=== PATIENT | female | born 1985 | race Caucasian/White ===

== ENCOUNTER 2016-12-24 11:37 | Observation (INO) | payer OTHER ==
[2016-12-24] MEDS ORDERED: DUONEB 0.5-3 MG/3 ml Neb IH ONE ×2 (12:31→12:38)
[2016-12-24] MEDS ORDERED: Sodium Chloride 0.9% 1000 ML 1,000 ML ONE (12:34)
--- NOTE | 2016-12-24 12:39 | ERPHSYRPT ---
- History of Present Illness Time Seen by Provider: 12/24/16 12:28 Source: patient Exam Limitations: no limitations Patient Subjective Stated Complaint: SOB SINCE EARLY THIS AM Triage Nursing Assessment: TO ROOM PER W/C. SKIN W/D, COLOR NORMAL, RESP RAPID , PATIENT HYPERVENTILATING. ENCOURAGED TO TAKE DEEP BREATHS AND SLOW BREATHING. STATES ARMS AND HANDS NUMB. STATES INHALER DIDN'T HELP HER TODAY. BREATH SOUNDS CLEAR THROUGHOUT. AFTER ENCOURAGEMENT TO SLOW BREATHING PATIENT 'S RESP HAVE SLOWED AND STATES SHE FEELS BETTER. Physician History: 31-year-old white female with history of migraines, seizures, hypothyroidism, hydrocephalus, shunt spina bifida Patient arrives with complaint of sudden onset of shortness of breath at 8:30 this morning she states she has been short of breath all day she states that she usually gets like this and gets improvement after using an inhaler however it continues. Patient apparently arrived the hyperventilating per nurse. Shortly after I began examining the patient when I sit her up and asked her to breathe she begins to complain of sharp pains in her left upper lateral abdomen as well She states she continues to feel short of breath Past medical history includes migraines, seizures, hypothyroidism, abnormal uterine bleeding, hydrocephalus, shunt, spina bifida Past surgical history includes , tubal ligation, shunt for hydrocephalus. Social history positive tobacco use Timing/Duration: today (8:30 this morning) Severity: moderate Modifying Factors: Improves With: other (no relief with albuterol) Associated Symptoms: abdominal pain (left upper lateral abdominal pain), shortness of breath, No nausea, No vomiting, No heartburn, No diaphoresis, No cough, No chills, No chest pain, No fever, No headaches, No loss of appetite, No malaise, No rash, No syncope, No seizure, No weakness Allergies/Adverse Reactions: aspirin Allergy (Verified 12/24/16 11:41) ibuprofen Allergy (Verified 12/24/16 11:41) Home Medications: Phentermine HCl [Adipex-P] 37.5 mg PO DAILY 12/24/16 [History] Hx Tetanus, Diphtheria Vaccination/Date Given: No Hx Influenza Vaccination/Date Given: No Hx Pneumococcal Vaccination/Date Given: No - Review of Systems Constitutional: No Fever, No Chills Eyes: No Symptoms Ears, Nose, & Throat: No Symptoms Respiratory: Other (patient feels short of breath) Cardiac: No Chest Pain, No Edema, No Syncope Abdominal/Gastrointestinal: Abdominal Pain (left upper lateral abdominal pain) Genitourinary Symptoms: No Dysuria Musculoskeletal: No Back Pain, No Neck Pain Skin: No Rash Neurological: Parasthesia (paresthesias of both hands), No Dizziness, No Focal Weakness, No Gait Changes, No Headache, No Irritability, No Lethargy, No Paralysis, No Seizure, No Sensory Changes, No Speech Changes, No Tics, No Tremors, No Vertigo Psychological: No Symptoms Endocrine: No Symptoms All Other Systems: Reviewed and Negative - Past Medical History Pertinent Past Medical History: Yes Neurological History: Migraines, Seizures ENT History: No Pertinent History Cardiac History: No Pertinent History Respiratory History: No Pertinent History Endocrine Medical History: Hypothyroidism Musculoskeletal History: Other GI Medical History: No Pertinent History History: No Pertinent History Female Reproductive Disorders: Abnormal Uterine Bleeding Other Medical History: HAVE SHUNT BETWEEN SHOULDER BLADES D/T HAVING. SPINA Bifida placed when she was 2 - Past Surgical History Past Surgical History: Yes Neuro Surgical History: No Pertinent History Cardiac: No Pertinent History Respiratory: No Pertinent History Gastrointestinal: No Pertinent History Genitourinary: Other Female Surgical History: Section, Tubal Ligation Other Surgical History: KIDNEY REMOVED LEFT SIDE - Social History Smoking Status: Former smoker How long have you smoked: 12 Exposure to second hand smoke: No Drug Use: none Patient Lives Alone: No Significant Family History: no pertinent family hx - Female History Hx Now: No - Nursing Vital Signs Nursing Vital Signs: Initial Vital Signs Temperature 98 F 12/24/16 11:38 Pulse Rate 97 H 12/24/16 11:38 Respiratory Rate 26 H 12/24/16 11:38 Blood Pressure 158/79 12/24/16 11:38 O2 Sat by Pulse Oximetry 100 12/24/16 11:38 Pain Scale Pain Intensity 0 - Physical Exam General Appearance: other (well-developed obese white female flushed in appearnce, anxious) Eye Exam: PERRL/EOMI, eyes nml inspection Ears, Nose, Throat Exam: normal ENT inspection, TMs normal, pharynx normal, moist mucous membranes Neck Exam: normal inspection, non-tender, supple, full range of motion Respiratory Exam: lungs clear, airway intact, diminished breath sounds, No chest tenderness, No respiratory distress Cardiovascular Exam: regular rate/rhythm, normal heart sounds, normal peripheral pulses Gastrointestinal/Abdomen Exam: soft, normal bowel sounds, tenderness (Tender left upper lateral abdomen. With palpation), No mass Back Exam: normal inspection, normal range of motion, No CVA tenderness, No vertebral tenderness Extremity Exam: normal inspection, normal range of motion, pelvis stable Neurologic Exam: alert, oriented x 3, cooperative, normal mood/affect, nml cerebellar function, nml station & gait, sensation nml, No motor deficits Skin Exam: other (Flushed in appearance) SpO2 Interpretation: normal (100%) SpO2: 100 Oxygen Delivery: Room Air - Course Nursing assessment & vital signs reviewed: Yes EKG Interpreted by Me: RATE (93 bpm), Sinus Rhythm, NORMAL AXIS, Other (EKG sinus rhythm with moderate amount of artifact, 93 bpm normal axis no acute ST or T wave changes noted) - Radiology Exams Chest X-ray Interpretation: Discussed w/ radiologist, Other (chest x-ray; Normal heart longer and bony thorax) Ordered Tests: Active Orders 24 hr Category Date Time Status EKG-ER Only STAT Care 12/24/16 12:31 Active IV Insertion STAT Care 12/24/16 12:31 Active CHEST 1 VIEW (PORTABLE) Stat Exams 12/24/16 13:23 Completed AMYLASE Stat Lab 12/24/16 12:00 Completed CBC W DIFF Stat Lab 12/24/16 12:00 Completed CMP Stat Lab 12/24/16 12:00 Completed CULTURE,URINE Stat Lab 12/24/16 14:25 Received D-DIMER QUANTITATION Stat Lab 12/24/16 12:00 Completed HCG QUALITATIVE,SERUM Stat Lab 12/24/16 12:00 Completed LIPASE Stat Lab 12/24/16 12:00 Completed Manual Differential NC Stat Lab 12/24/16 12:00 Completed TROPONIN Q3H Lab 12/24/16 12:45 Ordered TROPONIN Q3H Lab 12/24/16 15:45 Ordered TROPONIN Q3H Lab 12/24/16 18:45 Ordered TROPONIN Q3H Lab 12/24/16 21:45 Ordered TROPONIN Q3H Lab 12/25/16 00:45 Ordered UA W/ MICROSCOPIC Stat Lab 12/24/16 14:25 Completed VENOUS BLOOD GAS Stat Lab 12/24/16 12:31 Completed Respiratory Nebulizer STAT RT 12/24/16 12:33 Completed Medication Summary Generic Name Dose Route Start Last Admin Trade Name Freq PRN Reason Stop Dose Admin Sodium Chloride 1,000 mls @ 100 mls/hr 12/24/16 12:45 12/24/16 12:38 Sodium Chloride 0.9% 1000 Ml IV 01/23/17 12:44 100 mls/hr .Q10H ANTOINE Administration Ceftriaxone Sodium/Dextrose 1 g in 50 mls @ 100 mls/hr 12/24/16 15:06 Rocephin 1 Gm-D5w 50 Ml Bag IV 12/24/16 15:35 STAT STA Discontinued Medications Generic Name Dose Route Start Last Admin Trade Name Pedro Pablo PRN Reason Stop Dose Admin Albuterol/Ipratropium 3 ml 12/24/16 12:31 12/24/16 12:42 Duoneb 0.5-3 Mg/3 Ml Neb IH 12/24/16 12:32 3 ml STAT ONE Administration Albuterol/Ipratropium Confirm 12/24/16 12:38 Duoneb 0.5-3 Mg/3 Ml Neb Administered 12/24/16 12:39 Dose 3 ml IH .STK-MED ONE Lab/Rad Data: Laboratory Result Diagrams 12/24/16 12:00 12/24/16 12:00 Laboratory Results 12/24/16 12/24/16 12/24/16 Range/Units 14:25 12:31 12:00 WBC (4.0-10.5) K/mm3 RBC (4.1-5.4) M/mm3 Hgb (12.0-16.0) gm/dl Hct (35-47) % MCV (78-100) fl MCH (26-32) pg MCHC (32-36) g/dl RDW (11.5-14.0) % Plt Count (150-450) K/mm3 MPV (6-9.5) fl Segmented Neutrophils (36.0-66.0) % Lymphocytes (Manual) (24-44) % Monocytes (Manual) (0.0-12.0) % Differential Comment Platelet Estimate (NORMAL) D-Dimer (0-500) ng/mL VBG pH 7.62 H* (7.32-7.42) VBG pCO2 at Pat Temp 20 L* (42-55) mm/Hg VBG pO2 at Pat Temp 14 L (25-40) mm/Hg VBG HCO3 20.6 L (22-28) meq/L VBG O2 Sat (Ani) 31.8 L (95-100) VBG Base Excess 1.9 (-2.0-2.0) VBG Hemoglobin 15.7 VBG Carboxyhemoglobin 1.6 (0.0-6.9) % T HGB POC Potassium 3.0 L* (3.5-5.1) Sodium (136-145) mEq/L Potassium (3.5-5.1) mEq/L Chloride (98-107) mEq/L Carbon Dioxide (21-32) mEq/L Anion Gap (5-15) MEQ/L BUN (9-20) mg/dL Creatinine (0.55-1.30) mg/dl Estimated GFR ML/MIN Glucose (70-110) MG/DL Calcium (8.5-10.1) mg/dL Total Bilirubin (0.2-1.0) mg/dL AST (15-37) U/L ALT (12-78) U/L Alkaline Phosphatase (46-116) U/L Serum Total Protein (6.4-8.2) gm/dL Albumin (3.4-5.0) g/dL Amylase (25-115) U/L Lipase (73-393) U/L Serum , Qual NEGATIVE (Negative) Ur Collection Type VOID Urine Color YELLOW (YELLOW) Urine Appearance CLOUDY (CLEAR) Urine pH 8.0 (5-6) Ur Specific [place] 1.005 (1.005-1.025) Urine Protein NEGATIVE (Negative) Urine Ketones MODERATE (NEGATIVE) Urine Blood 5-10 (0-5) Victor M/ul Urine Nitrite NEGATIVE (NEGATIVE) Urine Bilirubin NEGATIVE (NEGATIVE) Urine Urobilinogen 1 (0-1) mg/dL Ur Leukocyte Esterase 2+ (NEGATIVE) Urine Microscopic RBC 0-2 (0-2) /HPF Urine Microscopic WBC 25-50 (0-5) /HPF Ur Epithelial Cells MANY (FEW) /HPF Urine Bacteria MODERATE (NEGATIVE) /HPF Urine Glucose NEGATIVE (NEGATIVE) mg/dL Specimen Received 12/24/16 1425 12/24/16 12/24/16 12/24/16 Range/Units 12:00 12:00 12:00 WBC 7.2 (4.0-10.5) K/mm3 RBC 4.52 (4.1-5.4) M/mm3 Hgb 13.9 (12.0-16.0) gm/dl Hct 40.2 (35-47) % MCV 88.9 (78-100) fl MCH 30.8 (26-32) pg MCHC 34.6 (32-36) g/dl RDW 12.5 (11.5-14.0) % Plt Count 234 (150-450) K/mm3 MPV 10.2 H (6-9.5) fl Segmented Neutrophils 92 H (36.0-66.0) % Lymphocytes (Manual) 4 L (24-44) % Monocytes (Manual) 4 (0.0-12.0) % Differential Comment NORMAL Platelet Estimate NORMAL (NORMAL) D-Dimer 782 H* (0-500) ng/mL VBG pH (7.32-7.42) VBG pCO2 at Pat Temp (42-55) mm/Hg VBG pO2 at Pat Temp (25-40) mm/Hg VBG HCO3 (22-28) meq/L VBG O2 Sat (Ani) (95-100) VBG Base Excess (-2.0-2.0) VBG Hemoglobin VBG Carboxyhemoglobin (0.0-6.9) % T HGB POC Potassium (3.5-5.1) Sodium 139 (136-145) mEq/L Potassium 3.3 L (3.5-5.1) mEq/L Chloride 104 (98-107) mEq/L Carbon Dioxide 21.0 (21-32) mEq/L Anion Gap 16.9 H (5-15) MEQ/L BUN 8 L (9-20) mg/dL Creatinine 1.13 (0.55-1.30) mg/dl Estimated GFR 59 ML/MIN Glucose 105 (70-110) MG/DL Calcium 9.4 (8.5-10.1) mg/dL Total Bilirubin 1.20 H (0.2-1.0) mg/dL AST 34 (15-37) U/L ALT 47 (12-78) U/L Alkaline Phosphatase 104 (46-116) U/L Serum Total Protein 7.2 (6.4-8.2) gm/dL Albumin 3.5 (3.4-5.0) g/dL Amylase 18 L (25-115) U/L Lipase 54 L (73-393) U/L Serum , Qual (Negative) Ur Collection Type Urine Color (YELLOW) Urine Appearance (CLEAR) Urine pH (5-6) Ur Specific [place] (1.005-1.025) Urine Protein (Negative) Urine Ketones (NEGATIVE) Urine Blood (0-5) Victor M/ul Urine Nitrite (NEGATIVE) Urine Bilirubin (NEGATIVE) Urine Urobilinogen (0-1) mg/dL Ur Leukocyte Esterase (NEGATIVE) Urine Microscopic RBC (0-2) /HPF Urine Microscopic WBC (0-5) /HPF Ur Epithelial Cells (FEW) /HPF Urine Bacteria (NEGATIVE) /HPF Urine Glucose (NEGATIVE) mg/dL Specimen Received - Progress Progress: improved Progress Note: 12/24/16 14:00 31-year-old white female arrives with complaint of shortness of breath since this morning without relief with her nebulizer. Patient arrives hyperventilating and when sat up she began to complain of pain in the left upper abdomen Patient's chest x-ray is unremarkable patient's venous gases show a pH of 7.62 PCO2 of 20 d-dimer is a elevated at 782 normal 0-500 ng/mL Chemistry shows sodium 139 potassium 33 chloride 104 carbon dioxide 21 BUN 8 creatinine 1.13 with the GFR of 59 hCG is negative CBC is within normal limits. EKG sinus rhythm moderate amount of artifact 93 bpm normal axis no acute ST or T wave changes are noted. Patient seems to be improved after receiving a liter of normal saline and receiving a DuoNeb treatment. I had considered obtaining a CTA of the patient's chest however, unfortunately, patient tells me she only has one half of one kidney left and the other one has been removed. Awaiting urinalysis on this patient Will discuss case with Dr. Robert the patient 's family doctor. 12/24/16 15:02 Case has been discussed with Dr. Robert Will place patient on observation diagnosis: Hyperventilation, shortness of breath, bronchospasm, UTI Will provide patient with Rocephin 1 g IV to cover her urinary tract infection. This patient does not have a clinical picture of pulmonary embolism patient only has one kidney and she states she has reduction of function of the kidney in the past therefore we will not give the patient contrast or obtain CTA. Patient is feeling better. I have discussed placing the patient on observation providing IV fluids provided IV antibiotics providing albuterol treatments with the patient she is agreeable to this. 12/24/16 15:06 Patient was offered pain medications she does not want any. - Departure Time of Disposition: 15:07 Departure Disposition: Observation Clinical Impression: Shortness of breath, Hyperventilation, Bronchospasm UTI (urinary tract infection) Qualifiers: Urinary tract infection type: site unspecified Hematuria presence: with hematuria Qualified Code(s): N39.0 - Urinary tract infection, site not specified Condition: Fair Critical Care Time: No Referrals: FLAQUITA ROBERT MD [Primary Care Provider] -
[2016-12-24] MEDS ORDERED: Sodium Chloride 0.9% 1000 ML 1,000 ML IV SCH (12:45)
[2016-12-24 12:51] LABS: Mean Cell Volume 88.9 fl (78-100); Mean Corpuscular Hemoglobin 30.8 pg (26-32); Mean Platelet Volume 10.2 fl (6-9.5); Platelet Count 234 K/mm3 (150-450); Red Blood Count 4.52 M/mm3 (4.1-5.4); Red Cell Distribution Width 12.5 % (11.5-14.0); White Blood Count 7.2 K/mm3 (4.0-10.5)
[2016-12-24 12:58] LABS: VBG BASE EXCESS 1.9 (-2.0-2.0); VBG CARBOXYHEMOGLOBIN 1.6 % T HGB (0.0-6.9); VBG HCO3- 20.6 meq/L (22-28); VBG HEMOGLOBIN 15.7; VBG O2 SATURATION 31.8 (95-100); VBG pH 7.62 (7.32-7.42)
[2016-12-24 13:08] LABS: ALBUMIN 3.5 g/dL (3.4-5.0); ANION GAP 16.9 MEQ/L (5-15); BILIRUBIN,TOTAL 1.2 mg/dL (0.2-1.0); Potassium 3.3 mEq/L (3.5-5.1); Total Protein 7.2 gm/dL (6.4-8.2)
--- NOTE | 2016-12-24 13:48 | XRAY ---
Indication: Short of breath. Comparison: May 19, 2012. Portable chest again demonstrates normal heart, lungs, and bony thorax.
[2016-12-24 14:31] LABS: Total Cells Counted 100
[2016-12-24 14:33] LABS: ADD URINE CULTURE? YES (NO); Bilirubin NEGATIVE (NEGATIVE); COMPLETE URINE MICROSCOPIC? YES; Collection Type VOID; Glucose NEGATIVE (NEGATIVE); Leukocyte Esterase 2+ (NEGATIVE)
[2016-12-24 14:33] LABS: Platelet Estimate NORMAL (NORMAL)
[2016-12-24 14:52] LABS: Bacteria MODERATE /HPF (NEGATIVE); Epithelial Cells MANY /HPF (FEW); WBC 25-50 /HPF (0-5)
[2016-12-24] MEDS ORDERED: ROCEPHIN 1 Gm-D5w 50 ml Bag** 1 G/50 ML IVPB IV STA (15:06)
[2016-12-24] MEDS ORDERED: ROCEPHIN 1 Gm-D5w 50 ml Bag** 1 G/50 ML IVPB IV ONE (15:53)
[2016-12-24] MEDS ORDERED: TYLENOL 325 MG PO STA (15:57)
[2016-12-24] MEDS ORDERED: TYLENOL 325 MG ONE (16:01)
[2016-12-24] MEDS ORDERED: DUONEB 0.5-3 MG/3 ml Neb IH PRN (16:39)
[2016-12-24] MEDS: Sodium Chloride 0.9% 1000 ML 1,000 ML IV SCH (17:44)
[2016-12-24] MEDS: TYLENOL 325 MG PO PRN (20:48)
--- NOTE | 2016-12-24 22:27 | PCM.HP ---
History of Present Illness - Chief Complaint Chief Complaint: sob Date: 12/24/16 History of Present Illness: is a 31 year old female. with history of kidney impairment and loss of 1 kidney and recurrent urinary tract infections with previous surgical repair of her ureters, who began having fevers last night. She then woke up this am with shortness of breath. She has asthmatic bronchitis and used her inhaler and was unsuccessful at relieving her shortness of breath. She was having fevers and chills but otherwise was without symptoms no coughing no chest pain. She thus presented to the ED. On evaluation she was found to have oxygen levels at 100% on room air reportedly but was tachypneic and had vbg done showing acute metablolic alkalosis. Of note she is also on phentyrmine but reports not taking it today. She feels she is just unable to get her air and winded and is having fevers and some dull aching in her left upper and lower quadrant of her abdomen but nothing in her chest. She is very nervous as she was told in the ED that her kidneys were failing and she needed a transplant and she was told by her nephrologists she states to not get contrast. - Review of Systems Constitutional: Fever, Chills, Fatigue Eyes: No Symptoms Ears, Nose, & Throat: No Symptoms Respiratory: Short Of Breath, No Cough, No Wheezing Cardiac: No Chest Pain, No Edema, No Syncope Abdominal/Gastrointestinal: No Abdominal Pain, No Nausea, No Vomiting, No Diarrhea Genitourinary Symptoms: No Dysuria Musculoskeletal: No Back Pain, No Neck Pain Skin: No Rash Neurological: Dizziness, No Focal Weakness, No Sensory Changes Psychological: No Symptoms Endocrine: No Symptoms Hematologic/Lymphatic: No Symptoms Immunological/Allergic: No Symptoms Medications & Allergies Home Medications: Home Medication List Phentermine HCl [Adipex-P] 37.5 mg PO DAILY 12/24/16 [History Confirmed 12/24/16 ] Allergies/Adverse Reactions: Allergies Allergy/AdvReac Type Severity Reaction Status Date / Time aspirin Allergy Verified 12/24/16 11:41 ibuprofen Allergy Verified 12/24/16 11:41 tape AdvReac Uncoded 12/24/16 17:56 - Past Medical History Past Medical History: Yes Neurological History: Migraines ENT History: No Pertinent History Cardiac History: No Pertinent History Respiratory History: Asthma, Bronchitis Endocrine Medical History: Adrenal Insufficiency Musculoskelatal History: Other GI Medical History: No Pertinent History History: Renal Disease Pyscho-Social History: No Pertinent History Reproductive Disorders: Menstrual Problems Comment: L foot bone spures, and spina bifidia - Female History Are you now?: No - Past Surgical History Past Surgical History: Yes (shunt, tethered spine x3,kid) Neuro Surgical History: No Pertinent History Cardiac History: No Pertinent History Respiratory Surgery: No Pertinent History GI Surgical History: Cholecystectomy Genitourinary Surgical Hx: Kidney Surgery Musculskeletal Surgical Hx: No Pertinent History Female Surgical History: Section Other Surgical History: KIDNEY REMOVED LEFT SIDE - Social History Smoking Status: Never smoker How long have you smoked: 12 Exposure to second hand smoke: No Alcohol: None Drug Use: none Significant Family History: no pertinent family hx - Physical Exam Vital Signs: Vital Signs - 24 hr Temp Pulse Resp BP Pulse Ox 12/24/16 20:00 98.6 F 122 H 25 H 126/78 99 12/24/16 19:00 118 H 25 H 99 12/24/16 16:39 99.4 F 116 H 20 170/76 96 12/24/16 15:51 100.9 F 12/24/16 15:10 100 12/24/16 13:06 98.2 F 92 H 24 145/79 100 12/24/16 12:42 100 12/24/16 11:38 98 F 97 H 26 H 158/79 100 General Appearance: no apparent distress, alert, obese Neurologic Exam: alert, oriented x 3, cooperative, normal mood/affect, nml cerebellar function, nml station & gait, sensation nml, No motor deficits Eye Exam: PERRL/EOMI, eyes nml inspection Ears, Nose, Throat Exam: normal ENT inspection, TMs normal, pharynx normal, moist mucous membranes Neck Exam: normal inspection, non-tender, supple, full range of motion Respiratory Exam: normal breath sounds, lungs clear, No respiratory distress Cardiovascular Exam: regular rate/rhythm, normal heart sounds, normal peripheral pulses, other (rate currently 90) Gastrointestinal/Abdomen Exam: soft, normal bowel sounds, No tenderness, No mass Back Exam: normal inspection, normal range of motion, No CVA tenderness, No vertebral tenderness Extremity Exam: normal inspection, normal range of motion, pelvis stable Skin Exam: normal color, warm, dry, No rash Lymphatic Exam: No adenopathy Results - Other Procedures and Tests Respiratory Therapy 12/24/16 18:59 Respiratory Nebulizer PRN Assessment/Plan (1) UTI (urinary tract infection) Current Visit: Yes Status: Acute Qualifiers: Urinary tract infection type: site unspecified Hematuria presence: with hematuria Qualified Code(s): N39.0 - Urinary tract infection, site not specified; R31.9 - Hematuria, unspecified Assessment & Plan: she is febrile with most likely source of infection urine at this time covered with Rocephin monitor urine and blood cultures continue hydration Long discussion with the patient about potential etiology of primary respiratory alkalosis as being from the fever and UTI vs pulmonary embolism with fever also possibly from this. Given her elevated D-Dimer in the ED will go ahead and therapeutically anticoagulate. She has GFR of 59 currently and only one functioning kidney with patient reported partial damage to it as well and she reports her cut filer told her to never have dye. Will thus therapeutically anticoagulate and plan for VQ scan when available keep on therapeutic anticoagulation we can discuss with her cut filer in am if she is improving about if CT PE protocol is safe in her or if we should wait for VQ scan. Code(s): N39.0 - URINARY TRACT INFECTION, SITE NOT SPECIFIED (2) Acute respiratory alkalosis Current Visit: Yes Status: Acute Code(s): E87.3 - ALKALOSIS (3) CKD (chronic kidney disease) Current Visit: Yes Status: Chronic Assessment & Plan: follows outpatient with Dr. Bc Bowman Code(s): N18.9 - CHRONIC KIDNEY DISEASE, UNSPECIFIED (4) D-dimer, elevated Current Visit: Yes Status: Acute Code(s): R79.89 - OTHER SPECIFIED ABNORMAL FINDINGS OF BLOOD CHEMISTRY
[2016-12-24] MEDS: ENOXAPARIN SODIUM SQ SCH (23:43)
[2016-12-25] MEDS: TYLENOL 325 MG PO PRN ×2 (01:32→22:19)
[2016-12-25] MEDS: Sodium Chloride 0.9% 1000 ML 1,000 ML IV SCH ×2 (04:01→13:54)
[2016-12-25 05:23] LABS: VBG BASE EXCESS -4.8 (-2.0-2.0); VBG CARBOXYHEMOGLOBIN 2.3 % T HGB (0.0-6.9); VBG HCO3- 19.5 meq/L (22-28); VBG HEMOGLOBIN 12.1; VBG POTASSIUM 3.3 (3.5-5.1); VBG pH 7.38 (7.32-7.42)
[2016-12-25 06:00] LABS: BASOPHIL % 0.1 % (0.0-0.4); Granulocytes % 71.3 % (36.0-66.0); Lymphocytes % 15.2 % (24.0-44.0); Mean Cell Volume 90.3 fl (78-100); Mean Platelet Volume 10.2 fl (6-9.5); Monocytes % 13.4 % (0.0-12.0); Platelet Count 186 K/mm3 (150-450); Red Cell Distribution Width 13.1 % (11.5-14.0); White Blood Count 7.2 K/mm3 (4.0-10.5)
[2016-12-25 06:39] LABS: ALBUMIN 2.9 g/dL (3.4-5.0); ALKALINE PHOSPHATASE 93 U/L (46-116); ANION GAP 13.5 MEQ/L (5-15); BLOOD UREA NITROGEN 7 mg/dL (9-20); CHLORIDE 107 mEq/L (98-107); Carbon Dioxide 21.8 mEq/L (21-32); Glucose 94 MG/DL (70-110); Potassium 3.5 mEq/L (3.5-5.1); SGOT/AST 31 U/L (15-37); SGPT/ALT 47 U/L (12-78); SODIUM 139 mEq/L (136-145); Total Protein 5.7 gm/dL (6.4-8.2)
[2016-12-25] MEDS: ROCEPHIN 1 Gm-D5w 50 ml Bag** 1 G/50 ML IVPB IV SCH (09:53)
[2016-12-25] MEDS: ENOXAPARIN SODIUM SQ SCH ×2 (09:53→22:10)
[2016-12-25] MEDS: Imitrex 6 MG/0.5 ML SQ PRN (09:54)
[2016-12-25] MEDS: Phenergan 25 MG INJ IV PRN (10:00)
--- NOTE | 2016-12-25 10:56 | PCM.NOTE ---
Date and Time: 12/25/16 1053 Subjective Assessment: did not sleep last night currently suffering from one of her typical migraines this am with nausea and light sensitivity and very uncomfortable. breathing improved last night the abdominal pain improved as well. Objective Exam General Appearance: obese Neurologic Exam: alert, oriented x 3, cooperative Skin Exam: warm, dry Eye Exam: No scleral icterus, No pale conjunctivae Ears, Nose, Throat Exam: moist mucous membranes Neck Exam: non-tender, supple Respiratory Exam: normal breath sounds, lungs clear Cardiovascular Exam: regular rate/rhythm, normal heart sounds, No edema Gastrointestinal/Abdomen Exam: soft, normal bowel sounds, No tenderness Extremity Exam: normal inspection, No pedal edema OBJECTIVE DATA Vital Signs: Vital Signs - 24 hr Temp Pulse Resp BP Pulse Ox 12/25/16 07:46 98.5 F 78 18 117/66 96 12/25/16 04:00 98.6 F 88 20 115/61 99 12/24/16 23:30 99.6 F 92 H 20 109/52 100 12/24/16 20:00 98.6 F 122 H 25 H 126/78 99 12/24/16 19:00 118 H 25 H 99 12/24/16 16:39 99.4 F 116 H 20 170/76 96 12/24/16 15:51 100.9 F 12/24/16 15:10 100 12/24/16 13:06 98.2 F 92 H 24 145/79 100 12/24/16 12:42 100 12/24/16 11:38 98 F 97 H 26 H 158/79 100 Pain Assessment - Last Documented Pain Intensity 6 Pain Scale Used 0-10 Pain Scale Intake and Output: Intake & Output 12/22/16 12/23/16 12/24/16 12/25/16 11:59 11:59 11:59 11:59 Intake Total 8 Output Total 0 Balance 8 Weight 134.263 kg Lab Results: Lab Results-Last 24 Hours 12/25/16 12/25/16 12/25/16 Range/Units :06 10:17 05:17 WBC 7.2 (4.0-10.5) K/mm3 RBC 3.90 L (4.1-5.4) M/mm3 Hgb 11.7 L (12.0-16.0) gm/dl Hct 35.2 (35-47) % MCV 90.3 (78-100) fl MCH 30.0 (26-32) pg MCHC 33.2 (32-36) g/dl RDW 13.1 (11.5-14.0) % Plt Count 186 (150-450) K/mm3 MPV 10.2 H (6-9.5) fl Gran % 71.3 H (36.0-66.0) % Lymphocytes % 15.2 L (24.0-44.0) % Monocytes % 13.4 H (0.0-12.0) % Eosinophils % 0.0 (0.00-5.0) % Basophils % 0.1 (0.0-0.4) % Basophils # 0.01 (0-0.4) VBG pH (7.32-7.42) VBG pCO2 at Pat Temp (42-55) mm/Hg VBG pO2 at Pat Temp (25-40) mm/Hg VBG HCO3 (22-28) meq/L VBG O2 Sat (Ani) (95-100) VBG Base Excess (-2.0-2.0) VBG Hemoglobin VBG Carboxyhemoglobin (0.0-6.9) % T HGB POC Potassium (3.5-5.1) Sodium 139 (136-145) mEq/L Potassium 3.5 (3.5-5.1) mEq/L Chloride 107 (98-107) mEq/L Carbon Dioxide 21.8 (21-32) mEq/L Anion Gap 13.5 (5-15) MEQ/L BUN 7 L (9-20) mg/dL Creatinine 0.90 (0.55-1.30) mg/dl Estimated GFR > 60 ML/MIN Glucose 94 (70-110) MG/DL Calcium 8.2 L (8.5-10.1) mg/dL Total Bilirubin 0.90 (0.2-1.0) mg/dL AST 31 (15-37) U/L ALT 47 (12-78) U/L Alkaline Phosphatase 93 (46-116) U/L Serum Total Protein 5.7 L (6.4-8.2) gm/dL Albumin 2.9 L (3.4-5.0) g/dL TSH 3rd Generation 1.995 (0.358-3.740) mIU/L 12/25/16 Range/Units 05:20 WBC (4.0-10.5) K/mm3 RBC (4.1-5.4) M/mm3 Hgb (12.0-16.0) gm/dl Hct (35-47) % MCV (78-100) fl MCH (26-32) pg MCHC (32-36) g/dl RDW (11.5-14.0) % Plt Count (150-450) K/mm3 MPV (6-9.5) fl Gran % (36.0-66.0) % Lymphocytes % (24.0-44.0) % Monocytes % (0.0-12.0) % Eosinophils % (0.00-5.0) % Basophils % (0.0-0.4) % Basophils # (0-0.4) VBG pH 7.38 (7.32-7.42) VBG pCO2 at Pat Temp 33 L (42-55) mm/Hg VBG pO2 at Pat Temp 58 H (25-40) mm/Hg VBG HCO3 19.5 L (22-28) meq/L VBG O2 Sat (Ani) 95.0 (95-100) VBG Base Excess -4.8 L (-2.0-2.0) VBG Hemoglobin 12.1 VBG Carboxyhemoglobin 2.3 (0.0-6.9) % T HGB POC Potassium 3.3 L (3.5-5.1) Sodium (136-145) mEq/L Potassium (3.5-5.1) mEq/L Chloride (98-107) mEq/L Carbon Dioxide (21-32) mEq/L Anion Gap (5-15) MEQ/L BUN (9-20) mg/dL Creatinine (0.55-1.30) mg/dl Estimated GFR ML/MIN Glucose (70-110) MG/DL Calcium (8.5-10.1) mg/dL Total Bilirubin (0.2-1.0) mg/dL AST (15-37) U/L ALT (12-78) U/L Alkaline Phosphatase (46-116) U/L Serum Total Protein (6.4-8.2) gm/dL Albumin (3.4-5.0) g/dL TSH 3rd Generation (0.358-3.740) mIU/L Radiology Exams: Radiology Procedures Category Date Time Status PULMONARY PERF VENTILATION [NUCMED] Routine Exams 12/27/16 08:00 Ordered Assessment/Plan (1) UTI (urinary tract infection) Current Visit: Yes Status: Acute Qualifiers: Urinary tract infection type: site unspecified Hematuria presence: with hematuria Qualified Code(s): N39.0 - Urinary tract infection, site not specified; R31.9 - Hematuria, unspecified Assessment & Plan: monitor culture continue rocephin Code(s): N39.0 - URINARY TRACT INFECTION, SITE NOT SPECIFIED (2) Acute respiratory alkalosis Current Visit: Yes Status: Resolved Assessment & Plan: resolved Code(s): E87.3 - ALKALOSIS (3) CKD (chronic kidney disease) Current Visit: Yes Status: Chronic Assessment & Plan: mild but she has damage per patient to her 1 functioning kidney and has been told per patient to not use contrast dye by her special education classroom aide. Code(s): N18.9 - CHRONIC KIDNEY DISEASE, UNSPECIFIED (4) D-dimer, elevated Current Visit: Yes Status: Acute Assessment & Plan: with the shortness of breath, tachypnea, tachycardia, and elevated d-dimer and her inability to get CT with contrast will treat empirically with lovenox and get VQ scan she has no evidence on exam of dvt Code(s): R79.89 - OTHER SPECIFIED ABNORMAL FINDINGS OF BLOOD CHEMISTRY
[2016-12-26] MEDS: Phenergan 25 MG INJ IV PRN (01:08)
[2016-12-26] MEDS: Imitrex 6 MG/0.5 ML SQ PRN (06:47)
[2016-12-26] MEDS: ENOXAPARIN SODIUM SQ SCH ×2 (08:52→21:12)
[2016-12-26] MEDS: ROCEPHIN 1 Gm-D5w 50 ml Bag** 1 G/50 ML IVPB IV SCH (08:52)
--- NOTE | 2016-12-26 10:51 | PCM.NOTE ---
Date and Time: 12/26/16 1048 Subjective Assessment: feeling better today had 2 migraines yesterday and an episode of dizziness and palpitations her shortness of breath has improved and no chest pain no vomiting. She did have 1 episode of loose stool yesterday. Objective Exam General Appearance: no apparent distress, alert, obese Neurologic Exam: alert, oriented x 3, cooperative, normal mood/affect, nml cerebellar function, sensation nml, No motor deficits Skin Exam: normal color, warm, dry Eye Exam: PERRL, EOMI, eyes nml inspection Ears, Nose, Throat Exam: normal ENT inspection, pharynx normal, moist mucous membranes Neck Exam: normal inspection, non-tender, supple, full range of motion Respiratory Exam: normal breath sounds, lungs clear, No respiratory distress Cardiovascular Exam: regular rate/rhythm, normal heart sounds Gastrointestinal/Abdomen Exam: soft, No tenderness, No mass Extremity Exam: normal inspection, normal range of motion Back Exam: normal inspection, normal range of motion, No CVA tenderness, No vertebral tenderness Pelvic Exam: deferred Rectal Exam: deferred OBJECTIVE DATA Vital Signs: Vital Signs - 24 hr Temp Pulse Resp BP Pulse Ox 12/26/16 07:30 97.8 F 55 L 18 115/59 96 12/26/16 07:08 89 16 99 12/26/16 04:00 97.9 F 68 20 115/63 99 12/26/16 00:00 99.0 F 88 20 130/66 95 12/25/16 20:06 92 H 18 100 12/25/16 20:00 98.6 F 88 20 127/75 98 12/25/16 16:00 98.2 F 82 18 123/83 100 12/25/16 11:16 98.5 F 65 18 124/72 98 Pain Assessment - Last Documented Pain Intensity 6 Pain Scale Used 0-10 Pain Scale Intake and Output: Intake & Output 12/23/16 12/24/16 12/25/16 12/26/16 11:59 11:59 11:59 11:59 Intake Total 2087 2089 Output Total 450 3050 Balance 1638 -960 Weight 134.263 kg Radiology Exams: Radiology Procedures Category Date Time Status PULMONARY PERF VENTILATION [NUCMED] Routine Exams 12/27/16 08:00 Ordered Assessment/Plan (1) UTI (urinary tract infection) Current Visit: Yes Status: Acute Qualifiers: Urinary tract infection type: site unspecified Hematuria presence: with hematuria Qualified Code(s): N39.0 - Urinary tract infection, site not specified; R31.9 - Hematuria, unspecified Assessment & Plan: the culture just showing mixed kareen given her fevers, sob, respiratory alkalosis and elevated D-Dimer discussed importance of rule out PE awaiting the VQ scan she is on therapeutic lovenox pending the VQ scan as her laboratory development technician told her she can never have contrast dye. Code(s): N39.0 - URINARY TRACT INFECTION, SITE NOT SPECIFIED (2) Acute respiratory alkalosis Current Visit: Yes Status: Resolved Code(s): E87.3 - ALKALOSIS (3) CKD (chronic kidney disease) Current Visit: Yes Status: Chronic Code(s): N18.9 - CHRONIC KIDNEY DISEASE, UNSPECIFIED (4) D-dimer, elevated Current Visit: Yes Status: Acute Code(s): R79.89 - OTHER SPECIFIED ABNORMAL FINDINGS OF BLOOD CHEMISTRY
[2016-12-26] MEDS ORDERED: Sodium Chloride 0.9% 10 ML FLUSH Syringe IV PRN (10:57)
[2016-12-26] MEDS: Sodium Chloride 0.9% 10 ML FLUSH Syringe IV SCH ×2 (15:00→21:18)
[2016-12-26] MEDS: BENADRYL 25 MG CAPSULE PO PRN ×2 (15:16→20:12)
[2016-12-27] MEDS: BENADRYL 25 MG CAPSULE PO PRN (00:36)
[2016-12-27] MEDS: Sodium Chloride 0.9% 10 ML FLUSH Syringe IV SCH (06:35)
--- NOTE | 2016-12-27 07:47 | PCM.NOTE ---
Date and Time: 12/27/16 0745 Subjective Assessment: patient feeling much better today, no chest pain or dyspnea. eating and drinking normally Objective Exam General Appearance: no apparent distress, alert Skin Exam: normal color, warm, dry Respiratory Exam: normal breath sounds, lungs clear, No respiratory distress Cardiovascular Exam: regular rate/rhythm, normal heart sounds Gastrointestinal/Abdomen Exam: soft, No tenderness, No mass Extremity Exam: normal inspection, normal range of motion OBJECTIVE DATA Vital Signs: Vital Signs - 24 hr Temp Pulse Resp BP Pulse Ox 12/27/16 03:42 98.1 F 66 22 122/59 98 12/27/16 00:00 97.9 F 63 16 127/70 96 12/26/16 19:48 98.4 F 78 20 123/76 99 12/26/16 19:14 88 18 99 12/26/16 16:00 97.9 F 66 18 119/59 99 12/26/16 12:00 98.1 F 73 16 112/59 97 Pain Assessment - Last Documented Pain Intensity 0 [facility] Intake and Output: Intake & Output 12/24/16 12/25/16 12/26/16 12/27/16 11:59 11:59 11:59 11:59 Intake Total 2088 2630 1500 Output Total 450 3050 400 Balance 1638 -420 1100 Weight 134.263 kg Radiology Exams: Radiology Procedures Category Date Time Status PULMONARY PERF VENTILATION [NUCMED] Routine Exams 12/27/16 08:00 Ordered Assessment/Plan (1) Acute respiratory alkalosis Current Visit: Yes Status: Resolved Assessment & Plan: doing better at this time, sats are normal. Code(s): E87.3 - ALKALOSIS (2) Hyperventilation Current Visit: Yes Status: Acute Assessment & Plan: doing well at this time, no symptoms Code(s): R06.4 - HYPERVENTILATION (3) D-dimer, elevated Current Visit: Yes Status: Acute Code(s): R79.89 - OTHER SPECIFIED ABNORMAL FINDINGS OF BLOOD CHEMISTRY (4) CKD (chronic kidney disease) Current Visit: Yes Status: Chronic Code(s): N18.9 - CHRONIC KIDNEY DISEASE, UNSPECIFIED
[2016-12-27] MEDS: ENOXAPARIN SODIUM SQ SCH (11:03)
[2016-12-27] MEDS: ROCEPHIN 1 Gm-D5w 50 ml Bag** 1 G/50 ML IVPB IV SCH (11:03)
[2016-12-27 12:13] VITALS: O2SAT 98
--- NOTE | 2016-12-27 13:49 | PCM.DS ---
Discharge Summary Date of Admission: 12/24/16 16:34 Admitting Physician: FLAQUITA ROBERT Primary Care Provider: FLAQUITA ROBERT Allergies Allergies aspirin Allergy (Verified 12/24/16 11:41) ibuprofen Allergy (Verified 12/24/16 11:41) tape Adverse Reaction (Uncoded 12/24/16 17:56) Hospital Summary - Hospital Course Hospital Course: patient was admitted with chest pain, respiratory alkalosis and shortness of breath. all symptoms resolved, had a negative VQ scan after administration due to single kidney and elevated d-dimer - Vitals & Intake/Output Vital Signs: Vital Signs Temperature 98.4 F 12/27/16 12:00 Pulse Rate 62 12/27/16 12:00 Respiratory Rate 18 12/27/16 12:00 Blood Pressure 125/71 12/27/16 12:00 O2 Sat by Pulse Oximetry 98 12/27/16 12:00 Intake & Output: Intake & Output 12/25/16 12/26/16 12/27/16 12/28/16 11:59 11:59 11:59 11:59 Intake Total 2088 2630 1640 240 Output Total 450 3050 400 Balance 1638 -420 1240 240 Weight 134.263 kg - Lab Result Diagrams: 12/25/16 05:17 12/25/16 05:17 - Radiology Exams Ordered Rad Exams-Entire Visit: Radiology Procedures Category Date Time Status PULMONARY PERF VENTILATION [NUCMED] Routine Exams 12/27/16 08:00 Taken - Procedures and Test Procedures and Tests throughout Hospitalization: Therapy Orders & Screens 12/24/16 18:59 Respiratory Nebulizer PRN Comment: q4 prn duoneb Diagnosis: sob Discharge Exam General Appearance: no apparent distress, alert Skin Exam: normal color, warm, dry Ears, Nose, Throat Exam: normal ENT inspection, pharynx normal, moist mucous membranes Respiratory Exam: normal breath sounds, lungs clear, No respiratory distress Cardiovascular Exam: regular rate/rhythm, normal heart sounds Gastrointestinal/Abdomen Exam: soft, No tenderness, No mass Extremity Exam: normal inspection, normal range of motion Final Diagnosis/Problem List - Final Discharge Diagnosis/Problem (1) Acute respiratory alkalosis Current Visit: Yes Status: Resolved (2) Hyperventilation Current Visit: Yes Status: Acute (3) D-dimer, elevated Current Visit: Yes Status: Acute (4) CKD (chronic kidney disease) Current Visit: Yes Status: Chronic - Discharge Disposition: Home, Self-Care Condition: Good Prescriptions: New Albuterol Sulfate [Albuterol Sulfate Hfa] 2 puff IH Q4-6HPRN PRN #1 [email or web address] PRN Reason: Cough Continue Phentermine HCl [Adipex-P] 37.5 mg PO DAILY Follow up with: FLAQUITA ROBERT MD [Primary Care Provider] -
--- NOTE | 2016-12-27 14:38 | XRAY ---
Indication: Short of breath and right upper chest pain. Elevated d-dimer. Comparison: None Patient received 4.06 mCi technetium 99 microaggregated albumin for the perfusion portion of the exam. Patient inhaled 34.6 mCi of aerosolized technetium 99 DTPA for the ventilation portion of the exam. Multiplanar images obtained. Perfusion images demonstrates homogeneous radiopharmaceutical activity bilaterally without focal perfusion defect. Ventilation images also demonstrates homogeneous radiopharmaceutical activity bilaterally. Small amount of ingested radiopharmaceutical in the GI tract. Impression: Normal nuclear medicine ventilation/perfusion scan.
[2016-12-27 14:49] VITALS: BP 126/77; PULSE 72
== END 2016-12-27 14:50 | disposition home or self-care (01) ==
LOC: ED 11:37 → MED SURG 16:34
PROVIDERS: ADMIT Family Medicine; ATTEND Family Medicine
DX: E87.3 Alkalosis (principal); R06.4 Hyperventilation; R79.89 Other specified abnormal findings of blood chemistry; N18.9 Chronic kidney disease, unspecified; N39.0 Urinary tract infection, site not specified; J45.909 Unspecified asthma, uncomplicated
CPT/HCPCS: 36000; 36415; 71010; 78582; 80053; 81000; 82150; 82805; 83690; 84443; 84484; 84703; 85025; 85379; 87040; 87086; 93005; 93268; 94640; 94760; 96360; 96361; 96365; 99285; A9540; A9567; G0378; J0696; J1650; J2550; J3030; A9270-GY

== ENCOUNTER 2019-06-19 07:37 | Day surgery (SDC) | payer MEDICARE ==
[2019-06-19] MEDS ORDERED: Lactated Ringers 1,000 ML IV SCH (08:00)
[2019-06-19] MEDS ORDERED: Lactated Ringers 1,000 ML IV ONE ×2 (08:01→10:06)
[2019-06-19 08:43] LABS: ALBUMIN 3.7 g/dL (3.5-5.0); ALKALINE PHOSPHATASE 112 U/L (38-126); ANION GAP 11.7 MEQ/L (5-15); BLOOD UREA NITROGEN 15 mg/dL (7-17); CHLORIDE 105 mmol/L (98-107); Calcium 8.9 mg/dL (8.4-10.2); Carbon Dioxide 26 mmol/L (22-30); Creatinine 1 0.72 mg/dL (0.52-1.04); Glucose 98 mg/dL (74-106); Potassium 3.9 mmol/L (3.5-5.1); SGOT/AST 22 U/L (14-36); SGPT/ALT 23 U/L (0-35); SODIUM 138 mmol/L (137-145); Total Protein 6.9 g/dL (6.3-8.2)
[2019-06-19] MEDS ORDERED: SUBLIMAZE 100 MCG/2 ML ONE (09:25)
[2019-06-19] MEDS ORDERED: DIPRIVAN 200 MG/20 ML IV ONE (09:25)
[2019-06-19] MEDS ORDERED: Zemuron 100 MG/10 ML ONE (09:25)
[2019-06-19] MEDS ORDERED: Quelicin Fliptop 200 MG/10 ML ONE (09:25)
[2019-06-19] MEDS ORDERED: TORAdol 30 mg Injection ONE (09:44)
[2019-06-19] MEDS ORDERED: Zofran 4 MG/2 ML VIAL ONE (09:44)
[2019-06-19] MEDS ORDERED: Decadron 4 MG INJ ONE (09:44)
[2019-06-19 11:46] VITALS: O2SAT 92
[2019-06-19 11:54] VITALS: BP 149/95; PULSE 96
--- NOTE | 2019-06-20 11:11 | OP ---
SURGERY DATE/TIME: 06/19/2019 0924 PREOPERATIVE DIAGNOSES: 1) Menorrhagia. 2) Enlarged uterus. POSTOPERATIVE DIAGNOSES: 1) Menorrhagia. 2) Enlarged uterus. 3) Uterine synechiae. 4) Narrow uterine cavity. PROCEDURE: Hysteroscopy, D&C with attempted ablation. SURGEON: Lexx Tarango D.O. CERTIFIED PHYSICIAN ASSISTANT: nuclear reactor technician. ANESTHESIA: General. ESTIMATED BLOOD LOSS: Minimal. COMPLICATIONS: None. INDICATIONS: The risks, benefits, indications and alternatives of the procedure were reviewed with the patient prior to the procedure. The patient understood the risk of infection, bleeding, bowel injury, bladder injury, ureteral injury, uterine perforation associated with the surgery and desires to have this surgery as a possible need to alleviate her current medical condition. DESCRIPTION OF PROCEDURE AND FINDINGS: At this point the patient is taken to the operating room, given general sedation, placed in dorsal lithotomy position, prepped and draped in the usual sterile fashion. A weighted speculum is then placed in the patient's vagina and the anterior lip of the cervix is grasped with a single tooth tenaculum. Endocervical dilators were advanced to the endocervical canal as a means to dilate the cervix. At this point a 5 mm hysteroscope is then placed into the endocervical canal where visualization revealed extensive adhesions where the uterus was sounded to approximately 10 cm. The hysteroscope due to the contracture and significant scarring there is minimal visualization of the uterine cavity. The hysteroscope was only advanced approximately 3 to 4 cm. From this point the MyoSure was then used to try to resect adhesions within the uterine cavity however was not achieved to its full effect secondary to lack of visualization. From this point the hysteroscope is then removed from the uterine cavity. At this point a curette was introduced into the fundus of the uterus where curettage was performed in all quadrants retrieving a mild to moderate amount of tissue. After curettage the Novasure was then introduced into the endocervical canal introduced approximately 3 to 4 cm. Where at this point an attempt was made at 4.5, 5.5 and 6.5 cm from the Novasure adjustment scale. However after engagement the machine would not turn on for an ablative time. From this point the Novasure was disengaged and removed. It was not used for an ablation. From this point after multiple attempts were made again the Novasure was removed. The patient was taken out of the dorsal lithotomy position and was taken out of anesthesia and was then taken to the recovery room in stable condition. All instruments and laps were accounted for x2.
== END 2019-06-19 12:10 | disposition home or self-care (01) ==
LOC: SDC 07:37
PROVIDERS: ATTEND Obstetrics & Gynecology
DX: N92.0 Excessive and frequent menstruation with regular cycle (principal); N85.2 Hypertrophy of uterus; N85.6 Intrauterine synechiae; I10 Essential (primary) hypertension; J45.909 Unspecified asthma, uncomplicated; Z79.899 Other long term (current) drug therapy
CPT/HCPCS: 36415; 58563; 80053; 84703; J0330; J1100; J1885; J2405; J2704; J3010

== ENCOUNTER 2020-10-27 15:01 | Emergency (ER) | payer MEDICARE ==
[2020-10-27] MEDS ORDERED: MORPHINE SULFATE 4 MG INJ IV ONE (15:19)
[2020-10-27] MEDS ORDERED: Zofran 4 MG/2 ML VIAL IV ONE (15:19)
[2020-10-27] MEDS ORDERED: Zofran 4 MG/2 ML VIAL ONE (15:20)
[2020-10-27] MEDS ORDERED: MORPHINE SULFATE 4 MG INJ ONE (15:20)
[2020-10-27 15:27] LABS: Absolute Neutrophil Ct (ANC) 7.91 (1.4-6.9); BASOPHIL % 0.3 % (0.0-0.4); Basophil (Absolute #) 0.04 (0-0.4); Eosinophil % 2.1 % (0.00-5.0); Eosinophil (Absolute #) 0.25 (0-0.5); Hemoglobin 10.8 gm/dl (12.0-16.0); Lymphocyte (Absolute #) 2.91 (1.0-4.6); Mean Cell Volume 86.2 fl (78-100); Mean Corpuscular Hemoglobin 26.6 pg (26-32); Mean Corpuscular Hgb Concent. 30.9 g/dl (32-36); Mean Platelet Volume 8.6 fl (7.5-11.0); Monocyte (Absolute #) 0.54 (0.0-1.3); Monocytes % 4.6 % (0.0-12.0); Platelet Count 355 K/mm3 (150-450); Red Blood Count 4.06 M/mm3 (4.1-5.4); Red Cell Distribution Width 14.8 % (11.5-14.0); White Blood Count 11.7 K/mm3 (4.0-10.5)
[2020-10-27 15:40] LABS: INR 1.14 (0.8-3.0); PROTIME 12.9 SECONDS (9.95-12.35)
[2020-10-27 15:54] LABS: ALBUMIN 3.8 g/dL (3.5-5.0); ALKALINE PHOSPHATASE 112 U/L (38-126); ANION GAP 12.4 MEQ/L (5-15); BLOOD UREA NITROGEN 13 mg/dL (7-17); CHLORIDE 103 mmol/L (98-107); Calcium 8.8 mg/dL (8.4-10.2); Carbon Dioxide 24 mmol/L (22-30); Creatinine 1 0.79 mg/dL (0.52-1.04); EST GLOMERULAR FILTRATION RATE > 60.0 ML/MIN; Glucose 121 mg/dL (74-106); NT PRO BNP 73.4 pg/mL (0-450); Potassium 3.6 mmol/L (3.5-5.1); SGOT/AST 23 U/L (14-36); SGPT/ALT 22 U/L (0-35); SODIUM 136 mmol/L (137-145); Total Protein 6.9 g/dL (6.3-8.2)
--- NOTE | 2020-10-27 16:45 | XRAY ---
Indication: Chest pain. Comparison: December 24, 2016. Portable apical lordotic chest again demonstrates normal heart, lungs, and bony thorax.
[2020-10-27 18:56] VITALS: PULSE 81
--- NOTE | 2020-10-27 19:09 | ERPHSYRPT ---
- History of Present Illness Historian: patient Patient Subjective Stated Complaint: Chest pain Triage Nursing Assessment: Patient ambulated back to ED and transferred self to bed. Patient A+O X3. Patient's skin pink, warm and dry. Patient states two hours ago she started having right sided chest pain constant burning pain that goes down right arm. Patient denies N/V. Physician History: 35 yo wf w R sided CP x2hr. Pain is 7/10, squeezing, and radiates to R axilla. P t states that she is dyspnic/diaphoretic/N wo vomiting. She developed the pain while driving. Nothing makes the pain better or worse. Pt smoked 1ppd until 5yrs ago and has a h/o HTN. Timing/Duration: other (2hrs) Activities at Onset: other (Driving) Quality: other (Squeezing) Location: other (R lateral chest) Chest Pain Radiation: arm (R axilla) Severity of Pain-Max: moderate Severity of Pain-Current: moderate Modifying Factors: Improves With: nothing Associated Symptoms: nausea, shortness of breath, diaphoresis, No vomiting, No palpitations, No heartburn, No abdominal pain, No cough, No hurts to breathe, No chills, No fever, No fatigue, No weakness, No swelling/lump in chest, No syncope, No rash, No headache, No dizziness, No edema, No back pain Prior Chest Pain/Cardiac Workup: no prior chest pain, no prior cardiac workup Nitro Today/Relief: no nitro taken today Aspirin Treatment Today: no aspirin today Allergies/Adverse Reactions: aspirin Allergy (Verified 10/27/20 15:32) ibuprofen Allergy (Verified 10/27/20 15:32) latex Allergy (Verified 10/27/20 15:32) tape Adverse Reaction (Uncoded 10/27/20 15:32) Home Medications: Duloxetine HCl [Cymbalta] 60 mg PO HS 03/26/19 [History] Gabapentin [Neurontin] 300 mg PO HS 03/26/19 [History] Losartan Potassium 50 mg [Cozaar 50 MG] 25 mg PO DAILY 03/26/19 [History] Omeprazole 20 mg PO DAILY 03/26/19 [History] Oxybutynin Chloride Xl 5 mg [Ditropan XL 5 MG] 5 mg PO BID 03/26/19 [History] PARoxetine HCL [Paroxetine HCl] 40 mg PO DAILY 03/26/19 [History] Ranitidine HCl 300 mg PO HS 03/26/19 [History] Topiramate 50 mg PO HS 03/26/19 [History] Hx Tetanus, Diphtheria Vaccination/Date Given: No Hx Influenza Vaccination/Date Given: No Hx Pneumococcal Vaccination/Date Given: No Immunizations Up to Date: Yes Travel Risk - International Travel Have you traveled outside of the country in past 3 weeks: No - Coronavirus Screening Are you exhibiting any of the following symptoms?: No Close contact with a COVID-19 positive Pt in past 14-21 Days: No - Vaccine Status Have you recieved a Covid-19 vaccination: Yes 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: [employer] - Vaccination Dates Date of 2cond Vaccination (if applicable): 07/03/2020 - Review of Systems Constitutional: No Symptoms Eyes: No Symptoms Ears, Nose, & Throat: No Symptoms Respiratory: No Symptoms, Dyspnea Cardiac: No Symptoms, Chest Pain Abdominal/Gastrointestinal: No Symptoms Genitourinary Symptoms: No Symptoms Musculoskeletal: No Symptoms Skin: No Symptoms Neurological: No Symptoms Psychological: No Symptoms Endocrine: No Symptoms Hematologic/Lymphatic: No Symptoms Immunological/Allergic: No Symptoms - Past Medical History Pertinent Past Medical History: Yes Neurological History: Migraines ENT History: No Pertinent History Cardiac History: No Pertinent History Respiratory History: Asthma, Bronchitis Endocrine Medical History: Adrenal Insufficiency Musculoskeletal History: Other GI Medical History: No Pertinent History History: Renal Disease Psycho-Social History: No Pertinent History Female Reproductive Disorders: Menstrual Problems Other Medical History: L foot bone spures, and spina bifidia, hydrocephelis of spine and shunt - Past Surgical History Past Surgical History: Yes (shunt, tethered spine x3,kid) Neuro Surgical History: No Pertinent History Cardiac: No Pertinent History Respiratory: No Pertinent History Gastrointestinal: Cholecystectomy Genitourinary: Kidney Surgery Musculoskeletal: No Pertinent History Female Surgical History: Section Other Surgical History: KIDNEY REMOVED LEFT SIDE, "tailbone untethered x2"shunt placed between shoulder blades. ureters reimplanted. - Social History Smoking Status: Former smoker How long have you smoked: 12 Exposure to second hand smoke: No Drug Use: none Patient Lives Alone: No Significant Family History: no pertinent family hx - Female History Hx Now: No - Nursing Vital Signs Nursing Vital Signs: Initial Vital Signs Temperature 98.0 F 10/27/20 15:10 Pulse Rate 80 10/27/20 15:10 Respiratory Rate 18 10/27/20 15:10 Blood Pressure 152/94 10/27/20 15:10 O2 Sat by Pulse Oximetry 99 10/27/20 15:10 Pain Scale Pain Intensity 2 - Physical Exam General Appearance: no apparent distress Eye Exam: PERRL/EOMI, eyes nml inspection Ears, Nose, Throat Exam: normal ENT inspection, TMs normal, pharynx normal, moist mucous membranes Neck Exam: normal inspection, non-tender, supple, full range of motion, No meningismus, No mass, No Brudzinski, No Kernig's Respiratory Exam: normal breath sounds, lungs clear, airway intact, No chest tenderness, No respiratory distress Cardiovascular Exam: regular rate/rhythm, normal heart sounds, normal peripheral pulses, No murmur Gastrointestinal/Abdomen Exam: soft, normal bowel sounds, No tenderness Back Exam: normal inspection, normal range of motion, No CVA tenderness Extremity Exam: normal inspection, normal range of motion Neurologic Exam: alert, oriented x 3, cooperative, 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 as tested, normal mood/affect Skin Exam: normal color, warm, dry, rash Lymphatic Exam: No adenopathy SpO2 Interpretation: normal SpO2: 96 O2 Delivery: Room Air - Course EKG Interpreted by Me: RATE (NSR/PACS/Normal QT-QTc/Low voltage/Flat T waves) - Radiology Exams Chest X-ray Interpretation: Interpreted by me (Nothing acute) Ordered Tests: Active Orders 24 hr Category Date Time Status Conductor Symphonic Orchestra STAT Care 10/27/20 15:17 Completed EKG-ER Only STAT Care 10/27/20 15:17 Completed IV Insertion STAT Care 10/27/20 15:17 Completed CHEST 1 VIEW (PORTABLE) Stat Exams 10/27/20 15:17 Completed CBC W DIFF Stat Lab 10/27/20 15:17 Completed CMP Stat Lab 10/27/20 15:20 Completed NT PRO BNP Stat Lab 10/27/20 15:20 Completed PROTIME WITH INR Stat Lab 10/27/20 15:20 Completed PTT Stat Lab 10/27/20 15:20 Completed TROPONIN Q3H Lab 10/27/20 15:20 Completed TROPONIN Q3H Lab 10/27/20 18:02 Completed Medication Summary Discontinued Medications Generic Name Dose Route Start Last Admin Trade Name Pedro Pablo PRN Reason Stop Dose Admin Morphine Sulfate 4 mg 10/27/20 15:19 10/27/20 15:21 Morphine Sulfate 4 Mg Inj IV 10/27/20 15:20 4 mg STAT ONE Administration Morphine Sulfate Confirm 10/27/20 15:20 Morphine Sulfate 4 Mg Inj Administered 10/27/20 15:21 Dose 4 mg .ROUTE .STK-MED ONE Ondansetron HCl 4 mg 10/27/20 15:19 10/27/20 15:21 Zofran 4 Mg/2 Ml Vial IV 10/27/20 15:20 4 mg STAT ONE Administration Ondansetron HCl Confirm 10/27/20 15:20 Zofran 4 Mg/2 Ml Vial Administered 10/27/20 15:21 Dose 4 mg .ROUTE .STK-MED ONE Lab/Rad Data: Laboratory Result Diagrams 10/27/20 15:17 10/27/20 15:20 Laboratory Results 10/27/20 10/27/20 10/27/20 Range/Units 18:02 15:20 15:20 WBC (4.0-10.5) K/mm3 RBC (4.1-5.4) M/mm3 Hgb (12.0-16.0) gm/dl Hct (35-47) % MCV (78-100) fl MCH (26-32) pg MCHC (32-36) g/dl RDW (11.5-14.0) % Plt Count (150-450) K/mm3 MPV (7.5-11.0) fl Gran % (36.0-66.0) % Eos # (Auto) (0-0.5) Absolute Lymphs (auto) (1.0-4.6) Absolute Monos (auto) (0.0-1.3) Lymphocytes % (24.0-44.0) % Monocytes % (0.0-12.0) % Eosinophils % (0.00-5.0) % Basophils % (0.0-0.4) % Absolute Granulocytes (1.4-6.9) Basophils # (0-0.4) PT 12.9 H (9.95-12.35) SECONDS INR 1.14 (0.8-3.0) APTT 34.0 (25.3-37.0) SECONDS Sodium (137-145) mmol/L Potassium (3.5-5.1) mmol/L Chloride (98-107) mmol/L Carbon Dioxide (22-30) mmol/L Anion Gap (5-15) MEQ/L BUN (7-17) mg/dL Creatinine (0.52-1.04) mg/dL Estimated GFR ML/MIN Glucose (74-106) mg/dL Calcium (8.4-10.2) mg/dL Total Bilirubin (0.2-1.3) mg/dL AST (14-36) U/L ALT (0-35) U/L Alkaline Phosphatase (38-126) U/L Troponin I < 0.012 < 0.012 (0.000-0.034) ng/mL NT-Pro-B Natriuret Pep (0-450) pg/mL Serum Total Protein (6.3-8.2) g/dL Albumin (3.5-5.0) g/dL 10/27/20 10/27/20 Range/Units 15:20 15:17 WBC 11.7 H (4.0-10.5) K/mm3 RBC 4.06 L (4.1-5.4) M/mm3 Hgb 10.8 L (12.0-16.0) gm/dl Hct 35.0 (35-47) % MCV 86.2 (78-100) fl MCH 26.6 (26-32) pg MCHC 30.9 L (32-36) g/dl RDW 14.8 H (11.5-14.0) % Plt Count 355 (150-450) K/mm3 MPV 8.6 (7.5-11.0) fl Gran % 68.0 H (36.0-66.0) % Eos # (Auto) 0.25 (0-0.5) Absolute Lymphs (auto) 2.91 (1.0-4.6) Absolute Monos (auto) 0.54 (0.0-1.3) Lymphocytes % 25.0 (24.0-44.0) % Monocytes % 4.6 (0.0-12.0) % Eosinophils % 2.1 (0.00-5.0) % Basophils % 0.3 (0.0-0.4) % Absolute Granulocytes 7.91 H (1.4-6.9) Basophils # 0.04 (0-0.4) PT (9.95-12.35) SECONDS INR (0.8-3.0) APTT (25.3-37.0) SECONDS Sodium 136 L (137-145) mmol/L Potassium 3.6 (3.5-5.1) mmol/L Chloride 103 (98-107) mmol/L Carbon Dioxide 24 (22-30) mmol/L Anion Gap 12.4 (5-15) MEQ/L BUN 13 (7-17) mg/dL Creatinine 0.79 (0.52-1.04) mg/dL Estimated GFR > 60.0 ML/MIN Glucose 121 H (74-106) mg/dL Calcium 8.8 (8.4-10.2) mg/dL Total Bilirubin 0.40 (0.2-1.3) mg/dL AST 23 (14-36) U/L ALT 22 (0-35) U/L Alkaline Phosphatase 112 (38-126) U/L Troponin I (0.000-0.034) ng/mL NT-Pro-B Natriuret Pep 73.4 (0-450) pg/mL Serum Total Protein 6.9 (6.3-8.2) g/dL Albumin 3.8 (3.5-5.0) g/dL - Progress Progress: improved Progress Note: 10/27/20 19:14 Pain improved w 4mg IV MSO4/4mg IV Zofran 10/27/20 22:56 Wells Criteria 1.3% chance of PE 10/27/20 22:58 PERC score 0/<2% chance of PE Counseled pt/family regarding: lab results, diagnosis, need for follow-up, rad results - Departure Departure Disposition: Home Clinical Impression: Chest pain Condition: Stable Critical Care Time: No Referrals: SANDRA NEWMAN [Primary Care Provider] - Instructions: Chest Pain (DC) Additional Instructions: Return to ER for increasing pain or temperature greater than 100.5
[2020-10-27 19:26] VITALS: BP 110/70
[2020-10-27 22:59] VITALS: O2SAT 96
== END 2020-10-27 19:29 | disposition home or self-care (01) ==
LOC: ED 15:01
DX: R07.9 Chest pain, unspecified (principal)
CPT/HCPCS: 36000; 36415; 71045; 80053; 83880; 84484; 85025; 85610; 85730; 93005; 93041; 96374; 96375; 99284; J2270; J2405

== ENCOUNTER 2021-03-31 11:36 | Emergency (ER) | payer MEDICARE ==
[2012-05-20 11:31] VITALS: BP 112/67
--- NOTE | 2021-03-31 12:03 | ERPHSYRPT ---
- History of Present Illness Time Seen by Provider: 03/31/21 11:50 Historian: patient Exam Limitations: no limitations Patient Subjective Stated Complaint: pt here for chest pain to right side of chest, sob, nausea, no vomiting, since last night, dry cough occ. she also st ates yesterday she was having trouble getting words out and "brain fog" Triage Nursing Assessment: pt alert, resp easy, skin w/d/p. face mask in place, chest clear, abd soft , pt speech clear Physician History: This is a morbidly obese 36-year-old white female patient of Dr. Jolley who was at the clinic today being evaluated for chest pain. The patient describes aphasia yesterday with numbness and tingling in the bilateral upper extremities. Today, her aphasia and numbness and tingling symptoms have completely resolved, however, she was having chest pain that is on the right side anteriorly mild pressure without radiation of her pain. Patient has a history of hypertension, depression, gastroesophageal reflux disease. She has a history of migraine headaches, asthma and bronchitis. She has received COVID-19 vaccination. Patient denies shortness of breath. She does not have a cough. She did not hit her head. She has never had this kind of symptoms of aphasia in the past. Timing/Duration: today Activities at Onset: none Quality: pressure Location: other (Right anterior chest wall) Chest Pain Radiation: no radiation Severity of Pain-Max: mild Severity of Pain-Current: mild Modifying Factors: Improves With: nothing Associated Symptoms: other (Patient feels as though she is in a mental fog at this time) Nitro Today/Relief: no nitro taken today Aspirin Treatment Today: no aspirin today (Patient is allergic to aspirin) Allergies/Adverse Reactions: aspirin Allergy (Verified 03/31/21 11:48) ibuprofen Allergy (Verified 03/31/21 11:48) latex Allergy (Verified 03/31/21 11:48) tape Adverse Reaction (Uncoded 03/31/21 11:48) Home Medications: Omeprazole 20 mg PO DAILY 03/26/19 [History] PARoxetine HCL [Paroxetine HCl] 40 mg PO DAILY 03/26/19 [History] Albuterol 8 gm Mdi Hfa [Ventolin Hfa MDI] 1 puff Q4-6HPRN PRN 03/31/21 [History] Fluticasone/Vilanterol [Breo Ellipta 200-25 Mcg INH] 1 puff DAILY 03/31/21 [History] Tiotropium Titus [Spiriva Respimat] 1 puff DAILY 03/31/21 [History] Hx Tetanus, Diphtheria Vaccination/Date Given: No Hx Influenza Vaccination/Date Given: No Hx Pneumococcal Vaccination/Date Given: No Immunizations Up to Date: Yes Travel Risk - International Travel Have you traveled outside of the country in past 3 weeks: No - Coronavirus Screening Are you exhibiting any of the following symptoms?: No Close contact with a COVID-19 positive Pt in past 14-21 Days: No - Vaccine Status Have you recieved a Covid-19 vaccination: Yes [employer]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 [employer]: [employer] - Vaccination Dates Date of 2cond Vaccination (if applicable): 07/2020 - Review of Systems Constitutional: No Symptoms Eyes: No Symptoms Ears, Nose, & Throat: No Symptoms Cardiac: Chest Pain Abdominal/Gastrointestinal: No Symptoms (Described as a mild pressure right anterior chest wall) Genitourinary Symptoms: No Symptoms Musculoskeletal: No Symptoms Skin: No Symptoms Neurological: Other Psychological: No Symptoms Endocrine: No Symptoms Hematologic/Lymphatic: No Symptoms Immunological/Allergic: No Symptoms All Other Systems: Reviewed and Negative - Past Medical History Pertinent Past Medical History: Yes Neurological History: Migraines ENT History: No Pertinent History Cardiac History: No Pertinent History Respiratory History: Asthma, Bronchitis Endocrine Medical History: Adrenal Insufficiency Musculoskeletal History: Other GI Medical History: No Pertinent History History: Renal Disease Psycho-Social History: No Pertinent History Female Reproductive Disorders: Menstrual Problems Other Medical History: L foot bone spures, and spina bifidia, hydrocephelis of spine and shunt - Past Surgical History Past Surgical History: Yes (shunt, tethered spine x3,kid) Neuro Surgical History: No Pertinent History Cardiac: No Pertinent History Respiratory: No Pertinent History Gastrointestinal: Cholecystectomy Genitourinary: Kidney Surgery Musculoskeletal: No Pertinent History Female Surgical History: Section Other Surgical History: KIDNEY REMOVED LEFT SIDE, "tailbone untethered x2"shunt placed between shoulder blades. ureters reimplanted. - Social History Smoking Status: Former smoker How long have you smoked: 12 Exposure to second hand smoke: No Drug Use: none Patient Lives Alone: No Significant Family History: no pertinent family hx - Female History Hx Last Menstrual Period: hyster Hx Now: No - Nursing Vital Signs Nursing Vital Signs: Initial Vital Signs Temperature 97.2 F 03/31/21 11:41 Pulse Rate 97 H 03/31/21 11:41 Respiratory Rate 16 03/31/21 11:41 Blood Pressure 120/85 03/31/21 11:41 O2 Sat by Pulse Oximetry 96 03/31/21 11:41 Pain Scale Pain Intensity 0 - Physical Exam General Appearance: no apparent distress, alert, anxiety, obese Eye Exam: PERRL/EOMI, eyes nml inspection Ears, Nose, Throat Exam: normal ENT inspection, moist mucous membranes Neck Exam: normal inspection, non-tender, supple, full range of motion Respiratory Exam: normal breath sounds, lungs clear, airway intact, No chest tenderness, No respiratory distress Cardiovascular Exam: regular rate/rhythm, normal heart sounds, normal peripheral pulses Gastrointestinal/Abdomen Exam: soft, normal bowel sounds, No tenderness Pelvic Exam: not done Rectal Exam: not done Back Exam: normal inspection, normal range of motion, No CVA tenderness, No vertebral tenderness Extremity Exam: normal inspection, normal range of motion, pelvis stable Neurologic Exam: alert, oriented x 3, cooperative, 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 When compared to EKG dated 10/27/2020, there are no changes. There is persistent atrial premature complexes.) Ordered Tests: Active Orders 24 hr Category Date Time Status Outpatient Receptionist STAT Care 03/31/21 11:56 Active EKG-ER Only STAT Care 03/31/21 11:56 Active IV Insertion STAT Care 03/31/21 11:56 Active Pulse Oximetry (ED) STAT Care 03/31/21 11:56 Active CHEST 1 VIEW (PORTABLE) Stat Exams 03/31/21 11:56 Completed CHEST WITH CONTRAST [CT] Stat Exams 03/31/21 12:50 Completed HEAD WITHOUT CONTRAST [CT] Stat Exams 03/31/21 11:55 Completed CBC W DIFF Stat Lab 03/31/21 12:13 Completed CMP Stat Lab 03/31/21 12:13 Completed D-DIMER QUANTITATIVE Stat Lab 03/31/21 12:13 Completed PROTIME WITH INR Stat Lab 03/31/21 12:13 Completed TROPONIN Q3H Lab 03/31/21 12:13 Completed TROPONIN Q3H Lab 03/31/21 15:00 Ordered TROPONIN Q3H Lab 03/31/21 18:00 Ordered TROPONIN Q3H Lab 03/31/21 21:00 Ordered TROPONIN Q3H Lab 04/01/21 00:00 Ordered Medication Summary Discontinued Medications Generic Name Dose Route Start Last Admin Trade Name Freq PRN Reason Stop Dose Admin Apixaban 2.5 mg 03/31/21 14:32 Apixaban 2.5 Mg Tablet PO 03/31/21 14:33 STAT ONE Lab/Rad Data: Laboratory Result Diagrams 03/31/21 12:13 03/31/21 12:13 Laboratory Results 03/31/21 03/31/21 03/31/21 Range/Units 12:13 12:13 12:13 WBC (4.0-10.5) K/mm3 RBC (4.1-5.4) M/mm3 Hgb (12.0-16.0) gm/dl Hct (35-47) % MCV (78-100) fl MCH (26-32) pg MCHC (32-36) g/dl RDW (11.5-14.0) % Plt Count (150-450) K/mm3 MPV (7.5-11.0) fl Gran % (36.0-66.0) % Eos # (Auto) (0-0.5) Absolute Lymphs (auto) (1.0-4.6) Absolute Monos (auto) (0.0-1.3) Lymphocytes % (24.0-44.0) % Monocytes % (0.0-12.0) % Eosinophils % (0.00-5.0) % Basophils % (0.0-0.4) % Absolute Granulocytes (1.4-6.9) Basophils # (0-0.4) PT 12.2 (9.4-12.5) SECONDS INR 1.03 (0.8-3.0) D-Dimer 957 H* (215-500) ng/mL Sodium 137 (137-145) mmol/L Potassium 4.0 (3.5-5.1) mmol/L Chloride 107 (98-107) mmol/L Carbon Dioxide 21 L (22-30) mmol/L Anion Gap 13.2 (5-15) MEQ/L BUN 13 (7-17) mg/dL Creatinine 0.63 (0.52-1.04) mg/dL Estimated GFR > 60.0 ML/MIN Glucose 101 (74-106) mg/dL Calcium 9.0 (8.4-10.2) mg/dL Total Bilirubin 0.60 (0.2-1.3) mg/dL AST 33 (14-36) U/L ALT 27 (0-35) U/L Alkaline Phosphatase 119 (38-126) U/L Troponin I < 0.012 (0.000-0.034) ng/mL Serum Total Protein 6.5 (6.3-8.2) g/dL Albumin 3.7 (3.5-5.0) g/dL Slides for Path Review 03/31/21 Range/Units 12:13 WBC 11.4 H (4.0-10.5) K/mm3 RBC 4.23 (4.1-5.4) M/mm3 Hgb 10.9 L (12.0-16.0) gm/dl Hct 36.3 (35-47) % MCV 85.8 (78-100) fl MCH 25.8 L (26-32) pg MCHC 30.0 L (32-36) g/dl RDW 15.6 H (11.5-14.0) % Plt Count 203 (150-450) K/mm3 MPV 10.2 (7.5-11.0) fl Gran % 68.4 H (36.0-66.0) % Eos # (Auto) 0.31 (0-0.5) Absolute Lymphs (auto) 2.62 (1.0-4.6) Absolute Monos (auto) 0.64 (0.0-1.3) Lymphocytes % 23.0 L (24.0-44.0) % Monocytes % 5.6 (0.0-12.0) % Eosinophils % 2.7 (0.00-5.0) % Basophils % 0.3 (0.0-0.4) % Absolute Granulocytes 7.81 H (1.4-6.9) Basophils # 0.03 (0-0.4) PT (9.4-12.5) SECONDS INR (0.8-3.0) D-Dimer (215-500) ng/mL Sodium (137-145) mmol/L Potassium (3.5-5.1) mmol/L Chloride (98-107) mmol/L Carbon Dioxide (22-30) mmol/L Anion Gap (5-15) MEQ/L BUN (7-17) mg/dL Creatinine (0.52-1.04) mg/dL Estimated GFR ML/MIN Glucose (74-106) mg/dL Calcium (8.4-10.2) mg/dL Total Bilirubin (0.2-1.3) mg/dL AST (14-36) U/L ALT (0-35) U/L Alkaline Phosphatase (38-126) U/L Troponin I (0.000-0.034) ng/mL Serum Total Protein (6.3-8.2) g/dL Albumin (3.5-5.0) g/dL Slides for Path Review YES - Progress Progress: improved, re-examined Air Movement: good Progress Note: 03/31/21 14:11 CT of the head shows a remote lacunar infarct of the left basal ganglia CAT scan of the chest with contrast shows no obvious pulmonary embolus. Chest x-ray shows no acute pulmonary process. 03/31/21 14:42 Medical decision making: I spoke with Dr. Jolley, the patient's primary care physician. He told me to start the patient on Eliquis 2.5 mg orally twice a day. The patient is to contact his office tomorrow to make arrange for follow- up appointment. In the event an appointment cannot be made soon, Dr. Jolley's office is going to make arrangements for follow-up appointment with one of his colleagues to perform a work-up as an outpatient including but not limited to carotid ultrasound and echocardiogram. I reviewed the above plan with the patient. She stated that she now recalls that she has had a couple of these similar episodes in the past. 03/31/21 14:45 Blood Culture(s) Obtained: No Antibiotics given: No Counseled pt/family regarding: lab results, diagnosis, need for follow-up, rad results - Departure Departure Disposition: Home Clinical Impression: TIA (transient ischemic attack), Chest pain Condition: Stable Critical Care Time: No Referrals: SANDRA JOLLEY [Primary Care Provider] - Follow up/PCP as directed Additional Instructions: Call Dr. Jolley's office tomorrow morning to make an appointment for follow-up and referral to neurology as indicated. Return to the emergency department if symptoms recur. Prescriptions: Apixaban [Eliquis 2.5 mg Tablet] 2.5 mg PO BID 12 Days #24 tablet
[2021-03-31 12:22] LABS: Absolute Neutrophil Ct (ANC) 7.81 (1.4-6.9); BASOPHIL % 0.3 % (0.0-0.4); Basophil (Absolute #) 0.03 (0-0.4); Eosinophil % 2.7 % (0.00-5.0); Eosinophil (Absolute #) 0.31 (0-0.5); Hematocrit 36.3 % (35-47); Hemoglobin 10.9 gm/dl (12.0-16.0); Lymphocyte (Absolute #) 2.62 (1.0-4.6); Mean Cell Volume 85.8 fl (78-100); Mean Corpuscular Hemoglobin 25.8 pg (26-32); Mean Platelet Volume 10.2 fl (7.5-11.0); Monocyte (Absolute #) 0.64 (0.0-1.3); Monocytes % 5.6 % (0.0-12.0); Neutrophil % 68.4 % (36.0-66.0); Platelet Count 203 K/mm3 (150-450); Red Blood Count 4.23 M/mm3 (4.1-5.4); Red Cell Distribution Width 15.6 % (11.5-14.0); White Blood Count 11.4 K/mm3 (4.0-10.5)
[2021-03-31 12:25] LABS: INR 1.03 (0.8-3.0); PROTIME 12.2 SECONDS (9.4-12.5)
[2021-03-31 12:32] LABS: ALBUMIN 3.7 g/dL (3.5-5.0); ALKALINE PHOSPHATASE 119 U/L (38-126); ANION GAP 13.2 MEQ/L (5-15); BLOOD UREA NITROGEN 13 mg/dL (7-17); CHLORIDE 107 mmol/L (98-107); Carbon Dioxide 21 mmol/L (22-30); Creatinine 1 0.63 mg/dL (0.52-1.04); EST GLOMERULAR FILTRATION RATE > 60.0 ML/MIN; Glucose 101 mg/dL (74-106); SGOT/AST 33 U/L (14-36); SGPT/ALT 27 U/L (0-35); SODIUM 137 mmol/L (137-145); Total Protein 6.5 g/dL (6.3-8.2)
--- NOTE | 2021-03-31 12:39 | XRAY ---
Indication: Chest pain. Comparison: October 27, 2020. Portable chest again demonstrates normal heart and lungs. Bony thorax intact. No new/acute abnormalities.
--- NOTE | 2021-03-31 13:02 | XRAY ---
Indication: Aphasia. Dizziness. Multiple contiguous axial images obtained through the head without contrast. Comparison: None 6mm remote lacunar infarct left basal ganglia. Otherwise normal appearing brain parenchyma, ventricles, and bony calvarium. Visualized paranasal sinuses and mastoid air cells are clear. Impression: Remote lacunar infarct left basal ganglia. Negative CT head without contrast exam.
--- NOTE | 2021-03-31 13:43 | XRAY ---
Indication: Chest pain. Elevated d-dimer. Multiple contiguous axial images obtained through the chest using 100 cc Isovue 370 contrast and PE protocol. Comparison: None There is adequate opacification of the pulmonary arteries to include the lobar and segmental branches. However patient body habitus and minimal respiration artifact limits evaluation of the more distal branches. No central pulmonary embolus. Heart not enlarged. Aorta is normal in course and caliber. Small calcified node anterior to the arch. No pathologic mediastinal/hilar lymphadenopathy. Lungs demonstrate small lingula calcified granuloma. No suspicious pulmonary mass, infiltrate, or effusion. Bony thorax intact with minimal degenerative changes throughout the spine. Limited upper abdomen demonstrates mild fatty liver, 13.5 cm splenomegaly, and cholecystectomy clips. Impression: 1. Pulmonary embolus evaluation limited due to patient body habitus and respiration artifact. No obvious pulmonary embolus. 2. Incidental fatty liver, splenomegaly, and old granulomatous disease. 3. Remaining CT chest with contrast exam is negative.
[2021-03-31 14:26] LABS: Slide Review 1 YES
[2021-03-31] MEDS ORDERED: ELIQUIS 2.5 MG TABLET PO ONE (14:32)
== END 2021-03-31 15:19 | disposition home or self-care (01) ==
LOC: ED 11:36
DX: G45.9 Transient cerebral ischemic attack, unspecified (principal); R07.9 Chest pain, unspecified
CPT/HCPCS: 36000; 36415; 70450; 71045; 71260; 80053; 84484; 85025; 85379; 85610; 93005; 93041; 94760; 99284; A9270-GY

== ENCOUNTER 2021-05-31 11:29 | Emergency (ER) | payer MEDICARE ==
[2021-05-31 11:47] VITALS: BP 138/88; PULSE 96; O2SAT 99
[2021-05-31] MEDS ORDERED: NEOSYNEPHRINE 0.5% NASAL SPRAY/DROPS ONE (11:54)
--- NOTE | 2021-05-31 12:22 | ERPHSYRPT ---
- History of Present Illness Time Seen by Provider: 05/31/21 11:32 Source: patient Exam Limitations: no limitations Patient Subjective Stated Complaint: Pt has had a nose bleed for 30 minutes Triage Nursing Assessment: Pt was brought to the ER by her sister, bret wnl, denies pain, bleeding has now stopped, hx of nose bleeds, hx of TIA and is on plavix, doesn't appear to be in any distress at this time Physician History: History of nosebleeds. Left nostril bleeding at this point time. No falls no other trauma. Patient states that she is on Plavix due to history of a stroke. Started spontaneously just prior to arrival. Otherwise asymptomatic. 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 Modifying factors/associated signs and symptoms: holding pressure Timing/Duration: today Severity: mild Associated Symptoms: denies symptoms Allergies/Adverse Reactions: aspirin Allergy (Verified 05/31/21 11:47) ibuprofen Allergy (Verified 05/31/21 11:47) latex Allergy (Verified 05/31/21 11:47) tape Adverse Reaction (Uncoded 05/31/21 11:47) Home Medications: Omeprazole 20 mg PO DAILY 03/26/19 [History] PARoxetine HCL [Paroxetine HCl] 40 mg PO DAILY 03/26/19 [History] Albuterol 8 gm Mdi Hfa [Ventolin Hfa MDI] 1 puff Q4-6HPRN PRN 03/31/21 [History] Fluticasone/Vilanterol [Breo Ellipta 200-25 Mcg INH] 1 puff DAILY 03/31/21 [History] Tiotropium [place] [Spiriva Respimat] 1 puff DAILY 03/31/21 [History] Clopidogrel Bisulfate 75 mg [PLAVIX 75 MG Tablet] 75 mg PO DAILY 05/31/21 [History] Triamterene/Hydrochlorothiazid [Maxzide 37.5 mg-25 mg Tablet] 1 each PO DAILY 05/31/21 [History] dilTIAZem HCl [Diltiazem 24Hr Cd] 180 mg PO DAILY 05/31/21 [History] Hx Tetanus, Diphtheria Vaccination/Date Given: No Hx Influenza Vaccination/Date Given: No Hx Pneumococcal Vaccination/Date Given: No Travel Risk - International Travel Have you traveled outside of the country in past 3 weeks: No - Coronavirus Screening Are you exhibiting any of the following symptoms?: No Close contact with a COVID-19 positive Pt in past 14-21 Days: No - Vaccine Status Have you recieved a Covid-19 vaccination: Yes 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 - Vaccination Dates Date of 2cond Vaccination (if applicable): 07/03/2020 - Review of Systems Constitutional: No Fever, No Chills Eyes: No Symptoms Ears, Nose, & Throat: No Symptoms, Other (nose bleed) Respiratory: No Cough, No Dyspnea Cardiac: No Chest Pain, No Edema, No Syncope Abdominal/Gastrointestinal: No Abdominal Pain, No Nausea, No Vomiting, No Diarrhea Genitourinary Symptoms: No Dysuria Musculoskeletal: No Back Pain, No Neck Pain Skin: No Rash Neurological: No Dizziness, No Focal Weakness, No Sensory Changes Psychological: No Symptoms Endocrine: No Symptoms All Other Systems: Reviewed and Negative - Past Medical History Pertinent Past Medical History: Yes Neurological History: Migraines, TIA ENT History: No Pertinent History Cardiac History: No Pertinent History Respiratory History: Asthma, Bronchitis Endocrine Medical History: Adrenal Insufficiency Musculoskeletal History: Other GI Medical History: No Pertinent History History: Renal Disease Psycho-Social History: No Pertinent History Female Reproductive Disorders: Menstrual Problems Other Medical History: L foot bone spures, and spina bifidia, hydrocephelis of spine and shunt - Past Surgical History Past Surgical History: Yes (shunt, tethered spine x3,kid) Neuro Surgical History: No Pertinent History Cardiac: No Pertinent History Respiratory: No Pertinent History Gastrointestinal: Cholecystectomy Genitourinary: Kidney Surgery Musculoskeletal: No Pertinent History Female Surgical History: Hysterectomy, Section Other Surgical History: KIDNEY REMOVED LEFT SIDE, "tailbone untethered x2"shunt placed between shoulder blades. ureters reimplanted. - Social History Smoking Status: Former smoker How long have you smoked: 12 Exposure to second hand smoke: No Drug Use: none Patient Lives Alone: No Significant Family History: no pertinent family hx - Female History Hx Now: No (hysterectomy) - Nursing Vital Signs Nursing Vital Signs: Initial Vital Signs Temperature 96.9 F 05/31/21 11:39 Pulse Rate 96 H 05/31/21 11:39 Blood Pressure 138/88 05/31/21 11:39 O2 Sat by Pulse Oximetry 99 05/31/21 11:39 Pain Scale Pain Intensity 0 - Physical Exam General Appearance: no apparent distress, alert Eye Exam: PERRL/EOMI, eyes nml inspection Ears, Nose, Throat Exam: normal ENT inspection, TMs normal, pharynx normal, moist mucous membranes, other (Left nostril demonstrates nose bleed. Anterior bleed. No blood in the posterior pharynx. No septal hematoma, signs of trau ma.) Neck Exam: normal inspection, non-tender, supple, full range of motion Respiratory Exam: normal breath sounds, lungs clear, No respiratory distress Cardiovascular Exam: regular rate/rhythm, normal heart sounds, normal peripheral pulses Gastrointestinal/Abdomen Exam: soft, normal bowel sounds, No tenderness, No mass Back Exam: normal inspection, normal range of motion, No CVA tenderness, No vertebral tenderness Extremity Exam: normal inspection, normal range of motion, pelvis stable Neurologic Exam: alert, oriented x 3, cooperative, normal mood/affect, nml cerebellar function, nml station & gait, sensation nml, No motor deficits Skin Exam: normal color, warm, dry, No rash Lymphatic Exam: No adenopathy SpO2: 99 Procedures - Additional Procedures Progress: PRE-procedure DIAGNOSIS: nose bleed POST-OP DIAGNOSIS: Same PROCEDURE: nasal packing Performing Physician: Cliev PROCEDURE: A timeout protocol was performed prior to initiating the procedure. The area was prepared and draped in the usual, sterile manner. The site was visualized with active oozing. A 4.5 cm rhino rocket was placed in the left nostril. Followup: The patient tolerated the procedure well without complications. Standard post-procedure care is explained and return precautions are given. Ordered Tests: Active Orders 24 hr Category Date Time Status POCT GLUCOSE Stat Lab 05/31/21 13:02 Completed Medication Summary Discontinued Medications Generic Name Dose Route Start Last Admin Trade Name Pedro Pablo PRN Reason Stop Dose Admin Phenylephrine HCl Confirm 05/31/21 11:54 Neosynephrine 0.5% Nasal [place]oxen/Drops Administered 05/31/21 11:55 Dose 15 ml .ROUTE .[facility] Lab/Rad Data: Laboratory Results 05/31/21 Range/Units 13:02 POC Glucometer 95 (74 to 106) mg/dL - Progress Progress: improved Progress Note: 05/31/21 15:41 Left nose demonstrated Oozing. It was packed. See procedure note for full details. No other signs of infection. No antibiotics at this point time. Patient will need close follow-up with PCP. Return here for any new or changing symptoms. Patient was observed for over 45 minutes. No further bleeding from either nostril. No posterior oropharynx bleeding. Will see patient in: ED, other Counseled pt/family regarding: need for follow-up - Departure Departure Disposition: Home Clinical Impression: Bleeding nose Condition: Stable Critical Care Time: No Referrals: SANDRA NEWMAN [Primary Care Provider] - Follow up/PCP as directed Instructions: Nosebleeds (DC)
[2021-06-02] MEDS ORDERED: NEOSYNEPHRINE 0.5% NASAL SPRAY/DROPS NS ONE (08:13)
== END 2021-05-31 13:26 | disposition home or self-care (01) ==
LOC: ED 11:29
DX: R04.0 Epistaxis (principal); Z79.01 Long term (current) use of anticoagulants; Z86.73 Personal history of transient ischemic attack (TIA), and cerebral infarction without residual deficits
CPT/HCPCS: 30901; 82947; 99283; A9270-GY

== ENCOUNTER 2022-07-05 12:46 | Emergency (ER) | payer MEDICARE ==
[2022-07-05] MEDS ORDERED: Sodium Chloride 0.9% 1000 ML 1,000 ML IV STA (13:18)
--- NOTE | 2022-07-05 13:24 | ERPHSYRPT ---
- History of Present Illness Time Seen by Provider: 07/05/22 13:00 Source: patient Exam Limitations: no limitations Patient Subjective Stated Complaint: Pt states "I have had diarrhea and nausea since tuesday and it is not getting any better. I feel like I cannot poop anym ore." Triage Nursing Assessment: Pt presented from [facility] with diarrhea and nausea. Pt alert and oriented X 3, skin pwd. Pt ambulates with an upright steady gait, able to speak in clear full sentences pt resting comfortably on bed with no pain. Physician History: Patient also complains of bilateral leg pain. 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 Patient was advised that if she ever had bilateral leg pain to have the shunt interrogated. Patient also has bilateral leg pain. Patient concerned that there may be an issue with her shunt. Patient was advised that the only way to interrogate the shunt would be via an MRI. Patient's neurosurgeon has since . Patient was assigned to a new neurosurgeon by Dr. Jolley. Patient does not know that surgeon's name and has never followed up with that surgeon. Timing/Duration: today Severity: moderate Modifying Factors: Improves With: nothing Associated Symptoms: denies symptoms Allergies/Adverse Reactions: aspirin Allergy (Verified 05/31/21 11:47) ibuprofen Allergy (Verified 05/31/21 11:47) latex Allergy (Verified 05/31/21 11:47) tape Adverse Reaction (Uncoded 05/31/21 11:47) Home Medications: Omeprazole 20 mg PO DAILY 03/26/19 [History] PARoxetine HCL [Paroxetine HCl] 40 mg PO DAILY 03/26/19 [History] Albuterol 8 gm Mdi Hfa [Ventolin Hfa MDI] 1 puff Q4-6HPRN PRN 03/31/21 [H istory] Fluticasone/Vilanterol [Breo Ellipta 200-25 Mcg INH] 1 puff DAILY 03/31/21 [History] Tiotropium [place] [Spiriva Respimat] 1 puff DAILY 03/31/21 [History] Clopidogrel Bisulfate [PLAVIX 75 MG Tablet] 75 mg PO DAILY 05/31/21 [History] Triamterene/Hydrochlorothiazid [Maxzide 37.5 mg-25 mg Tablet] 1 each PO DAILY 05/31/21 [History] dilTIAZem HCl [Diltiazem 24Hr Cd] 180 mg PO DAILY 05/31/21 [History] Hx Tetanus, Diphtheria Vaccination/Date Given: No Hx Influenza Vaccination/Date Given: No Hx Pneumococcal Vaccination/Date Given: No Immunizations Up to Date: Yes Travel Risk - International Travel Have you traveled outside of the country in past 3 weeks: No - Coronavirus Screening Are you exhibiting any of the following symptoms?: Yes Symptoms: Fever, Vomiting/Diarrhea Close contact with a COVID-19 positive Pt in past 14-21 Days: No - Vaccine Status Have you recieved a Covid-19 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 Patient has a customized shunt from her spine to peritoneum. Patient was advised that if she ever develop leg pain that the shunt needed to be interrogated via MRI.), No Back Pain, No Neck Pain Skin: No Symptoms, No Rash Neurological: No Symptoms, No Dizziness, No Focal Weakness, No Sensory Changes Psychological: No Symptoms Endocrine: No Symptoms Hematologic/Lymphatic: No Symptoms Immunological/Allergic: No Symptoms All Other Systems: Reviewed and Negative - Past Medical History Pertinent Past Medical History: Yes Neurological History: Migraines, TIA ENT History: No Pertinent History Cardiac History: No Pertinent History Respiratory History: Asthma, Bronchitis Endocrine Medical History: Adrenal Insufficiency Musculoskeletal History: Other GI Medical History: No Pertinent History History: Renal Disease Psycho-Social History: No Pertinent History Female Reproductive Disorders: Menstrual Problems Other Medical History: L foot bone spures, and spina bifidia, hydrocephelis of spine and shunt,. pt has right kidney only - Past Surgical History Past Surgical History: Yes (shunt, tethered spine x3,kid) Neuro Surgical History: No Pertinent History Cardiac: No Pertinent History Respiratory: No Pertinent History Gastrointestinal: Cholecystectomy Genitourinary: Kidney Surgery Musculoskeletal: No Pertinent History Female Surgical History: Hysterectomy, Section Other Surgical History: KIDNEY REMOVED LEFT SIDE, "tailbone untethered x2"shunt placed between shoulder blades. ureters reimplanted. - Social History Smoking Status: Former smoker How long have you smoked: 12 Exposure to second hand smoke: No Drug Use: none Patient Lives Alone: No Significant Family History: no pertinent family hx - Female History Hx Last Menstrual Period: hysterectomy Hx Now: No - Nursing Vital Signs Nursing Vital Signs: Initial Vital Signs Temperature 97.5 F 07/05/22 12:55 Pulse Rate 77 07/05/22 12:55 Respiratory Rate 22 07/05/22 12:55 Blood Pressure 128/87 07/05/22 12:55 O2 Sat by Pulse Oximetry 84 L 07/05/22 12:55 Pain Scale Pain Intensity 2 - Physical Exam General Appearance: no apparent distress, alert Eye Exam: PERRL/EOMI, eyes nml inspection Ears, Nose, Throat Exam: normal ENT inspection, TMs normal, pharynx normal, moist mucous membranes Neck Exam: normal inspection, non-tender, supple, full range of motion Respiratory Exam: normal breath sounds, lungs clear, No respiratory distress Cardiovascular Exam: regular rate/rhythm, normal heart sounds, normal peripheral pulses Gastrointestinal/Abdomen Exam: soft, normal bowel sounds, No tenderness, No mass Back Exam: normal inspection, normal range of motion, No CVA tenderness, No vertebral tenderness Extremity Exam: normal inspection, normal range of motion, pelvis stable Neurologic Exam: alert, oriented x 3, cooperative, normal mood/affect, nml cerebellar function, nml station & gait, sensation nml, No motor deficits Skin Exam: normal color, warm, dry, No rash Lymphatic Exam: No adenopathy SpO2 Interpretation: normal SpO2: 84 O2 Delivery: Room Air - Course Nursing assessment & vital signs reviewed: Yes EKG Interpreted by Me: RATE, Sinus Rhythm, NORMAL AXIS, NORMAL INTERVALS Ordered Tests: Active Orders 24 hr Category Date Time Status EKG-ER Only STAT Care 07/05/22 13:18 Completed IV Insertion STAT Care 07/05/22 13:18 Completed CBC W DIFF Stat Lab 07/05/22 13:06 Completed MAGNESIUM Stat Lab 07/05/22 13:50 Completed Medication Summary Discontinued Medications Generic Name Dose Route Start Last Admin Trade Name Freq PRN Reason Stop Dose Admin Sodium Chloride 1,000 mls @ 999 mls/hr 07/05/22 13:18 07/05/22 14:29 Sodium Chloride 0.9% 1000 Ml IV 07/05/22 14:18 Infused .Q1H1M STA Infusion Sodium Chloride Confirm 07/05/22 13:25 Sodium Chloride 0.9% 1000 Ml Administered 07/05/22 13:26 Dose 1,000 mls @ ud .ROUTE .[facility] Lab/Rad Data: Laboratory Result Diagrams 07/05/22 13:06 Laboratory Results 07/05/22 07/05/22 Range/Units 13:50 13:06 WBC 10.2 (4.0-10.5) x10^3/uL RBC 4.55 (4.1-5.4) x10^6/uL Hgb 13.0 (12.0-16.0) g/dL Hct 40.2 (35-47) % MCV 88.4 (78-100) fL MCH 28.6 (26-32) pg MCHC 32.3 (32-36) g/dL RDW 13.6 (11.5-14.0) % Plt Count 307 (150-450) x10^3/uL MPV 8.7 (7.5-11.0) fL Gran % 69.0 H (36.0-66.0) % Immature Gran % (Auto) 0.3 (0.00-0.4) % Nucleat RBC Rel Count 0.0 (0.00-0.1) % Eos # (Auto) 0.17 (0-0.5) x10^3/uL Immature Gran # (Auto) 0.03 (0.00-0.03) x10^3u/L Absolute Lymphs (auto) 2.27 (1.0-4.6) x10^3/uL Absolute Monos (auto) 0.66 (0.0-1.3) x10^3/uL Absolute Nucleated RBC 0.00 (0.00-0.01) x10^3u/L Lymphocytes % 22.2 L (24.0-44.0) % Monocytes % 6.5 (0.0-12.0) % Eosinophils % 1.7 (0.00-5.0) % Basophils % 0.3 (0.0-0.4) % Absolute Granulocytes 7.07 H (1.4-6.9) x10^3/uL Basophils # 0.03 (0-0.4) x10^3/uL Magnesium 2.0 (1.6-2.3) mg/dL - Progress Progress: improved Progress Note: Patient is a 37-year-old female presents emergency department for evaluation of diarrhea generalized weakness and lower extremity pain. Patient also complains of some chest pressure. Patient was referred to us from [facility] for further evaluation and treatment. [facility] ordered labs on her. A chemistry was ordered. We have a hard copy of the results. We ordered a CBC. Patient's complaints are acute. Her lower extremity pain has been progressively worse over the past week. Physical exam reveals tenderness to bilateral lower extremi ties. Physical exam otherwise negative. Complexity of patient complaint is moderate. Patient has a history of a spinal shunt which complicates current presentation. Laboratory work-up includes EKG CBC. Findings were used for medical decision making. Patient received normal saline for rehydration due to diarrhea. Magnesium level ordered. Magnesium was normal at 2.0. Because of patient's pain and spinal shunt we contacted neurosurgeon Dr. Chauhan who advised transfer. Patient agreed to transfer to for further evaluation and treatment. . Level of EM service provided was moderate. Complexity of problem addressed was moderate. Complexity of data reviewed and analyzed is moderate. Risk of complication and or risk morbidity/mortality of patient management is low. No critical care time. Patient served as an independent historian. Time spent in transfer is approximate 10 to 15 minutes. Discharge diagnosis is spinal shunt complication, diarrhea, generalized weakness chest pain and transferred in stable condition. Portions of this note were created with voice recognition technology. There may be grammatical, spelling, punctuation or sound alike errors 07/05/22 13:[address] Other Will see patient in: other (Dr. Chauhan transferred to .) Counseled pt/family regarding: lab results, diagnosis Medical Desision Making - Diagnostic Testing Diagnostic Testing: Diagnostic tests were ordered,analyzed, and reviewed by me and used in my medical decision making for this patient. Radiologic studies (if ordered) were read by me initially then discussed with the radiologist . - Departure Departure Disposition: Transfer Clinical Impression: Diarrhea, Generalized weakness, Chest pressure, Lower extremity pain Condition: Stable Critical Care Time: No Referrals: SANDRA JOLLEY [Primary Care Provider] - Follow up/PCP as directed
[2022-07-05] MEDS ORDERED: Sodium Chloride 0.9% 1000 ML 1,000 ML ONE (13:25)
[2022-07-05 13:49] LABS: Absolute Neutrophil Ct (ANC) 7.07 x10^3/uL (1.4-6.9); BASOPHIL % 0.3 % (0.0-0.4); Basophil (Absolute #) 0.03 x10^3/uL (0-0.4); Eosinophil % 1.7 % (0.00-5.0); Eosinophil (Absolute #) 0.17 x10^3/uL (0-0.5); Hematocrit 40.2 % (35-47); IMMATURE GRAN # 0.03 x10^3u/L (0.00-0.03); IMMATURE GRAN % 0.3 % (0.00-0.4); Lymphocyte (Absolute #) 2.27 x10^3/uL (1.0-4.6); Lymphocytes % 22.2 % (24.0-44.0); Mean Cell Volume 88.4 fL (78-100); Mean Corpuscular Hemoglobin 28.6 pg (26-32); Mean Corpuscular Hgb Concent. 32.3 g/dL (32-36); Mean Platelet Volume 8.7 fL (7.5-11.0); Monocyte (Absolute #) 0.66 x10^3/uL (0.0-1.3); Monocytes % 6.5 % (0.0-12.0); Platelet Count 307 x10^3/uL (150-450); Red Blood Count 4.55 x10^6/uL (4.1-5.4); Red Cell Distribution Width 13.6 % (11.5-14.0); White Blood Count 10.2 x10^3/uL (4.0-10.5)
[2022-07-05 15:22] VITALS: BP 128/87; PULSE 76
[2022-07-05 18:53] VITALS: O2SAT 84
== END 2022-07-05 15:27 | disposition short-term general hospital (02) ==
LOC: ED 12:46
DX: R19.7 Diarrhea, unspecified (principal); R53.1 Weakness; R07.9 Chest pain, unspecified; M79.604 Pain in right leg; M79.605 Pain in left leg; Q05.4 Unspecified spina bifida with hydrocephalus; Z98.2 Presence of cerebrospinal fluid drainage device; Z79.02 Long term (current) use of antithrombotics/antiplatelets; Z79.899 Other long term (current) drug therapy
CPT/HCPCS: 36000; 36415; 83735; 85025; 93005; 96360; 99285

== ENCOUNTER 2023-03-18 20:44 | Emergency (ER) | payer MEDICARE ==
--- NOTE | 2023-03-18 20:46 | ERPHSYRPT ---
- History of Present Illness Time Seen by Provider: 03/18/23 20:46 Source: patient Exam Limitations: no limitations Physician History: This is an obese 38-year-old white female patient Dr. Jolley who has a history of hypertension and was working at [employer] when she felt mildly short of breath, mild left anterior chest pain. Paramedics were also at dysfunction and they took her blood pressure and said that her systolic blood pressure was greater than 100 and she became anxious and decided to come to the emergency department by private vehicle. Patient has a history of hypertension, asthma, TIAs, gastroesophageal reflux disease, diabetes, renal disease and coronary artery disease. Her pain is in the left anterior chest without radiation. It is an ache. Her blood pressure reading upon entrance into the emergency room is 136/90. Her heart rate is 88-90. Her room air oxygen saturation level is 98 to 99%. Timing/Duration: today Severity: mild Associated Symptoms: shortness of breath (Mild), chest pain (Mild as described above) Allergies/Adverse Reactions: ibuprofen Allergy (Verified 03/18/23 20:55) latex Allergy (Verified 03/18/23 20:55) tape Adverse Reaction (Uncoded 05/31/21 11:47) Home Medications: Omeprazole 20 mg PO DAILY 03/26/19 [History] PARoxetine HCL [Paroxetine HCl] 40 mg PO DAILY 03/26/19 [History] Albuterol 8 gm Mdi Hfa [Ventolin Hfa MDI] 1 puff IH Q4-6HPRN PRN 03/31/21 [History] Fluticasone/Vilanterol [Breo Ellipta 200-25 Mcg INH] 1 puff IH DAILY 03/31/21 [History] Tiotropium Sinclair [Spiriva Respimat] 1 puff IH DAILY 03/31/21 [History] dilTIAZem HCl [Diltiazem 24Hr Cd] 180 mg PO DAILY 05/31/21 [History] Aspirin 81 gm Chew [Baby Aspirin 81 mg Chew] 81 mg PO DAILY 02/19/23 [History] Semaglutide [Ozempic] 2 mg SQ UD 02/19/23 [History] armodafiniL [Nuvigil] 200 mg PO DAILY 02/19/23 [History] Potassium Chloride Tab* [Klor Con] 10 meq PO TID 03/18/23 [History] Hx Tetanus, Diphtheria Vaccination/Date Given: No Hx Influenza Vaccination/Date Given: No Hx Pneumococcal Vaccination/Date Given: No Travel Risk - International Travel Have you traveled outside of the country in past 3 weeks: No - Coronavirus Screening Are you exhibiting any of the following symptoms?: No Close contact with a COVID-19 positive Pt in past 14-21 Days: No - Vaccine Status Have you recieved a Covid-19 vaccination: Yes 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 Station Attendant: Moderna - Vaccination Dates Date of 2cond Vaccination (if applicable): 07/03/2020 - Review of Systems Constitutional: No Symptoms Eyes: No Symptoms Ears, Nose, & Throat: No Symptoms Respiratory: Dyspnea Cardiac: Chest Pain Abdominal/Gastrointestinal: No Symptoms Genitourinary Symptoms: No Symptoms Musculoskeletal: No Symptoms Skin: No Symptoms Neurological: No Symptoms Psychological: No Symptoms Endocrine: No Symptoms Hematologic/Lymphatic: No Symptoms Immunological/Allergic: No Symptoms All Other Systems: Reviewed and Negative - Past Medical History Pertinent Past Medical History: Yes Neurological History: Migraines, TIA ENT History: No Pertinent History Cardiac History: Coronary Artery Disease, Other Respiratory History: Asthma, Bronchitis Endocrine Medical History: Adrenal Insufficiency Musculoskeletal History: Other GI Medical History: No Pertinent History History: Renal Disease Psycho-Social History: No Pertinent History Female Reproductive Disorders: Menstrual Problems Other Medical History: L foot bone spures, and spina bifidia, hydrocephelis of spine and shunt,. pt has right kidney only - Past Surgical History Past Surgical History: Yes (shunt, tethered spine x3,kid) Neuro Surgical History: No Pertinent History Cardiac: Other Respiratory: No Pertinent History Gastrointestinal: Cholecystectomy Genitourinary: Kidney Surgery Musculoskeletal: No Pertinent History Female Surgical History: Hysterectomy, Section Other Surgical History: KIDNEY REMOVED LEFT SIDE, "tailbone untethered x2"shunt placed between shoulder blades. ureters reimplanted.surgery on heart valve - Social History Smoking Status: Former smoker How long have you smoked: 12 Exposure to second hand smoke: No Drug Use: none Patient Lives Alone: No Significant Family History: no pertinent family hx - Nursing Vital Signs Nursing Vital Signs: Initial Vital Signs Temperature 97.0 F 03/18/23 21:02 Pulse Rate 88 03/18/23 21:02 Respiratory Rate 24 03/18/23 21:02 Blood Pressure 142/84 03/18/23 21:02 O2 Sat by Pulse Oximetry 98 03/18/23 21:02 Pain Scale Pain Intensity 5 - Physical Exam General Appearance: no apparent distress, alert, anxiety, obese Eye Exam: PERRL/EOMI, eyes nml inspection Ears, Nose, Throat Exam: normal ENT inspection, moist mucous membranes Neck Exam: normal inspection, non-tender, supple, full range of motion Respiratory Exam: normal breath sounds, lungs clear, airway intact, No chest tenderness, No respiratory distress Cardiovascular Exam: regular rate/rhythm, normal heart sounds, normal peripheral pulses Gastrointestinal/Abdomen Exam: soft, normal bowel sounds, No tenderness Pelvic Exam: not done Rectal Exam: not done Back Exam: normal inspection, normal range of motion, vertebral tenderness, No CVA tenderness Extremity Exam: normal inspection, normal range of motion, pelvis stable Neurologic Exam: alert, oriented x 3, cooperative, scientific affairs manager II-XII nml as tested, normal mood/affect, nml cerebellar function, nml station & gait, sensation nml Skin Exam: normal color, warm, dry Lymphatic Exam: adenopathy SpO2 Interpretation: normal O2 Delivery: Room Air - Course Nursing assessment & vital signs reviewed: Yes EKG Interpreted by Me: RATE (71), Sinus Rhythm, NORMAL AXIS, NORMAL INTERVALS, NORMAL QRS, Other (No acute ischemic changes on today's twelve-lead EKG.) Ordered Tests: Active Orders 24 hr Category Date Time Status Air Sampler STAT Care 03/18/23 21:02 Active EKG-ER Only STAT Care 03/18/23 21:01 Active IV Insertion STAT Care 03/18/23 21:01 Active Pulse Oximetry (ED) STAT Care 03/18/23 21:01 Active Telemetry q4h Care 03/18/23 21:45 Active CHEST 1 VIEW (PORTABLE) Stat Exams 03/18/23 21:02 Completed CBC W DIFF Stat Lab 03/18/23 21:00 Completed CMP Stat Lab 03/18/23 21:00 Completed MAGNESIUM Stat Lab 03/18/23 21:00 Completed NT PRO BNPII Stat Lab 03/18/23 21:00 Completed TROPONIN Q4H Lab 03/18/23 21:00 Completed TROPONIN Q4H Lab 03/19/23 01:15 Ordered TROPONIN Q4H Lab 03/19/23 05:15 Ordered Medication Summary Generic Name Dose Route Start Last Admin Trade Name Freq PRN Reason Stop Dose Admin Potassium Chloride 20 meq in 100 mls @ 50 mls/hr 03/18/23 21:44 03/18/23 21:56 Potassium Chloride 20 Meq In Water 100ml IV 03/18/23 23:43 50 mls/hr STAT ONE Administration Sodium Chloride 500 mls @ 50 mls/hr 03/18/23 22:00 03/18/23 21:56 Sodium Chloride 0.9% 500 Ml IV 04/17/23 21:59 50 mls/hr .Q10H ANTOINE Administration Discontinued Medications Generic Name Dose Route Start Last Admin Trade Name Pedro Pablo PRN Reason Stop Dose Admin Potassium Chloride Confirm 03/18/23 21:52 Potassium Chloride 20 Meq In Water 100ml Administered 03/18/23 21:53 Dose 100 mls @ ud IV .STK-MED ONE Potassium Chloride 40 meq 03/18/23 21:44 03/18/23 21:56 Potassium Chloride Tab 10 Meq Tab PO 03/18/23 21:45 40 meq STAT ONE Administration Potassium Chloride Confirm 03/18/23 21:52 Potassium Chloride Tab 10 Meq Tab Administered 03/18/23 21:53 Dose 40 meq PO .STK-MED ONE Lab/Rad Data: Laboratory Result Diagrams 03/18/23 21:00 03/18/23 21:00 Laboratory Results 03/18/23 03/18/23 03/18/23 Range/Units 21:00 21:00 21:00 WBC (4.0-10.5) x10^3/uL RBC (4.1-5.4) x10^6/uL Hgb (12.0-16.0) g/dL Hct (35-47) % MCV (78-100) fL MCH (26-32) pg MCHC (32-36) g/dL RDW (11.5-14.0) % Plt Count (150-450) x10^3/uL MPV (7.5-11.0) fL Gran % (36.0-66.0) % Immature Gran % (Auto) (0.00-0.4) % Nucleat RBC Rel Count (0.00-0.1) % Eos # (Auto) (0-0.5) x10^3/uL Immature Gran # (Auto) (0.00-0.03) x10^3u/L Absolute Lymphs (auto) (1.0-4.6) x10^3/uL Absolute Monos (auto) (0.0-1.3) x10^3/uL Absolute Nucleated RBC (0.00-0.01) x10^3u/L Lymphocytes % (24.0-44.0) % Monocytes % (0.0-12.0) % Eosinophils % (0.00-5.0) % Basophils % (0.0-0.4) % Absolute Granulocytes (1.4-6.9) x10^3/uL Basophils # (0-0.4) x10^3/uL Sodium 140 (137-145) mmol/L Potassium 3.0 L* (3.5-5.1) mmol/L Chloride 105 (98-107) mmol/L Carbon Dioxide 23 (22-30) mmol/L Anion Gap 14.0 (5-15) MEQ/L BUN 11 (7-17) mg/dL Creatinine 1.18 H (0.52-1.04) mg/dL Estimated GFR 54.2 ML/MIN Glucose 102 (74-106) mg/dL Calcium 9.6 (8.4-10.2) mg/dL Magnesium 1.7 (1.6-2.3) mg/dL Total Bilirubin 0.70 (0.2-1.3) mg/dL AST 29 (14-36) U/L ALT 27 (0-35) U/L Alkaline Phosphatase 132 H (38-126) U/L Troponin I < 0.012 (0.000-0.034) ng/mL NT-Pro-B Natriuret Pep 207 (<300) pg/mL Serum Total Protein 7.8 (6.3-8.2) g/dL Albumin 4.5 (3.5-5.0) g/dL 03/18/23 Range/Units 21:00 WBC 14.7 H (4.0-10.5) x10^3/uL RBC 4.54 (4.1-5.4) x10^6/uL Hgb 13.5 (12.0-16.0) g/dL Hct 41.1 (35-47) % MCV 90.5 (78-100) fL MCH 29.7 (26-32) pg MCHC 32.8 (32-36) g/dL RDW 13.4 (11.5-14.0) % Plt Count 431 (150-450) x10^3/uL MPV 8.9 (7.5-11.0) fL Gran % 67.9 H (36.0-66.0) % Immature Gran % (Auto) 0.5 H (0.00-0.4) % Nucleat RBC Rel Count 0.0 (0.00-0.1) % Eos # (Auto) 0.17 (0-0.5) x10^3/uL Immature Gran # (Auto) 0.07 H (0.00-0.03) x10^3u/L Absolute Lymphs (auto) 3.64 (1.0-4.6) x10^3/uL Absolute Monos (auto) 0.75 (0.0-1.3) x10^3/uL Absolute Nucleated RBC 0.00 (0.00-0.01) x10^3u/L Lymphocytes % 24.8 (24.0-44.0) % Monocytes % 5.1 (0.0-12.0) % Eosinophils % 1.2 (0.00-5.0) % Basophils % 0.5 (0.0-0.4) % Absolute Granulocytes 9.94 H (1.4-6.9) x10^3/uL Basophils # 0.08 (0-0.4) x10^3/uL Sodium (137-145) mmol/L Potassium (3.5-5.1) mmol/L Chloride (98-107) mmol/L Carbon Dioxide (22-30) mmol/L Anion Gap (5-15) MEQ/L BUN (7-17) mg/dL Creatinine (0.52-1.04) mg/dL Estimated GFR ML/MIN Glucose (74-106) mg/dL Calcium (8.4-10.2) mg/dL Magnesium (1.6-2.3) mg/dL Total Bilirubin (0.2-1.3) mg/dL AST (14-36) U/L ALT (0-35) U/L Alkaline Phosphatase (38-126) U/L Troponin I (0.000-0.034) ng/mL NT-Pro-B Natriuret Pep (<300) pg/mL Serum Total Protein (6.3-8.2) g/dL Albumin (3.5-5.0) g/dL - Progress Progress: improved, re-examined Progress Note: 03/18/23 21:07 This patient's medical issue is 1 of moderate complexity. Level complexity in the work-up performed is based on review of the patient's past medical history, review the patient's medication list, review the patient's drug allergy list, hi story of present illness and physical findings on examination. The work-up includes placement of intravenous line, twelve-lead EKG, BNP, troponin level, CBC, CMP, chest x-ray. 03/18/23 23:02 I reviewed and interpreted the laboratory results in this patient. She has mild hypokalemia. We will provide her with a single K rider intravenously and 40 mEq of potassium chloride oral tablets here in the emergency department. I had reviewed the chest x-ray but had question of some possible significant findings on it. Therefore I sent the x-ray to nighttime radiologist for final read. The final impression states that there are no acute cardiopulmonary processes. Counseled pt/family regarding: lab results, diagnosis, need for follow-up, rad results Medical Desision Making - Independent Historian Additional History obtained from: Spouse - Diagnostic Testing Diagnostic test were ordered, analyzed, and reviewed by me: Yes Radiological Interpretation: Interpreted by me, Reviewed by me, Teleradiologist Report - Risk of complications The pt has a mod risk of morbidity or mortality based on: Need for prescription drug management - Departure Departure Disposition: Home Clinical Impression: Hypokalemia, Leukocytosis Condition: Stable Critical Care Time: No Referrals: SANDRA JOLLEY [Primary Care Provider] - Follow up/PCP as directed Additional Instructions: Drink plenty of fluids. Take your antibiotics as prescribed. Take your potassium tablets 10 mEq 3 times a day over the weekend. Follow-up in [facility] lab to have your blood drawn to recheck your potassium level. Contact your primary care physician's office before noon on 03/21/2023 in order to obtain your potassium level results and to make a follow-up appointment for further evaluation management Prescriptions: Levofloxacin [Levaquin 500 MG Tablet] 500 mg PO DAILY #7 tablet
[2023-03-18 21:11] LABS: Absolute Neutrophil Ct (ANC) 9.94 x10^3/uL (1.4-6.9); BASOPHIL % 0.5 % (0.0-0.4); Basophil (Absolute #) 0.08 x10^3/uL (0-0.4); Eosinophil % 1.2 % (0.00-5.0); Eosinophil (Absolute #) 0.17 x10^3/uL (0-0.5); Hematocrit 41.1 % (35-47); Hemoglobin 13.5 g/dL (12.0-16.0); IMMATURE GRAN # 0.07 x10^3u/L (0.00-0.03); IMMATURE GRAN % 0.5 % (0.00-0.4); Lymphocyte (Absolute #) 3.64 x10^3/uL (1.0-4.6); Lymphocytes % 24.8 % (24.0-44.0); Mean Cell Volume 90.5 fL (78-100); Mean Corpuscular Hemoglobin 29.7 pg (26-32); Mean Corpuscular Hgb Concent. 32.8 g/dL (32-36); Mean Platelet Volume 8.9 fL (7.5-11.0); Monocyte (Absolute #) 0.75 x10^3/uL (0.0-1.3); Monocytes % 5.1 % (0.0-12.0); Neutrophil % 67.9 % (36.0-66.0); Platelet Count 431 x10^3/uL (150-450); Red Blood Count 4.54 x10^6/uL (4.1-5.4); Red Cell Distribution Width 13.4 % (11.5-14.0); White Blood Count 14.7 x10^3/uL (4.0-10.5)
[2023-03-18 21:18] VITALS: TEMP 97
[2023-03-18 21:25] LABS: ALBUMIN 4.5 g/dL (3.5-5.0); BILIRUBIN,TOTAL 0.7 mg/dL (0.2-1.3); Calcium 9.6 mg/dL (8.4-10.2); Creatinine 1 1.18 mg/dL (0.52-1.04); EST GLOMERULAR FILTRATION RATE 54.2 ML/MIN; MAGNESIUM 1.7 mg/dL (1.6-2.3); Total Protein 7.8 g/dL (6.3-8.2)
[2023-03-18] MEDS ORDERED: POTASSIUM CHLORIDE 20 mEq IN WATER 100ML 20 MEQ/100 ML BAG IV ONE (21:44)
[2023-03-18] MEDS ORDERED: Klor Con PO ONE ×2 (21:44→21:52)
[2023-03-18] MEDS ORDERED: Sodium Chloride 0.9% 500 ML 500 ML IV ONE (21:52)
[2023-03-18] MEDS ORDERED: POTASSIUM CHLORIDE 20 mEq IN WATER 100ML 100 ML IV ONE (21:52)
[2023-03-18] MEDS ORDERED: Sodium Chloride 0.9% 500 ML 500 ML IV SCH (22:00)
--- NOTE | 2023-03-18 22:51 | XRAY ---
CLINICAL HISTORY:SOB COMPARISON:None. TECHNIQUE:X-ray examination of the chest is performed in frontal 1 view. FINDINGS: Cardiac size is within normal limits. Normal hilar shadows. No air space shadowing in either lung. Haziness seen projecting in both lower lung zones from soft tissue breast shadowing. Cardiophrenic angles are clear. Visualized bones are unremarkable. IMPRESSION: No acute cardiopulmonary abnormality was detected. Electronically Signed by: Nayan Robledo MD. (03/18/2023 21:50:18 DEBATE DIRECTOR)
[2023-03-18] MEDS ORDERED: Levofloxacin 500 MG Tablet PO ONE (23:07)
[2023-03-18 23:22] VITALS: RESP 20; O2SAT 99
[2023-03-18] MEDS ORDERED: Levofloxacin 500 MG Tablet ONE (23:27)
[2023-03-19 00:08] VITALS: BP 115/70; PULSE 71
== END 2023-03-19 00:15 | disposition home or self-care (01) ==
LOC: ED 20:44
DX: E87.6 Hypokalemia (principal); D72.829 Elevated white blood cell count, unspecified; R07.9 Chest pain, unspecified; R06.02 Shortness of breath; I10 Essential (primary) hypertension; E11.9 Type 2 diabetes mellitus without complications; Z79.85 Long-term (current) use of injectable non-insulin antidiabetic drugs; Z79.899 Other long term (current) drug therapy
CPT/HCPCS: 36000; 36415; 71045; 80053; 83735; 83880; 84484; 85025; 93005; 93041; 94760; 96360; 96361; 96365; 99284; J3480; A9270-GY

== ENCOUNTER 2023-04-15 17:46 | Emergency (ER) | payer MEDICARE ==
[2023-04-15 17:58] VITALS: TEMP 98.2
--- NOTE | 2023-04-15 19:02 | ERPHSYRPT ---
- History of Present Illness Time Seen by Provider: 04/15/23 18:03 Source: patient, family Exam Limitations: no limitations Patient Subjective Stated Complaint: "I was at [facility] this morning and tested positive for Covid and they gave me some medicine but I'm still feeling bad". Triage Nursing Assessment: Pt presents to ER by ambulance for complaints of shortness of breath and chest pains r/t Covid. Was dx Covid+ today at the clinic. Pt is alert and oriented x 3. Skin is pink, warm, and dry. Respirations are easy but pt states feels short of breath. Rates pain 6/10 scale in middle of chest. Pt denies nausea/vomiting/diarrhea. States has had dry cough since yesterday. Complains of body aches and chills. 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 Physician History: pT HAD COUGH X 2 DAYS, saw [facility] and found to be Covid + started Z naveen also, had syncopal eppisode and smart watch recorded O 2 sat of 60s but HR 70s at that time. All found to be OK when EMS arrived on seen and O 2 high 90s here in ER without O 2. Pt reports loss bladder control during LOC. No seizure Hx and no prior episodes reported. Hx of POA closed and TIAs Tx with ASA but no TIA symptoms today. Normal Neuro exam. Has Hx low K assoc with CP and had similar CP today previously. Hx states some type of cardiac hx - I am taking over this case at change of shift from Dr. Pham after discussion of presentation and pending tests. Hx confirmed independent source from EMS. Disccused risk/benefits of testing with pt and she wishes to proceed. with CXR, D DIMer, CBC, EKG, Enzymes, Other swabs - flu Strep, RSV, Orthstatics, Will rehydrate, and CMP, and give steroids as well. Pt agrees and has the capacity to make these choices. Orders placed. Results discussed Timing/Duration: today, day(s) Cough Quality/Degree: productive cough Possible Cause: no prior episodes Associated Symptoms: cough, dizziness, lightheadedness Allergies/Adverse Reactions: latex Allergy (Verified 04/15/23 17:58) ibuprofen Adverse Reaction (Verified 04/15/23 17:58) don't take due to kidney issue tape Adverse Reaction (Uncoded 04/15/23 17:58) Home Medications: Omeprazole 20 mg PO DAILY 03/26/19 [History] PARoxetine HCL [Paroxetine HCl] 40 mg PO DAILY 03/26/19 [History] Albuterol 8 gm Mdi Hfa [Ventolin Hfa MDI] 1 puff IH Q4-6HPRN PRN 03/31/21 [History] Fluticasone/Vilanterol [Breo Ellipta 200-25 Mcg INH] 1 puff IH DAILY 03/31/21 [History] Tiotropium [place] [Spiriva Respimat] 1 puff IH DAILY 03/31/21 [History] dilTIAZem HCl [Diltiazem 24Hr Cd] 180 mg PO DAILY 05/31/21 [History] Aspirin 81 gm Chew [Baby Aspirin 81 mg Chew] 81 mg PO DAILY 02/19/23 [History] Semaglutide [Ozempic] 2 mg SQ UD 02/19/23 [History] Potassium Chloride Tab* [Klor Con] 10 meq PO TID 03/18/23 [History] Azithromycin 250 mg [Zithromax 250 MG TABLET] 1 tab PO ZPACK 04/15/23 [History] Hx Tetanus, Diphtheria Vaccination/Date Given: No Hx Influenza Vaccination/Date Given: No Hx Pneumococcal Vaccination/Date Given: No Travel Risk - International Travel Have you traveled outside of the country in past 3 weeks: No - Coronavirus Screening Are you exhibiting any of the following symptoms?: Yes Symptoms: Cough: New Onset, Shortness of Breath Close contact with a COVID-19 positive Pt in past 14-21 Days: Yes - Vaccine Status Have you recieved a Covid-19 vaccination: Yes [employer]: Moderna - Vaccination Dates Date of 2cond Vaccination (if applicable): 07/03/2020 - Review of Systems Constitutional: No Fever, No Chills Eyes: No Symptoms Ears, Nose, & Throat: No Symptoms Respiratory: Cough, Dyspnea Cardiac: Chest Pain, Syncope, No Edema Abdominal/Gastrointestinal: No Abdominal Pain, No Nausea, No Vomiting, No Diarrhea Genitourinary Symptoms: No Dysuria Musculoskeletal: No Back Pain, No Neck Pain Skin: No Rash Neurological: Dizziness, No Focal Weakness, No Sensory Changes Psychological: No Symptoms Endocrine: No Symptoms Hematologic/Lymphatic: No Symptoms Immunological/Allergic: No Symptoms All Other Systems: Reviewed and Negative - Past Medical History Pertinent Past Medical History: Yes Neurological History: Migraines, TIA ENT History: No Pertinent History Cardiac History: Coronary Artery Disease, Other Respiratory History: Asthma, Bronchitis Endocrine Medical History: Adrenal Insufficiency Musculoskeletal History: Other GI Medical History: No Pertinent History History: Renal Disease Psycho-Social History: Anxiety, Bipolar Female Reproductive Disorders: Menstrual Problems Other Medical History: L foot bone spures, and spina bifidia, hydrocephelis of spine and shunt,. pt has right kidney only - Past Surgical History Past Surgical History: Yes (shunt, tethered spine x3,kid) Neuro Surgical History: No Pertinent History Cardiac: Other Respiratory: No Pertinent History Gastrointestinal: Cholecystectomy Genitourinary: Kidney Surgery Musculoskeletal: No Pertinent History Female Surgical History: Hysterectomy, Section Other Surgical History: KIDNEY REMOVED LEFT SIDE, "tailbone untethered x2"shunt placed between shoulder blades. ureters reimplanted.surgery on heart valve - Social History Smoking Status: Former smoker How long have you smoked: 12 Exposure to second hand smoke: No Drug Use: none Patient Lives Alone: No Significant Family History: no pertinent family hx - Female History Hx Last Menstrual Period: states had hysterectomy Hx Now: No - Nursing Vital Signs Nursing Vital Signs: Initial Vital Signs Temperature 98.2 F 04/15/23 17:50 Pulse Rate 95 H 04/15/23 17:50 Respiratory Rate 22 04/15/23 17:50 Blood Pressure 121/64 04/15/23 17:50 O2 Sat by Pulse Oximetry 98 04/15/23 17:50 Pain Scale Pain Intensity 0 - Physical Exam General Appearance: no apparent distress, alert Eye Exam: PERRL/EOMI, eyes nml inspection Ears, Nose, Throat Exam: normal ENT inspection, TMs normal, pharynx normal, moist mucous membranes Neck Exam: normal inspection, non-tender, supple, full range of motion Respiratory Exam: normal breath sounds, lungs clear, No respiratory distress Cardiovascular Exam: regular rate/rhythm, normal heart sounds Gastrointestinal/Abdomen Exam: soft, No tenderness Back Exam: normal inspection, No CVA tenderness, No vertebral tenderness Extremity Exam: normal inspection, normal range of motion Neurologic Exam: alert, oriented x 3, cooperative, normal mood/affect, sensation nml, No motor deficits Skin Exam: normal color, warm, dry, No rash Lymphatic Exam: No adenopathy SpO2 Interpretation: normal SpO2: 97 O2 Delivery: Room Air - Course Nursing assessment & vital signs reviewed: Yes Ordered Tests: Active Orders 24 hr Category Date Time Status Account Executive Key Accounts STAT Care 04/15/23 19:40 Active EKG-ER Only STAT Care 04/15/23 19:38 Active IV Insertion STAT Care 04/15/23 19:38 Active Re-Check Vital Signs STAT Care 04/15/23 19:38 Active CHEST 2 VIEWS (PA AND LAT) Stat Exams 04/15/23 19:39 Completed CHEST WITH CONTRAST [CT] Stat Exams 04/15/23 21:27 Completed VENOUS UNILAT/LIMITED EXTREMIT [US] Stat Exams 04/15/23 21:28 Taken CBC W DIFF Stat Lab 04/15/23 20:50 Completed CMP Stat Lab 04/15/23 20:50 Completed D-DIMER QUANTITATIVE Stat Lab 04/15/23 20:50 Completed HCG QUALITATIVE, SERUM Stat Lab 04/15/23 20:50 Completed Lactic Acid Stat Lab 04/15/23 21:00 Completed NT PRO BNPII Stat Lab 04/15/23 20:50 Completed TROPONIN Q4H Lab 04/15/23 20:50 Completed TROPONIN Q4H Lab 04/15/23 23:45 Ordered TROPONIN Q4H Lab 04/16/23 03:45 Ordered UA W/RFX UR CULTURE Stat Lab 04/16/23 00:27 Completed Respiratory Therapy Assessment DAILY RT 04/15/23 19:59 Active Medication Summary Generic Name Dose Route Start Last Admin Trade Name Freq PRN Reason Stop Dose Admin Sodium Chloride 1,000 mls @ 999 mls/hr 04/16/23 00:14 04/16/23 00:15 Sodium Chloride 0.9% 1000 Ml IV 04/16/23 01:14 999 mls/hr .Q1H1M STA Administration Discontinued Medications Generic Name Dose Route Start Last Admin Trade Name Freq PRN Reason Stop Dose Admin Albuterol/Ipratropium 3 ml 04/15/23 19:42 04/15/23 20:08 Ipratropium/Albuterol Sulfate 3 Ml Ampul.Neb IH 04/15/23 19:43 3 ml STAT ONE Administration Albuterol/Ipratropium Confirm 04/15/23 19:55 Ipratropium/Albuterol Sulfate 3 Ml Ampul.Neb Administered 04/15/23 19:56 Dose 3 ml IH .STK-MED ONE Methylprednisolone Sodium 0 mg 04/15/23 19:42 04/15/23 20:19 Succinate 125 mg/ Sterile IV 04/15/23 19:43 125 mg Water 2 ml STAT ONE Administration Sodium Chloride 1,000 mls @ 999 mls/hr 04/15/23 19:38 04/15/23 21:29 Sodium Chloride 0.9% 1000 Ml IV 04/15/23 20:38 Infused .Q1H1M STA Infusion Sodium Chloride Confirm 04/15/23 20:15 Sodium Chloride 0.9% 1000 Ml Administered 04/15/23 20:16 Dose 1,000 mls @ ud .ROUTE .STK-MED ONE Sodium Chloride 1,000 mls @ 999 mls/hr 04/15/23 22:39 04/16/23 00:08 Sodium Chloride 0.9% 1000 Ml IV 04/15/23 23:39 Infused .Q1H1M STA Infusion Sodium Chloride Confirm 04/15/23 23:04 Sodium Chloride 0.9% 1000 Ml Administered 04/15/23 23:05 Dose 1,000 mls @ ud .ROUTE .STK-MED ONE Sodium Chloride Confirm 04/16/23 00:14 Sodium Chloride 0.9% 1000 Ml Administered 04/16/23 00:15 Dose 1,000 mls @ ud .ROUTE .STK-MED ONE Lorazepam 1 mg 04/15/23 22:29 04/15/23 22:38 Lorazepam 1 Mg Tablet PO 04/15/23 22:30 1 mg STAT ONE Administration Lorazepam Confirm 04/15/23 22:36 Lorazepam 1 Mg Tablet Administered 04/15/23 22:37 Dose 1 mg .ROUTE .STK-MED ONE Methylprednisolone Sodium Succinate Confirm 04/15/23 20:15 Methylprednis Sod Succ 125 Mg/2 Ml Vial Administered 04/15/23 20:16 Dose 125 mg .ROUTE .STK-MED ONE Methylprednisolone Sodium Succinate Confirm 04/15/23 20:18 Methylprednis Sod Succ 125 Mg/2 Ml Vial Administered 04/15/23 20:19 Dose 125 mg .ROUTE .STK-MED ONE Sterile Water Confirm 04/15/23 20:17 Water For Injection,Sterile 10 Ml Vial Administered 04/15/23 20:18 Dose 10 ml IJ .STK-MED ONE Lab/Rad Data: Laboratory Result Diagrams 04/15/23 20:50 04/15/23 20:50 Laboratory Results 04/16/23 04/15/23 04/15/23 Range/Units 00:27 21:00 20:50 WBC (4.0-10.5) x10^3/uL RBC (4.1-5.4) x10^6/uL Hgb (12.0-16.0) g/dL Hct (35-47) % MCV (78-100) fL MCH (26-32) pg MCHC (32-36) g/dL RDW (11.5-14.0) % Plt Count (150-450) x10^3/uL MPV (7.5-11.0) fL Gran % (36.0-66.0) % Immature Gran % (Auto) (0.00-0.4) % Nucleat RBC Rel Count (0.00-0.1) % Eos # (Auto) (0-0.5) x10^3/uL Immature Gran # (Auto) (0.00-0.03) x10^3u/L Absolute Lymphs (auto) (1.0-4.6) x10^3/uL Absolute Monos (auto) (0.0-1.3) x10^3/uL Absolute Nucleated RBC (0.00-0.01) x10^3u/L Lymphocytes % (24.0-44.0) % Monocytes % (0.0-12.0) % Eosinophils % (0.00-5.0) % Basophils % (0.0-0.4) % Absolute Granulocytes (1.4-6.9) x10^3/uL Basophils # (0-0.4) x10^3/uL D-Dimer (0.0-0.50) mg/L Sodium (137-145) mmol/L Potassium (3.5-5.1) mmol/L Chloride (98-107) mmol/L Carbon Dioxide (22-30) mmol/L Anion Gap (5-15) MEQ/L BUN (7-17) mg/dL Creatinine (0.52-1.04) mg/dL Estimated GFR ML/MIN Glucose (74-106) mg/dL Lactic Acid 1.3 (0.4-2.0) Calcium (8.4-10.2) mg/dL Total Bilirubin (0.2-1.3) mg/dL AST (14-36) U/L ALT (0-35) U/L Alkaline Phosphatase (38-126) U/L Troponin I (0.000-0.034) ng/mL NT-Pro-B Natriuret Pep (<300) pg/mL Serum Total Protein (6.3-8.2) g/dL Albumin (3.5-5.0) g/dL Serum HCG, Qual NEGATIVE (NEGATIVE) Urine Color Yellow (Yellow) Urine Appearance Clear (Clear) Urine pH 8.0 (4.6-8.0) Ur Specific [place]ropic 1.020 (1.005-1.030) Urine Protein Negative (Negative) Urine Glucose (UA) Negative (Negative) mg/dL Urine Ketones Trace A (Negative) Urine Blood Negative (Negative) Urine Nitrite Negative (Negative) Urine Bilirubin Negative (Negative) Urine Urobilinogen 1.0 A (0.2) mg/dL Ur Leukocyte Esterase Negative (Negative) U Hyaline Cast (Auto) NONE SEEN (0-2) /LPF Urine Microscopic RBC 0-2 (0-5) /HPF Urine Microscopic WBC 0-2 (0-5) /HPF Ur Epithelial Cells Rare (None Seen) /HPF Urine Bacteria None Seen (None Seen) /HPF Urine Culture Reflexed NO (NO) Influenza Type A Ag (NEGATIVE) Influenza Type B Ag (NEGATIVE) RSV (PCR) (NEGATIVE) SARS-CoV-2 (PCR) (NEGATIVE) Group A Strep Antibody (NEGATIVE) 04/15/23 04/15/23 04/15/23 Range/Units 20:50 20:50 20:50 WBC (4.0-10.5) x10^3/uL RBC (4.1-5.4) x10^6/uL Hgb (12.0-16.0) g/dL Hct (35-47) % MCV (78-100) fL MCH (26-32) pg MCHC (32-36) g/dL RDW (11.5-14.0) % Plt Count (150-450) x10^3/uL MPV (7.5-11.0) fL Gran % (36.0-66.0) % Immature Gran % (Auto) (0.00-0.4) % Nucleat RBC Rel Count (0.00-0.1) % Eos # (Auto) (0-0.5) x10^3/uL Immature Gran # (Auto) (0.00-0.03) x10^3u/L Absolute Lymphs (auto) (1.0-4.6) x10^3/uL Absolute Monos (auto) (0.0-1.3) x10^3/uL Absolute Nucleated RBC (0.00-0.01) x10^3u/L Lymphocytes % (24.0-44.0) % Monocytes % (0.0-12.0) % Eosinophils % (0.00-5.0) % Basophils % (0.0-0.4) % Absolute Granulocytes (1.4-6.9) x10^3/uL Basophils # (0-0.4) x10^3/uL D-Dimer 1.09 H* (0.0-0.50) mg/L Sodium 134 L (137-145) mmol/L Potassium 3.5 (3.5-5.1) mmol/L Chloride 105 (98-107) mmol/L Carbon Dioxide 19 L (22-30) mmol/L Anion Gap 14.3 (5-15) MEQ/L BUN 11 (7-17) mg/dL Creatinine 0.78 (0.52-1.04) mg/dL Estimated GFR 99.0 ML/MIN Glucose 108 H (74-106) mg/dL Lactic Acid (0.4-2.0) Calcium 9.3 (8.4-10.2) mg/dL Total Bilirubin 0.60 (0.2-1.3) mg/dL AST 39 H (14-36) U/L ALT 49 H (0-35) U/L Alkaline Phosphatase 137 H (38-126) U/L Troponin I < 0.012 (0.000-0.034) ng/mL NT-Pro-B Natriuret Pep 247 (<300) pg/mL Serum Total Protein 7.2 (6.3-8.2) g/dL Albumin 4.1 (3.5-5.0) g/dL Serum HCG, Qual (NEGATIVE) Urine Color (Yellow) Urine Appearance (Clear) Urine pH (4.6-8.0) Ur Specific Tropic (1.005-1.030) Urine Protein (Negative) Urine Glucose (UA) (Negative) mg/dL Urine Ketones (Negative) Urine Blood (Negative) Urine Nitrite (Negative) Urine Bilirubin (Negative) Urine Urobilinogen (0.2) mg/dL Ur Leukocyte Esterase (Negative) U Hyaline Cast (Auto) (0-2) /LPF Urine Microscopic RBC (0-5) /HPF Urine Microscopic WBC (0-5) /HPF Ur Epithelial Cells (None Seen) /HPF Urine Bacteria (None Seen) /HPF Urine Culture Reflexed (NO) Influenza Type A Ag (NEGATIVE) Influenza Type B Ag (NEGATIVE) RSV (PCR) (NEGATIVE) SARS-CoV-2 (PCR) (NEGATIVE) Group A Strep Antibody (NEGATIVE) 04/15/23 04/15/23 04/15/23 Range/Units 20:50 20:15 20:15 WBC 10.9 H (4.0-10.5) x10^3/uL RBC 4.52 (4.1-5.4) x10^6/uL Hgb 13.3 (12.0-16.0) g/dL Hct 40.7 (35-47) % MCV 90.0 (78-100) fL MCH 29.4 (26-32) pg MCHC 32.7 (32-36) g/dL RDW 13.1 (11.5-14.0) % Plt Count 331 (150-450) x10^3/uL MPV 9.1 (7.5-11.0) fL Gran % 62.8 (36.0-66.0) % Immature Gran % (Auto) 0.4 (0.00-0.4) % Nucleat RBC Rel Count 0.0 (0.00-0.1) % Eos # (Auto) 0.07 (0-0.5) x10^3/uL Immature Gran # (Auto) 0.04 H (0.00-0.03) x10^3u/L Absolute Lymphs (auto) 3.04 (1.0-4.6) x10^3/uL Absolute Monos (auto) 0.84 (0.0-1.3) x10^3/uL Absolute Nucleated RBC 0.00 (0.00-0.01) x10^3u/L Lymphocytes % 27.9 (24.0-44.0) % Monocytes % 7.7 (0.0-12.0) % Eosinophils % 0.6 (0.00-5.0) % Basophils % 0.6 (0.0-0.4) % Absolute Granulocytes 6.85 (1.4-6.9) x10^3/uL Basophils # 0.06 (0-0.4) x10^3/uL D-Dimer (0.0-0.50) mg/L Sodium (137-145) mmol/L Potassium (3.5-5.1) mmol/L Chloride (98-107) mmol/L Carbon Dioxide (22-30) mmol/L Anion Gap (5-15) MEQ/L BUN (7-17) mg/dL Creatinine (0.52-1.04) mg/dL Estimated GFR ML/MIN Glucose (74-106) mg/dL Lactic Acid (0.4-2.0) Calcium (8.4-10.2) mg/dL Total Bilirubin (0.2-1.3) mg/dL AST (14-36) U/L ALT (0-35) U/L Alkaline Phosphatase (38-126) U/L Troponin I (0.000-0.034) ng/mL NT-Pro-B Natriuret Pep (<300) pg/mL Serum Total Protein (6.3-8.2) g/dL Albumin (3.5-5.0) g/dL Serum HCG, Qual (NEGATIVE) Urine Color (Yellow) Urine Appearance (Clear) Urine pH (4.6-8.0) Ur Specific Tropic (1.005-1.030) Urine Protein (Negative) Urine Glucose (UA) (Negative) mg/dL Urine Ketones (Negative) Urine Blood (Negative) Urine Nitrite (Negative) Urine Bilirubin (Negative) Urine Urobilinogen (0.2) mg/dL Ur Leukocyte Esterase (Negative) U Hyaline Cast (Auto) (0-2) /LPF Urine Microscopic RBC (0-5) /HPF Urine Microscopic WBC (0-5) /HPF Ur Epithelial Cells (None Seen) /HPF Urine Bacteria (None Seen) /HPF Urine Culture Reflexed (NO) Influenza Type A Ag NEGATIVE (NEGATIVE) Influenza Type B Ag NEGATIVE (NEGATIVE) RSV (PCR) NEGATIVE (NEGATIVE) SARS-CoV-2 (PCR) POSITIVE A (NEGATIVE) Group A Strep Antibody NOT DETECTED (NEGATIVE) - Progress Progress: improved, re-examined Air Movement: good Progress Note: 04/15/23 21:29 pt has Hx of DVT and now has covid and elevated D dimer - discussed risks/benefits with pt and she wishes to proceed with Right leg venous US and CT PE protocol to rule out clot complications. 04/15/23 23:[address] Elizabeth Hernandez our hospitalist to discuss possibilities for admission of this pt and with her Ct and US negative for PE and DVT respectively and normal cardiac enzymes and BNP he believes the risks are low and current period of monitoring and labs seem to indicate low risks for DC and outpt f/u. 04/16/23 00:18 Discussed risks/benefits and limitations of possible dexamethasone and pt wishes to proceed, she is not immunocompromized and with the potential interactions of paxlovid and others would prefer to hold off at this time as she feels much better after fluids. discussed her hx of blood thnners and increased risks for clots with covid and she prefers to discuss with her DrUdayto better understand risks prior to that intervention at this time. she is also aware that additional pathology could be progressing undetected including current and future blood clots and cardiac conditions even though CP now is resolved and enzymes were normal, and now prefers however to have further amezcua as outpt rather than in hospital or ER and has the capacity to make this choice. 04/16/23 00:34 04/16/23 00:53 04/16/23 00:59 Blood Culture(s) Obtained: No Antibiotics given: No Discussed with DrUday: Other (Dr. Erika hernandez ) Counseled pt/family regarding: lab results, diagnosis, need for follow-up, rad results Medical Desision Making - Independent Historian Additional History obtained from: EMS - Discussion of managment Care discussed with:: hospitalist Reviewed:: Test results, Need for additional workup Agreed on:: Treatment plan, need for follow-up - Diagnostic Testing Diagnostic test were ordered, analyzed, and reviewed by me: Yes Radiological Interpretation: Interpreted by me, Reviewed by me, Teleradiologist Report - Risk of complications The pt has a mod risk of morbidity or mortality based on: Need for prescription drug management The pt has a high risk of morbidity or mortality based on: Decision regarding hospitilization or escalation of hosp level of care - Departure Departure Disposition: Home Clinical Impression: COVID-19, Episode of syncope, D-dimer, elevated Condition: Good Critical Care Time: No Referrals: SANDRA NEWMAN [Primary Care Provider] - Follow up/PCP as directed Instructions: Syncope (Fainting) (DC), COVID-19 (DC) Additional Instructions: follow-up with your Dr. for further workup of your episode of passing out. Although it appears to have been a combination of covid and dehydration, there still can be other factors or conditions/complication to be found or later developing. Therefore it is important to followup with your Dr. and also to determine if other treatments such as blood thinners might again be appropriate in your case. continue monitoring the oxygen level with your watch and tell your Dr or return if it gets into the lower 90s. observe for any signs of the recurring blood clots like swelling, pain or redness , since there is a continuing risk even with the negative tests performed. Prescriptions: Dexamethasone 4 mg [Decadron 4 MG] 6 mg PO DAILY #20 tablet
[2023-04-15] MEDS ORDERED: Sodium Chloride 0.9% 1000 ML 1,000 ML IV STA ×2 (19:38→22:39)
[2023-04-15] MEDS ORDERED: DUONEB 0.5-3 MG/3 ml Neb IH ONE ×2 (19:42→19:55)
[2023-04-15] MEDS ORDERED: solu-MEDROL 125 MG, Sterile H2O 10 ml 2 ML IV ONE ×2 (19:42)
[2023-04-15] MEDS ORDERED: Sodium Chloride 0.9% 1000 ML 1,000 ML ONE ×2 (20:15→23:04)
[2023-04-15] MEDS ORDERED: solu-MEDROL ONE ×2 (20:15→20:18)
[2023-04-15] MEDS ORDERED: Sterile H2O 10 ml IJ ONE (20:17)
[2023-04-15 20:51] LABS: INFLUENZA A NEGATIVE (NEGATIVE); INFLUENZA B NEGATIVE (NEGATIVE); RESPIRATORY SYNCTIAL VIRUS NEGATIVE (NEGATIVE)
[2023-04-15 20:53] LABS: SARS-CoV-2 Xpert Express POSITIVE (NEGATIVE)
[2023-04-15 20:55] LABS: Absolute Neutrophil Ct (ANC) 6.85 x10^3/uL (1.4-6.9); BASOPHIL % 0.6 % (0.0-0.4); Basophil (Absolute #) 0.06 x10^3/uL (0-0.4); Eosinophil % 0.6 % (0.00-5.0); Eosinophil (Absolute #) 0.07 x10^3/uL (0-0.5); Hematocrit 40.7 % (35-47); Hemoglobin 13.3 g/dL (12.0-16.0); IMMATURE GRAN # 0.04 x10^3u/L (0.00-0.03); IMMATURE GRAN % 0.4 % (0.00-0.4); Lymphocyte (Absolute #) 3.04 x10^3/uL (1.0-4.6); Lymphocytes % 27.9 % (24.0-44.0); Mean Corpuscular Hemoglobin 29.4 pg (26-32); Mean Corpuscular Hgb Concent. 32.7 g/dL (32-36); Mean Platelet Volume 9.1 fL (7.5-11.0); Monocyte (Absolute #) 0.84 x10^3/uL (0.0-1.3); Monocytes % 7.7 % (0.0-12.0); Neutrophil % 62.8 % (36.0-66.0); Platelet Count 331 x10^3/uL (150-450); Red Blood Count 4.52 x10^6/uL (4.1-5.4); Red Cell Distribution Width 13.1 % (11.5-14.0); White Blood Count 10.9 x10^3/uL (4.0-10.5)
[2023-04-15 21:07] LABS: ALBUMIN 4.1 g/dL (3.5-5.0); ANION GAP 14.3 MEQ/L (5-15); BILIRUBIN,TOTAL 0.6 mg/dL (0.2-1.3); Calcium 9.3 mg/dL (8.4-10.2); Creatinine 1 0.78 mg/dL (0.52-1.04); Potassium 3.5 mmol/L (3.5-5.1); Total Protein 7.2 g/dL (6.3-8.2)
[2023-04-15 21:13] LABS: HCG SERUM TEST NEGATIVE (NEGATIVE)
[2023-04-15 21:23] LABS: NT PRO BNPII 247 pg/mL (<300); TROPONIN < 0.012 ng/mL (0.000-0.034)
--- NOTE | 2023-04-15 22:21 | XRAY ---
Indication: Cough and short of breath. Positive Covid 19. Comparison: March 18, 2023 PA/lateral chest demonstrates new subtle bibasilar groundglass airspace opacities without consolidation/large effusion. Heart not enlarged. Bony thorax intact again with mild degenerative changes.
[2023-04-15] MEDS ORDERED: Ativan 1 MG PO ONE (22:29)
[2023-04-15] MEDS ORDERED: Ativan 1 MG ONE (22:36)
--- NOTE | 2023-04-15 23:25 | XRAY ---
CLINICAL HISTORY:elevated D dimer , SOBreath Syncope COMPARISON:03/18/2023 CR, was reviewed. TECHNIQUE:A CT with contrast was performed using 75 mL Omnipaque 350 contrast with sagittal and coronal reformats. FINDINGS: The main pulmonary trunk, right and left pulmonary arteries with the ascending and descending branches are normal. The segmental branches are normal in caliber and show good contrast opacification with no evidence of filling defect/thrombosis. No evidence of any focal filling defect seen. The aortic arch and visualized ascending aorta and descending aorta are normal. A 6.5 mm nodule with central calcification noted in left lingula. A small 2 mm calcified nodule is seen adjacent to the larger one in lingula. A 12 x 9 mm calcified node was noted in the prevascular region. Bilateral lung alfaro are normal in translucency and markings otherwise. No significant mediastinal lymphadenopathy. No evidence of pleural/pericardial effusion. The thoracic spine shows degenerative changes. The scanned upper abdomen appears unremarkable. Cholecystectomy clips are noted. IMPRESSION: 1. Unremarkable CT chest with contrast, no evidence of acute thromboembolism 2. Calcified nodule in left lingula and perivascular region, no follow-up required Electronically Signed by: Nayan Robledo MD. (04/15/2023 23:20:19 EST)
[2023-04-16] MEDS ORDERED: Sodium Chloride 0.9% 1000 ML 1,000 ML ONE (00:14)
[2023-04-16] MEDS ORDERED: Sodium Chloride 0.9% 1000 ML 1,000 ML IV STA (00:14)
[2023-04-16 00:24] VITALS: O2SAT 97
[2023-04-16 00:46] LABS: ADD URINE CULTURE? NO (NO); Appearance Clear (Clear); Bacteria None Seen /HPF (None Seen); Bilirubin Negative (Negative); Blood Negative (Negative); Epithelial Cells Rare /HPF (None Seen); Glucose, Urine Negative (Negative); Hyaline Casts NONE SEEN /LPF (0-2); Ketones Trace (Negative); Leukocyte Esterase Negative (Negative); Nitrite Negative (Negative); Protein,Urine Dip Negative (Negative); RBC 0-2 /HPF (0-5); WBC 0-2 /HPF (0-5)
[2023-04-16 01:05] VITALS: BP 132/85; PULSE 71; RESP 14
--- NOTE | 2023-04-16 07:50 | XRAY ---
Indication: Calf tenderness. DVT. Two-dimensional sonogram and color Doppler imaging of the major venous vessels of the right leg performed. Comparison: None No thrombus seen in the examined deep venous vessels of the right leg including greater saphenous vein. Veins demonstrate normal compressibility. Venous waveforms are normal with and without augmentation. Impression: Right leg negative for DVT. Comment: Preliminary report was given.
== END 2023-04-16 01:35 | disposition home or self-care (01) ==
LOC: ED 17:46
DX: U07.1 COVID-19 (principal); R55 Syncope and collapse; R79.1 Abnormal coagulation profile; R06.02 Shortness of breath; Z79.52 Long term (current) use of systemic steroids; Z79.85 Long-term (current) use of injectable non-insulin antidiabetic drugs; Z79.899 Other long term (current) drug therapy
CPT/HCPCS: 0241U; 36000; 36415; 71046; 71260; 80053; 81001; 83605; 83880; 84484; 84703; 85025; 85379; 87651; 93005; 93041; 93971; 94640; 96360; 96361; 96374; 99285; J2930; A9270-GY

== ENCOUNTER 2023-07-06 11:59 | Emergency (ER) | payer MEDICARE ==
[2023-07-06 12:09] VITALS: TEMP 96.8
--- NOTE | 2023-07-06 12:38 | ERPHSYRPT ---
- History of Present Illness Time Seen by Provider: 07/06/23 12:00 Source: patient Exam Limitations: no limitations Patient Subjective Stated Complaint: Pt states "I have been having episodes of passing out and fever and nasuea, vomiting and diarrhea." Triage Nursing Assessment: PT presented alert and oriented X 3, skin pwd. Pt ambulates with a slow shuflfing gait, able to speak in clear full sentences. PT able to move all extremities. Pt in no apparent respiratory distress. at this time. Physician History: 38-year-old female with multiple medical problems presented to the ER with almost 6 days history of off-and-on vomiting nonprojectile, nonbilious and loose stool, feeling weak fatigued tired dehydrated and as if she is going to pass out. Patient reports she gets the feeling of being warmth and it happens u sually when she tries to stand up and ambulate. She passed out once 5 days ago, was taken to regional ER where she was thoroughly evaluated and was discharged. Patient reports her diarrhea is better but still have vomiting and is not able to hold much down. For the last 2 to 3 days she is having tingling sensations in both hands and arms. Has issues with keeping up with her potassium. Denies any headache or focal weakness, visual disturbance or difficulty speech but does report feeling lightheaded with standing as well. Subjective feeling of fever and chills reported. Allergies/Adverse Reactions: latex Allergy (Verified 04/15/23 17:58) ibuprofen Adverse Reaction (Verified 04/15/23 17:58) don't take due to kidney issue tape Adverse Reaction (Uncoded 04/15/23 17:58) Home Medications: Omeprazole 20 mg PO DAILY 03/26/19 [History] PARoxetine HCL [Paroxetine HCl] 40 mg PO DAILY 03/26/19 [History] Albuterol 8 gm Mdi Hfa [Ventolin Hfa MDI] 1 puff IH Q4-6HPRN PRN 03/31/21 [History] Fluticasone/Vilanterol [Breo Ellipta 200-25 Mcg INH] 1 puff IH DAILY 03/31/21 [History] Tiotropium [place] [Spiriva Respimat] 1 puff IH DAILY 03/31/21 [History] dilTIAZem HCl [Diltiazem 24Hr Cd] 180 mg PO DAILY 05/31/21 [History] Aspirin 81 gm Chew [Baby Aspirin 81 mg Chew] 81 mg PO DAILY 02/19/23 [History] Semaglutide [Ozempic] 2 mg SQ UD 02/19/23 [History] Potassium Chloride Tab* [Klor Con] 10 meq PO TID 03/18/23 [History] Phentermine HCl [Adipex-P] 37.5 mg PO DAILY 07/06/23 [History] Venlafaxine HCl 37.5 mg [Effexor 37.5 mg] 37.5 mg PO DAILY 07/06/23 [History] Hx Tetanus, Diphtheria Vaccination/Date Given: No Hx Influenza Vaccination/Date Given: No Hx Pneumococcal Vaccination/Date Given: No Immunizations Up to Date: No Travel Risk - International Travel Have you traveled outside of the country in past 3 weeks: No - Coronavirus Screening Symptoms: Fever, Cough: New Onset, Shortness of Breath Close contact with a COVID-19 positive Pt in past 14-21 Days: No - Vaccine Status Have you recieved a Covid-19 vaccination: Yes Clinical Aide: Moderna - Vaccination Dates Date of 2cond Vaccination (if applicable): 07/03/2020 - Review of Systems Constitutional: Fever, Chills, Fatigue, Weakness Eyes: No Symptoms Ears, Nose, & Throat: No Symptoms Respiratory: No Symptoms Cardiac: No Symptoms Abdominal/Gastrointestinal: Nausea, Vomiting, Diarrhea Genitourinary Symptoms: No Symptoms Musculoskeletal: No Symptoms Skin: No Symptoms Neurological: Dizziness Endocrine: No Symptoms Hematologic/Lymphatic: No Symptoms Immunological/Allergic: No Symptoms - Past Medical History Pertinent Past Medical History: Yes Neurological History: Migraines, TIA ENT History: No Pertinent History Cardiac History: Coronary Artery Disease, Other Respiratory History: Asthma, Bronchitis Endocrine Medical History: Adrenal Insufficiency Musculoskeletal History: Other GI Medical History: No Pertinent History History: Renal Disease Psycho-Social History: Anxiety, Bipolar Female Reproductive Disorders: Menstrual Problems Other Medical History: L foot bone spures, and spina bifidia, hydrocephelis of spine and shunt,. pt has right kidney only - Past Surgical History Past Surgical History: Yes (shunt, tethered spine x3,kid) Neuro Surgical History: No Pertinent History Cardiac: Other Respiratory: No Pertinent History Gastrointestinal: Cholecystectomy Genitourinary: Kidney Surgery Musculoskeletal: No Pertinent History Female Surgical History: Hysterectomy, Section Other Surgical History: KIDNEY REMOVED LEFT SIDE, "tailbone untethered x2"shunt placed between shoulder blades. ureters reimplanted.surgery on heart valve - Social History Smoking Status: Former smoker How long have you smoked: 12 Exposure to second hand smoke: No Drug Use: none Patient Lives Alone: Yes Significant Family History: no pertinent family hx - Female History Hx Last Menstrual Period: hysterectomy Hx Now: No - Nursing Vital Signs Nursing Vital Signs: Initial Vital Signs Temperature 96.8 F 07/06/23 12:00 Pulse Rate 74 07/06/23 12:00 Respiratory Rate 22 07/06/23 12:00 Blood Pressure 124/79 07/06/23 12:00 O2 Sat by Pulse Oximetry 100 07/06/23 12:00 Pain Scale Pain Intensity 0 - Physical Exam General Appearance: no apparent distress, alert Eye Exam: PERRL/EOMI Ears, Nose, Throat Exam: normal ENT inspection Neck Exam: normal inspection, non-tender, supple, full range of motion Respiratory Exam: normal breath sounds, lungs clear Cardiovascular Exam: regular rate/rhythm, normal heart sounds Gastrointestinal/Abdomen Exam: soft, normal bowel sounds, No tenderness Back Exam: normal inspection, normal range of motion Neurologic Exam: alert, oriented x 3, cooperative, 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 nml as tested, normal mood/affect, nml cerebellar function, nml station & gait, sensation nml, No motor deficits, No sensory deficit Skin Exam: normal color SpO2 Interpretation: normal SpO2: 100 O2 Delivery: Room Air - Course EKG Interpreted by Me: RATE (65), Sinus Rhythm, NORMAL AXIS, NORMAL INTERVALS, Other (Nonspecific T wave changes) Ordered Tests: Active Orders 24 hr Category Date Time Status EKG-ER Only STAT Care 07/06/23 12:32 Active IV Insertion STAT Care 07/06/23 12:32 Active NPO (ED) STAT Care 07/06/23 12:32 Active Orthostatic Vital Signs STAT Care 07/06/23 12:34 Active CHEST 1 VIEW (PORTABLE) Stat Exams 07/06/23 12:33 Completed CBC W DIFF Stat Lab 07/06/23 12:45 Completed CMP Stat Lab 07/06/23 12:45 Completed LIPASE Stat Lab 07/06/23 12:45 Completed Lactic Acid Stat Lab 07/06/23 12:45 Completed MAGNESIUM Stat Lab 07/06/23 12:45 Completed TROPONIN Q4H Lab 07/06/23 12:45 Completed TROPONIN Q4H Lab 07/06/23 16:45 Ordered TROPONIN Q4H Lab 07/06/23 20:45 Ordered UA W/RFX UR CULTURE Stat Lab 07/06/23 15:48 Received Medication Summary Discontinued Medications Generic Name Dose Route Start Last Admin Trade Name Pedro Pablo PRN Reason Stop Dose Admin Sodium Chloride 1,000 mls @ 999 mls/hr 07/06/23 12:32 07/06/23 14:07 Sodium Chloride 0.9% 1000 Ml IV 07/06/23 13:32 Infused .Q1H1M STA Infusion Sodium Chloride Confirm 07/06/23 12:50 Sodium Chloride 0.9% 1000 Ml Administered 07/06/23 12:51 Dose 1,000 mls @ ud .ROUTE .STK-MED ONE Meclizine HCl 25 mg 07/06/23 12:34 07/06/23 12:54 Meclizine Hcl 25 Mg Tablet PO 07/06/23 12:35 25 mg STAT ONE Administration Meclizine HCl Confirm 07/06/23 12:49 Meclizine Hcl 25 Mg Tablet Administered 07/06/23 12:50 Dose 25 mg .ROUTE .STK-MED ONE Ondansetron HCl 4 mg 07/06/23 12:32 07/06/23 12:59 Ondansetron Hcl 4 Mg/2 Ml Vial IV 07/06/23 12:33 4 mg STAT ONE Administration Ondansetron HCl Confirm 07/06/23 12:49 Ondansetron Hcl 4 Mg/2 Ml Vial Administered 07/06/23 12:50 Dose 4 mg .ROUTE .STK-MED ONE Lab/Rad Data: Laboratory Result Diagrams 07/06/23 12:45 07/06/23 12:45 Laboratory Results 07/06/23 07/06/23 07/06/23 Range/Units 15:48 12:45 12:45 WBC (4.0-10.5) x10^3/uL RBC (4.1-5.4) x10^6/uL Hgb (12.0-16.0) g/dL Hct (35-47) % MCV (78-100) fL MCH (26-32) pg MCHC (32-36) g/dL RDW (11.5-14.0) % Plt Count (150-450) x10^3/uL MPV (7.5-11.0) fL Gran % (36.0-66.0) % Immature Gran % (Auto) (0.00-0.4) % Nucleat RBC Rel Count (0.00-0.1) % Eos # (Auto) (0-0.5) x10^3/uL Immature Gran # (Auto) (0.00-0.03) x10^3u/L Absolute Lymphs (auto) (1.0-4.6) x10^3/uL Absolute Monos (auto) (0.0-1.3) x10^3/uL Absolute Nucleated RBC (0.00-0.01) x10^3u/L Lymphocytes % (24.0-44.0) % Monocytes % (0.0-12.0) % Eosinophils % (0.00-5.0) % Basophils % (0.0-0.4) % Absolute Granulocytes (1.4-6.9) x10^3/uL Basophils # (0-0.4) x10^3/uL Sodium (137-145) mmol/L Potassium (3.5-5.1) mmol/L Chloride (98-107) mmol/L Carbon Dioxide (22-30) mmol/L Anion Gap (5-15) MEQ/L BUN (7-17) mg/dL Creatinine (0.52-1.04) mg/dL Estimated GFR ML/MIN Glucose (74-106) mg/dL Lactic Acid (0.4-2.0) Calcium (8.4-10.2) mg/dL Magnesium (1.6-2.3) mg/dL Total Bilirubin (0.2-1.3) mg/dL AST (14-36) U/L ALT (0-35) U/L Alkaline Phosphatase (38-126) U/L Troponin I < 0.012 (0.000-0.034) ng/mL Serum Total Protein (6.3-8.2) g/dL Albumin (3.5-5.0) g/dL Lipase (23-300) U/L Urine Color Yellow (Yellow) Urine Appearance Cloudy A (Clear) Urine pH 6.0 (4.6-8.0) Ur Specific [place] 1.010 (1.005-1.030) Urine Protein Negative (Negative) Urine Glucose (UA) Negative (Negative) mg/dL Urine Ketones Negative (Negative) Urine Blood Negative (Negative) Urine Nitrite Negative (Negative) Urine Bilirubin Negative (Negative) Urine Urobilinogen 0.2 (0.2) mg/dL Ur Leukocyte Esterase Trace A (Negative) U Hyaline Cast (Auto) NONE SEEN (0-2) /LPF Urine Microscopic RBC 0-2 (0-5) /HPF Urine Microscopic WBC 11-20 A (0-5) /HPF Ur Epithelial Cells Many A (None Seen) /HPF Urine Bacteria Few A (None Seen) /HPF Urine Culture Reflexed YES (NO) Influenza Type A Ag NEGATIVE (NEGATIVE) Influenza Type B Ag NEGATIVE (NEGATIVE) RSV (PCR) NEGATIVE (NEGATIVE) SARS-CoV-2 (PCR) NEGATIVE (NEGATIVE) 07/06/23 07/06/23 07/06/23 Range/Units 12:45 12:45 12:45 WBC 11.1 H (4.0-10.5) x10^3/uL RBC 4.53 (4.1-5.4) x10^6/uL Hgb 13.2 (12.0-16.0) g/dL Hct 40.6 (35-47) % MCV 89.6 (78-100) fL MCH 29.1 (26-32) pg MCHC 32.5 (32-36) g/dL RDW 13.2 (11.5-14.0) % Plt Count 333 (150-450) x10^3/uL MPV 9.1 (7.5-11.0) fL Gran % 61.7 (36.0-66.0) % Immature Gran % (Auto) 0.4 (0.00-0.4) % Nucleat RBC Rel Count 0.0 (0.00-0.1) % Eos # (Auto) 0.29 (0-0.5) x10^3/uL Immature Gran # (Auto) 0.04 H (0.00-0.03) x10^3u/L Absolute Lymphs (auto) 3.33 (1.0-4.6) x10^3/uL Absolute Monos (auto) 0.53 (0.0-1.3) x10^3/uL Absolute Nucleated RBC 0.00 (0.00-0.01) x10^3u/L Lymphocytes % 29.9 (24.0-44.0) % Monocytes % 4.8 (0.0-12.0) % Eosinophils % 2.6 (0.00-5.0) % Basophils % 0.6 (0.0-0.4) % Absolute Granulocytes 6.88 (1.4-6.9) x10^3/uL Basophils # 0.07 (0-0.4) x10^3/uL Sodium 136 L (137-145) mmol/L Potassium 3.7 (3.5-5.1) mmol/L Chloride 105 (98-107) mmol/L Carbon Dioxide 23 (22-30) mmol/L Anion Gap 10.9 (5-15) MEQ/L BUN 10 (7-17) mg/dL Creatinine 0.75 (0.52-1.04) mg/dL Estimated GFR 103.8 ML/MIN Glucose 104 (74-106) mg/dL Lactic Acid 1.3 (0.4-2.0) Calcium 9.6 (8.4-10.2) mg/dL Magnesium 2.0 (1.6-2.3) mg/dL Total Bilirubin 0.80 (0.2-1.3) mg/dL AST 35 (14-36) U/L ALT 44 H (0-35) U/L Alkaline Phosphatase 104 (38-126) U/L Troponin I (0.000-0.034) ng/mL Serum Total Protein 7.5 (6.3-8.2) g/dL Albumin 4.4 (3.5-5.0) g/dL Lipase 43 (23-300) U/L Urine Color (Yellow) Urine Appearance (Clear) Urine pH (4.6-8.0) Ur Specific [place] (1.005-1.030) Urine Protein (Negative) Urine Glucose (UA) (Negative) mg/dL Urine Ketones (Negative) Urine Blood (Negative) Urine Nitrite (Negative) Urine Bilirubin (Negative) Urine Urobilinogen (0.2) mg/dL Ur Leukocyte Esterase (Negative) U Hyaline Cast (Auto) (0-2) /LPF Urine Microscopic RBC (0-5) /HPF Urine Microscopic WBC (0-5) /HPF Ur Epithelial Cells (None Seen) /HPF Urine Bacteria (None Seen) /HPF Urine Culture Reflexed (NO) Influenza Type A Ag (NEGATIVE) Influenza Type B Ag (NEGATIVE) RSV (PCR) (NEGATIVE) SARS-CoV-2 (PCR) (NEGATIVE) - Progress Progress: improved Progress Note: 07/06/23 16:20 38-year-old is evaluated for gastroenteritis symptoms for the last few days with feeling fainting, near syncope with standing/lightheadedness. Patient has nonfocal neuroexam. She has a subjective feeling of bilateral upper extremity tingling sensation. She is given fluid bolus. Orthostatics are negative. Workup showed white count of 11, chemistries fairly unremarkable. Negative COVID flu and RSV. Chest x-ray negative for any acute cardiopulmonary findings. EKG negative for any acute ischemic changes. Negative troponins. I believe patient has some element of dehydration and on reevaluation her tingling sensations are improved. I do not think patient needs CT head or any other workup. She is advised to drink plenty of fluids. I will give her Zofran to take as needed. Discussed signs symptoms of worsening needing return to ER which she seems understanding. Stable for discharge. Counseled pt/family regarding: lab results, diagnosis, need for follow-up, rad results Medical Desision Making - Diagnostic Testing Diagnostic test were ordered, analyzed, and reviewed by me: Yes Radiological Interpretation: Reviewed by me - Risk of complications The pt has a mod risk of morbidity or mortality based on: Need for prescription drug management - Departure Departure Disposition: Home Clinical Impression: Gastroenteritis, Near syncope Condition: Stable Critical Care Time: No Referrals: SANDRA NEWMAN [Primary Care Provider] - Follow up with PCP 1 day Instructions: Syncope (Fainting) (DC), Viral Gastroenteritis, Adult (DC) Additional Instructions: Drink plenty of fluids to keep yourself well-hydrated. Follow-up with your primary care for reevaluation. Take Zofran as Tylenol as needed. Return to ER for intractable vomiting/diarrhea/abdominal pain/fever chills etc. Prescriptions: Ondansetron ODT 4 MG [Zofran Odt 4 mg] 1 ea PO QIDPRN PRN #7 tablet PRN Reason: n/v
[2023-07-06] MEDS ORDERED: ANTIVERT 25 MG ONE (12:49)
[2023-07-06] MEDS ORDERED: Zofran 4 MG/2 ML VIAL ONE (12:49)
[2023-07-06 12:50] LABS: Absolute Neutrophil Ct (ANC) 6.88 x10^3/uL (1.4-6.9); BASOPHIL % 0.6 % (0.0-0.4); Basophil (Absolute #) 0.07 x10^3/uL (0-0.4); Eosinophil % 2.6 % (0.00-5.0); Eosinophil (Absolute #) 0.29 x10^3/uL (0-0.5); Hematocrit 40.6 % (35-47); Hemoglobin 13.2 g/dL (12.0-16.0); IMMATURE GRAN # 0.04 x10^3u/L (0.00-0.03); IMMATURE GRAN % 0.4 % (0.00-0.4); Lymphocyte (Absolute #) 3.33 x10^3/uL (1.0-4.6); Lymphocytes % 29.9 % (24.0-44.0); Mean Cell Volume 89.6 fL (78-100); Mean Corpuscular Hemoglobin 29.1 pg (26-32); Mean Corpuscular Hgb Concent. 32.5 g/dL (32-36); Mean Platelet Volume 9.1 fL (7.5-11.0); Monocyte (Absolute #) 0.53 x10^3/uL (0.0-1.3); Monocytes % 4.8 % (0.0-12.0); Neutrophil % 61.7 % (36.0-66.0); Platelet Count 333 x10^3/uL (150-450); Red Blood Count 4.53 x10^6/uL (4.1-5.4); Red Cell Distribution Width 13.2 % (11.5-14.0); White Blood Count 11.1 x10^3/uL (4.0-10.5)
[2023-07-06] MEDS ORDERED: Sodium Chloride 0.9% 1000 ML 1,000 ML ONE (12:50)
[2023-07-06] MEDS: ANTIVERT 25 MG PO ONE (12:54)
[2023-07-06] MEDS: Sodium Chloride 0.9% 1000 ML 1,000 ML IV STA (12:58)
[2023-07-06] MEDS: Zofran 4 MG/2 ML VIAL IV ONE (12:59)
[2023-07-06 13:07] LABS: ALBUMIN 4.4 g/dL (3.5-5.0); ANION GAP 10.9 MEQ/L (5-15); BILIRUBIN,TOTAL 0.8 mg/dL (0.2-1.3); Calcium 9.6 mg/dL (8.4-10.2); Creatinine 1 0.75 mg/dL (0.52-1.04); EST GLOMERULAR FILTRATION RATE 103.8 ML/MIN; Potassium 3.7 mmol/L (3.5-5.1); Total Protein 7.5 g/dL (6.3-8.2)
--- NOTE | 2023-07-06 13:11 | XRAY ---
Indication: General weakness. Comparison: April 15, 2023 Portable chest now demonstrates normal heart and lungs. Bony thorax intact with mild degenerative changes. No new/acute findings.
[2023-07-06 13:29] LABS: INFLUENZA A NEGATIVE (NEGATIVE); INFLUENZA B NEGATIVE (NEGATIVE); RESPIRATORY SYNCTIAL VIRUS NEGATIVE (NEGATIVE); SARS-CoV-2 Xpert Express NEGATIVE (NEGATIVE)
[2023-07-06 16:23] VITALS: O2SAT 100
[2023-07-06 16:23] LABS: Appearance Cloudy (Clear); Bacteria Few /HPF (None Seen); Bilirubin Negative (Negative); Blood Negative (Negative); Epithelial Cells Many /HPF (None Seen); Glucose, Urine Negative (Negative); Hyaline Casts NONE SEEN /LPF (0-2); Ketones Negative (Negative); Leukocyte Esterase Trace (Negative); Nitrite Negative (Negative); Protein,Urine Dip Negative (Negative); RBC 0-2 /HPF (0-5); Urobilinogen 0.2 mg/dL (0.2)
[2023-07-06 16:43] LABS: ADD URINE CULTURE? YES (NO)
[2023-07-06 16:46] VITALS: BP 110/68; PULSE 65; RESP 20
== END 2023-07-06 16:51 | disposition home or self-care (01) ==
LOC: ED 11:59
DX: K52.9 Noninfective gastroenteritis and colitis, unspecified (principal); R55 Syncope and collapse; R11.2 Nausea with vomiting, unspecified; R53.1 Weakness; R53.83 Other fatigue; R20.2 Paresthesia of skin; Z79.85 Long-term (current) use of injectable non-insulin antidiabetic drugs; Z79.899 Other long term (current) drug therapy; Z20.828 Contact with and (suspected) exposure to other viral communicable diseases
CPT/HCPCS: 0241U; 36000; 36415; 71045; 80053; 81001; 83605; 83690; 83735; 84484; 85025; 87086; 93005; 96360; 96374; 99284; 87077; 87186; J2405; A9270-GY

== ENCOUNTER 2023-10-01 17:41 | Emergency (ER) | payer MEDICARE ==
[2023-10-01 17:59] VITALS: TEMP 97.8
--- NOTE | 2023-10-01 18:19 | ERPHSYRPT ---
- History of Present Illness Source: patient Exam Limitations: no limitations Patient Subjective Stated Complaint: Pt states "I have been fighting this for awhile, my arms are tingling. The last time it got this bad my potassium was really low. I had diarrhea last week and there were worms in it and they dewormed me." Triage Nursing Assessment: Pt presented alert and oriented X 3, skin wpd. Pt ambulates with an upright steady gait, able to speak in clear full sentences. PT resting comfortably on the bed. Severity: mild Modifying Factors: Improves With: nothing Associated Symptoms: denies symptoms Hx Tetanus, Diphtheria Vaccination/Date Given: No Hx Influenza Vaccination/Date Given: No Hx Pneumococcal Vaccination/Date Given: No Immunizations Up to Date: No <ADAM IZQUIERDO - Last Filed: 10/01/23 18:54> <CORY VILLEGAS - Last Filed: 10/01/23 23:00> - History of Present Illness Time Seen by Provider: 10/01/23 18:10 Physician History: This is a 38-year-old morbidly obese white female patient of Dr. Newman who presents with tingling in her hands for at least 2 weeks followed by diarrhea that she had last week. Worms were discovered in her stool and she took "deworming" medication. She has not had any further diarrhea in the last couple of days. Patient had this tingling sensation in her upper extremities in the past and was placed on potassium. This morning the sensation in her bilateral upper extremities were little more significant and therefore she took some potassium that she had at her home. She did not hit her head. She can move all her extremities. She had no visual changes. She denies headache. She has no chest pain. She has no shortness of breath. She has no abdominal pain. (ADAM IZQUIERDO) Allergies/Adverse Reactions: latex Allergy (Verified 04/15/23 17:58) ibuprofen Adverse Reaction (Verified 04/15/23 17:58) don't take due to kidney issue tape Adverse Reaction (Uncoded 04/15/23 17:58) Home Medications: Omeprazole 20 mg PO DAILY 03/26/19 [History] PARoxetine HCL [Paroxetine HCl] 40 mg PO DAILY 03/26/19 [History] Albuterol 8 gm Mdi Hfa [Ventolin Hfa MDI] 1 puff IH Q4-6HPRN PRN 03/31/21 [History] Fluticasone/Vilanterol [Breo Ellipta 200-25 Mcg INH] 1 puff IH DAILY 03/31/21 [History] Tiotropium [place] [Spiriva Respimat] 1 puff IH DAILY 03/31/21 [History] Aspirin 81 gm Chew [Baby Aspirin 81 mg Chew] 81 mg PO DAILY 02/19/23 [History] Semaglutide [Ozempic] 2 mg SQ UD 02/19/23 [History] Potassium Chloride Tab* [Klor Con] 10 meq PO TID 03/18/23 [History] Albendazole 200 mg PO DAILY 10/01/23 [History] Benazepril HCl [Lotensin] 10 mg PO DAILY 10/01/23 [History] armodafiniL [Armodafinil] 250 mg PO DAILY 10/01/23 [History] Travel Risk - International Travel Have you traveled outside of the country in past 3 weeks: No - Emerging Infectious Disease Are you exhibiting symptoms associated with any current EIDs: No <ADAM IZQUIERDO - Last Filed: 10/01/23 18:54> - Review of Systems Constitutional: No Symptoms Eyes: No Symptoms Ears, Nose, & Throat: No Symptoms Respiratory: No Symptoms Cardiac: No Symptoms Abdominal/Gastrointestinal: No Symptoms Genitourinary Symptoms: No Symptoms Musculoskeletal: No Symptoms Skin: No Symptoms Neurological: No Symptoms Psychological: No Symptoms Endocrine: No Symptoms Hematologic/Lymphatic: No Symptoms Immunological/Allergic: No Symptoms All Other Systems: Reviewed and Negative <ADAM IZQUIERDO - Last Filed: 10/01/23 18:54> - Past Medical History Pertinent Past Medical History: Yes Neurological History: Migraines, TIA ENT History: No Pertinent History Cardiac History: Coronary Artery Disease, Other Respiratory History: Asthma, Bronchitis Endocrine Medical History: Adrenal Insufficiency Musculoskeletal History: Other GI Medical History: No Pertinent History History: Renal Disease Psycho-Social History: Anxiety, Bipolar Female Reproductive Disorders: Menstrual Problems Other Medical History: L foot bone spures, and spina bifidia, hydrocephelis of spine and shunt,. pt has right kidney only - Past Surgical History Past Surgical History: Yes (shunt, tethered spine x3,kid) Neuro Surgical History: No Pertinent History Cardiac: Other Respiratory: No Pertinent History Gastrointestinal: Cholecystectomy Genitourinary: Kidney Surgery Musculoskeletal: No Pertinent History Female Surgical History: Hysterectomy, Section Other Surgical History: KIDNEY REMOVED LEFT SIDE, "tailbone untethered x2"shunt placed between shoulder blades. ureters reimplanted.surgery on heart valve Significant Family History: no pertinent family hx - Female History Hx Last Menstrual Period: hysterectomy Hx Now: No - Social History Smoking Status: Former smoker How long have you smoked: 12 Exposure to second hand smoke: Yes Drug Use: none Patient Lives Alone: Yes <ADAM IZQUIERDO - Last Filed: 10/01/23 18:54> - Physical Exam General Appearance: no apparent distress, alert, anxiety, obese Eye Exam: PERRL/EOMI, eyes nml inspection Ears, Nose, Throat Exam: normal ENT inspection, moist mucous membranes Neck Exam: normal inspection, non-tender, supple, full range of motion Respiratory Exam: normal breath sounds, lungs clear, airway intact, No chest tenderness, No respiratory distress Cardiovascular Exam: regular rate/rhythm, normal heart sounds, normal peripheral pulses Gastrointestinal/Abdomen Exam: soft, normal bowel sounds, No tenderness Pelvic Exam: not done Rectal Exam: not done Back Exam: normal inspection, normal range of motion, No CVA tenderness, No vertebral tenderness Extremity Exam: normal inspection, normal range of motion, pelvis stable Neurologic Exam: alert, oriented x 3, cooperative, harbor engineer II-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 nml as tested, normal mood/affect, nml cerebellar function, nml station & gait, sensation nml Skin Exam: normal color, warm, dry Lymphatic Exam: No adenopathy SpO2 Interpretation: normal SpO2: 98 O2 Delivery: Room Air <ADAM IZQUIERDO - Last Filed: 10/01/23 18:54> - Nursing Vital Signs Nursing Vital Signs: Initial Vital Signs Temperature 97.8 F 10/01/23 17:54 Pulse Rate 58 L 10/01/23 17:54 Respiratory Rate 20 10/01/23 17:54 Blood Pressure 138/74 10/01/23 17:54 O2 Sat by Pulse Oximetry 98 10/01/23 17:54 Pain Scale Pain Intensity 0 - Course Nursing assessment & vital signs reviewed: Yes <ADAM IZQUIERDO - Last Filed: 10/01/23 18:54> Ordered Tests: Active Orders 24 hr Category Date Time Status CBC W DIFF Stat Lab 10/01/23 18:48 Completed CMP Stat Lab 10/01/23 18:48 Completed MAG [MAGNESIUM] Stat Lab 10/01/23 18:48 Completed Medication Summary Discontinued Medications Generic Name Dose Route Start Last Admin Trade Name Pedro Pablo PRN Reason Stop Dose Admin Magnesium Sulfate/Dextrose 100 mls @ 100 mls/hr 10/01/23 20:15 10/01/23 20:49 Magnesium 1 Gm / 100 Ml D5w IV 10/01/23 22:14 100 mls/hr Q1H ANTOINE Administration Magnesium Sulfate/Dextrose Confirm 10/01/23 20:11 Magnesium 1 Gm / 100 Ml D5w Administered 10/01/23 20:12 Dose 200 mls @ ud IV .STK-MED ONE Potassium Chloride 40 meq 10/01/23 20:04 10/01/23 20:14 Potassium Chloride Tab 10 Meq Tab PO 10/01/23 20:05 40 meq STAT ONE Administration Potassium Chloride Confirm 10/01/23 20:11 Potassium Chloride Tab 10 Meq Tab Administered 10/01/23 20:12 Dose 40 meq .ROUTE .STK-MED ONE Lab/Rad Data: Laboratory Result Diagrams 10/01/23 18:48 10/01/23 18:48 Laboratory Results 10/01/23 10/01/23 10/01/23 Range/Units 18:48 18:48 18:48 WBC 10.7 H (4.0-10.5) x10^3/uL RBC 4.13 (4.1-5.4) x10^6/uL Hgb 12.1 (12.0-16.0) g/dL Hct 37.2 (35-47) % MCV 90.1 (78-100) fL MCH 29.3 (26-32) pg MCHC 32.5 (32-36) g/dL RDW 13.0 (11.5-14.0) % Plt Count 304 (150-450) x10^3/uL MPV 9.3 (7.5-11.0) fL Gran % 62.2 (36.0-66.0) % Immature Gran % (Auto) 0.3 (0.00-0.4) % Nucleat RBC Rel Count 0.0 (0.00-0.1) % Eos # (Auto) 0.27 (0-0.5) x10^3/uL Immature Gran # (Auto) 0.03 (0.00-0.03) x10^3u/L Absolute Lymphs (auto) 3.13 (1.0-4.6) x10^3/uL Absolute Monos (auto) 0.56 (0.0-1.3) x10^3/uL Absolute Nucleated RBC 0.00 (0.00-0.01) x10^3u/L Lymphocytes % 29.2 (24.0-44.0) % Monocytes % 5.2 (0.0-12.0) % Eosinophils % 2.5 (0.00-5.0) % Basophils % 0.6 (0.0-0.4) % Absolute Granulocytes 6.67 (1.4-6.9) x10^3/uL Basophils # 0.06 (0-0.4) x10^3/uL Sodium 137 (135-145) mmol/L Potassium 3.8 (3.5-5.1) mmol/L Chloride 106 (98-107) mmol/L Carbon Dioxide 24 (22-30) mmol/L Anion Gap 10.2 (5-15) MEQ/L BUN 17 (7-17) mg/dL Creatinine 0.82 (0.52-1.04) mg/dL Estimated GFR 93.3 ML/MIN Glucose 93 (74-106) mg/dL Calcium 9.0 (8.4-10.2) mg/dL Magnesium 1.7 (1.6-2.3) mg/dL Total Bilirubin 0.40 (0.2-1.3) mg/dL AST 24 (14-36) U/L ALT 21 (0-35) U/L Alkaline Phosphatase 100 (38-126) U/L Serum Total Protein 6.7 (6.3-8.2) g/dL Albumin 3.9 (3.5-5.0) g/dL <ADAM IZQUIERDO - Last Filed: 10/01/23 18:54> - Progress Progress: improved Counseled pt/family regarding: lab results, diagnosis, need for follow-up <NELLY,CORY M. - Last Filed: 10/01/23 23:00> - Progress Progress Note: 10/01/23 18:17 My medical decision making and the assignment of moderate complexity to this patient's medical issue today is based on review the patient's past medical history, review the patient's medication list, review the patient drug allergy list, history present illness and physical findings on examination. This patient's workup includes placement of intravenous line, CBC, CMP, urinalysis, magnesium level. Differential diagnosis includes electrolyte abnormalities, dehydration, urinary tract infection 10/01/23 18:54 I am transferring care of this patient to Dr. Villegas at shift change. I reviewed the patient history, presenting complaint and the outstanding laboratory studies that are pending. He will review the studies and make final disposition. (ADAM IZQUIERDO) Assumed care at 1900. Laboratory evaluation largely unremarkable. Her magnesium was 1.7 and potassium 3.8. She was given 2 g magnesium via IV piggyback and 40 mill equivalents of potassium chloride by mouth. Bilateral upper extremity numbness and tingling had resolved on reevaluation. She does have a history of a shunt and tethering of her spinal cord. No concern for shunt infection at this time. Patient strongly advised to follow-up with her primary care physician as well as neurosurgeon for further imaging future. Patient also reports left-sided outer hip pain. Exam consistent with gluteus medius tendinitis. Patient given home exercises to start and a prednisone burst. She is unable to take NSAIDs due to only having 1 functioning kidney. Patient is agreeable to plan and has no other questions or concerns at this debbie e. (CORY VILLEGAS) Medical Desision Making - Diagnostic Testing Diagnostic test were ordered, analyzed, and reviewed by me: Yes Radiological Interpretation: Interpreted by me - Risk of complications The pt has a mod risk of morbidity or mortality based on: Need for prescription drug management <CORY VILLEGAS - Last Filed: 10/01/23 23:00> - Departure Departure Disposition: Home Critical Care Time: No <ADAM IZQUIERDO - Last Filed: 10/01/23 18:54> - Departure Critical Care Time: No <CORY VILLEGAS - Last Filed: 10/01/23 23:00> - Departure Clinical Impression: Bilateral arm numbness and tingling while sleeping, Trochanteric bursitis of left hip, Hypomagnesemia Condition: Good Referrals: SANDRA NEWMAN [Primary Care Provider] - Follow up/PCP as directed Instructions: Hip Bursitis (DC), Hip Bursitis Exercises Prescriptions: predniSONE [Prednisone] 50 mg PO DAILY #5 tablet
[2023-10-01 18:50] LABS: Absolute Neutrophil Ct (ANC) 6.67 x10^3/uL (1.4-6.9); BASOPHIL % 0.6 % (0.0-0.4); Basophil (Absolute #) 0.06 x10^3/uL (0-0.4); Eosinophil % 2.5 % (0.00-5.0); Eosinophil (Absolute #) 0.27 x10^3/uL (0-0.5); Hematocrit 37.2 % (35-47); Hemoglobin 12.1 g/dL (12.0-16.0); IMMATURE GRAN # 0.03 x10^3u/L (0.00-0.03); IMMATURE GRAN % 0.3 % (0.00-0.4); Lymphocyte (Absolute #) 3.13 x10^3/uL (1.0-4.6); Lymphocytes % 29.2 % (24.0-44.0); Mean Cell Volume 90.1 fL (78-100); Mean Corpuscular Hemoglobin 29.3 pg (26-32); Mean Corpuscular Hgb Concent. 32.5 g/dL (32-36); Mean Platelet Volume 9.3 fL (7.5-11.0); Monocyte (Absolute #) 0.56 x10^3/uL (0.0-1.3); Monocytes % 5.2 % (0.0-12.0); Neutrophil % 62.2 % (36.0-66.0); Platelet Count 304 x10^3/uL (150-450); Red Blood Count 4.13 x10^6/uL (4.1-5.4); White Blood Count 10.7 x10^3/uL (4.0-10.5)
[2023-10-01 19:03] LABS: ALBUMIN 3.9 g/dL (3.5-5.0); ANION GAP 10.2 MEQ/L (5-15); BILIRUBIN,TOTAL 0.4 mg/dL (0.2-1.3); Creatinine 1 0.82 mg/dL (0.52-1.04); EST GLOMERULAR FILTRATION RATE 93.3 ML/MIN; Potassium 3.8 mmol/L (3.5-5.1); Total Protein 6.7 g/dL (6.3-8.2)
[2023-10-01] MEDS ORDERED: Magnesium 1 Gm / 100 Ml D5W*** 200 ML IV ONE (20:11)
[2023-10-01] MEDS ORDERED: Klor Con ONE (20:11)
[2023-10-01] MEDS: Klor Con PO ONE (20:14)
[2023-10-01] MEDS: Magnesium 1 Gm / 100 Ml D5W*** 100 ML IV SCH (20:16)
[2023-10-01 20:55] VITALS: BP 128/59; PULSE 68; RESP 18; O2SAT 98
== END 2023-10-01 21:49 | disposition home or self-care (01) ==
LOC: ED 17:41
DX: R20.2 Paresthesia of skin (principal); M70.62 Trochanteric bursitis, left hip; E83.42 Hypomagnesemia; Z79.85 Long-term (current) use of injectable non-insulin antidiabetic drugs; Z79.899 Other long term (current) drug therapy
CPT/HCPCS: 36415; 80053; 83735; 85025; 99284; J3475; A9270-GY

== ENCOUNTER 2023-11-12 15:18 | Emergency (ER) | payer MEDICARE ==
[2023-11-12 15:26] VITALS: PULSE 107; RESP 16; TEMP 98.1; O2SAT 98
--- NOTE | 2023-11-12 15:30 | ERPHSYRPT ---
- History of Present Illness Time Seen by Provider: 11/12/23 15:25 Source: patient Exam Limitations: no limitations Patient Subjective Stated Complaint: Pt states "I slipped in the shower last night and hurt my right lower arm. It is a little numb now and I am not sure if I pinched a nerve or what is going on." Triage Nursing Assessment: Pt presented alert and oriented X 3, skin pwd. Pt ambulates iwth an upright steady gait, able to speak in clear full sentences. PT right lower are has no swelling noted, no deformity noted, csm x 4. Physician History: She is a morbidly obese 38-year-old right handed patient of Dr. Jolley who slipped and fell in the bathroom yesterday. She did not hit her head or neck. Patient went and did several different activities today without any issues. However as the time went on, she started experiencing some achiness in eventually mild tingling in the upper extremity on the right side from her shoulder to her wrist. There is no deformity. Patient has full range of motion. There is no evidence for cellulitis. Patient has a history of diabetes, gastroesophageal reflux disease, asthma, hypertension, migraine headaches, TIAs, coronary disease, chronic renal disease and spina bifida. Occurred: yesterday Quality: aching, other (Intermittent mild numbness right upper extremity) Severity of Pain-Max: mild Severity of Pain-Current: mild Extremities Pain Location: shoulder: right, arm: right, elbow: right, forearm: right, wrist: right Modifying Factors: Improves With: movement Associated Symptoms: none, No chest discomfort, No chest pain, No dyspnea Allergies/Adverse Reactions: latex Allergy (Verified 04/15/23 17:58) ibuprofen Adverse Reaction (Verified 04/15/23 17:58) don't take due to kidney issue tape Adverse Reaction (Uncoded 04/15/23 17:58) Home Medications: Omeprazole 20 mg PO DAILY 03/26/19 [History] PARoxetine HCL [Paroxetine HCl] 40 mg PO DAILY 03/26/19 [History] Albuterol 8 gm Mdi Hfa [Ventolin Hfa MDI] 1 puff IH Q4-6HPRN PRN 03/31/21 [History] Fluticasone/Vilanterol [Breo Ellipta 200-25 Mcg INH] 1 puff IH DAILY 03/31/21 [History] Tiotropium [place] [Spiriva Respimat] 1 puff IH DAILY 03/31/21 [History] Aspirin 81 gm Chew [Baby Aspirin 81 mg Chew] 81 mg PO DAILY 02/19/23 [History] Semaglutide [Ozempic] 2 mg SQ UD 02/19/23 [History] Potassium Chloride Tab* [Klor Con] 10 meq PO TID 03/18/23 [History] Albendazole 200 mg PO DAILY 10/01/23 [History] Benazepril HCl [Lotensin] 10 mg PO DAILY 10/01/23 [History] armodafiniL [Armodafinil] 250 mg PO DAILY 10/01/23 [History] Hx Tetanus, Diphtheria Vaccination/Date Given: No Hx Influenza Vaccination/Date Given: No Hx Pneumococcal Vaccination/Date Given: No Immunizations Up to Date: No Travel Risk - International Travel Have you traveled outside of the country in past 3 weeks: No - Emerging Infectious Disease Are you exhibiting symptoms associated with any current EIDs: No - Review of Systems Constitutional: No Symptoms Eyes: No Symptoms Ears, Nose, & Throat: No Symptoms Respiratory: No Symptoms Cardiac: No Symptoms Abdominal/Gastrointestinal: No Symptoms Genitourinary Symptoms: No Symptoms Musculoskeletal: Fall, Injury Skin: No Symptoms Neurological: Other (Mild intermittent numbness right upper extremity) Endocrine: No Symptoms Hematologic/Lymphatic: No Symptoms Immunological/Allergic: No Symptoms All Other Systems: Reviewed and Negative - Past Medical History Pertinent Past Medical History: Yes Neurological History: Migraines, TIA ENT History: No Pertinent History Cardiac History: Coronary Artery Disease, Other Respiratory History: Asthma, Bronchitis Endocrine Medical History: Adrenal Insufficiency Musculoskeletal History: Other GI Medical History: No Pertinent History History: Renal Disease Psycho-Social History: Anxiety, Bipolar Female Reproductive Disorders: Menstrual Problems Other Medical History: L foot bone spures, and spina bifidia, hydrocephelis of spine and shunt,. pt has right kidney only - Past Surgical History Past Surgical History: Yes (shunt, tethered spine x3,kid) Neuro Surgical History: No Pertinent History Cardiac: Other Respiratory: No Pertinent History Gastrointestinal: Cholecystectomy Genitourinary: Kidney Surgery Musculoskeletal: No Pertinent History Female Surgical History: Hysterectomy, Section Other Surgical History: KIDNEY REMOVED LEFT SIDE, "tailbone untethered x2"shunt placed between shoulder blades. ureters reimplanted.surgery on heart valve Significant Family History: no pertinent family hx - Female History Hx Last Menstrual Period: hysterectomy Hx Now: No - Social History Smoking Status: Former smoker How long have you smoked: 12 Exposure to second hand smoke: Yes Drug Use: none Patient Lives Alone: Yes - Social Determinants of Health Will the patient participate in the screening: Yes Do you worry about a steady place to live?: No Do you have any problems with any of the following?: No known problems In the past 12 months,have you had to go without utilities?: No Transportation Issues: No Has anyone in your support network made you feel unsafe?: No Have you or anyone in your house had to go without enough: No - Nursing Vital Signs Nursing Vital Signs: Initial Vital Signs Temperature 98.1 F 11/12/23 15:21 Pulse Rate 107 H 11/12/23 15:21 Respiratory Rate 16 11/12/23 15:21 O2 Sat by Pulse Oximetry 98 11/12/23 15:21 Pain Scale Pain Intensity 0 - Physical Exam General Appearance: no apparent distress, alert, anxiety, obese Eyes, Ears, Nose, Throat Exam: normal ENT inspection, moist mucous membranes Neck Exam: normal inspection, non-tender, supple, full range of motion Cardiovascular/Respiratory Exam: chest non-tender, no respiratory distress Abdominal Exam: non-tender Back Exam: normal inspection, normal range of motion, No CVA tenderness Shoulder Exam: normal inspection, no evidence of injury, normal ROM, No deformity Elbow/Forearm Exam: normal inspection, no evidence of injury, normal ROM, No deformity Wrist Exam: normal inspection, no evidence of injury, normal ROM, No deformity Hand Exam: normal inspection, non-tender, no evidence of injury, normal ROM Neuro/Tendon Exam: normal sensation, normal motor functions, normal tendon functions, responds to pain, no evidence tendon injury Mental Status Exam: alert, oriented x 3, cooperative Skin Exam: normal color, warm, dry SpO2 Interpretation: normal SpO2: 98 O2 Delivery: Room Air - Course Nursing assessment & vital signs reviewed: Yes Ordered Tests: Active Orders 24 hr Category Date Time Status ELBOW (MINIMUM 3 VIEWS) Stat Exams 11/12/23 15:36 Taken FOREARM Stat Exams 11/12/23 15:33 Taken HUMERUS Stat Exams 11/12/23 15:33 Taken SHOULDER Stat Exams 11/12/23 15:33 Taken WRIST (MIN 3 VIEWS) Stat Exams 11/12/23 15:33 Taken - Progress Progress: pain not gone completely, re-examined Progress Note: 11/12/23 15:38 My medical decision making and the assignment of low to moderate complexity of this patient's medical issue is based on review of the patient's past medical history, review the patient's medication list, review patient drug allergy list, history present illness and physical findings on examination. The workup in th is patient includes x-ray of the right shoulder, right humerus, right elbow, right forearm, and right wrist. Differential diagnosis includes but is not limited to dislocation, fracture, fracture dislocation, contusion 11/12/23 16:28 I interpreted the preliminary radiographic reports on the following x-rays of this patient: Right shoulder x-ray shows no acute fracture or dislocation. Right humerus x-ray shows no acute fracture or dislocation. Right elbow x-ray shows no fat pad or cortical disruption. No acute fracture or dislocation. Right forearm x-ray shows no acute fracture or dislocation. Right wrist x-ray shows no acute fracture or dislocation. Counseled pt/family regarding: diagnosis, need for follow-up, rad results Medical Desision Making - Diagnostic Testing Diagnostic test were ordered, analyzed, and reviewed by me: Yes Radiological Interpretation: Interpreted by me - Risk of complications Minimal Risk: Minimal risk of morbidity - Departure Departure Disposition: Home Clinical Impression: Right upper limb pain, Fall with no significant injury Condition: Stable Critical Care Time: No Referrals: SANDRA JOLLEY [Primary Care Provider] - Follow up/PCP as directed Additional Instructions: Ice pack to tender areas 3-4 times a day for the next 72 hours. Use Tylenol for pain control. Call your primary care provider on 11/14/2023, to make arranges for follow-up appointment to be seen in the next 3 to 5 days for further evaluation management. If your pain persists, or increases, you may follow-up in the [facility] orthopedic clinic. It is a walk-in clinic. You do not need to have an appointment. It is open Tuesday through Tuesday 8 AM to 10 AM.
[2023-11-12] MEDS ORDERED: Dextrose 5%-Lr IV Solution 1000 ML 1,000 ML IV SCH (17:00)
--- NOTE | 2023-11-12 19:59 | XRAY ---
Indication: Pain following fall. Comparison: None 3 view right elbow obtained. No bony, articular, or soft tissue abnormalities.
--- NOTE | 2023-11-12 20:01 | XRAY ---
Indication: Pain following fall. Comparison: None 3 view right shoulder limited due to suboptimal technique and overlying external clothing artifact. No bony, articular, or soft tissue abnormalities.
--- NOTE | 2023-11-12 20:01 | XRAY ---
Indication: Pain following fall. Comparison: None 2 view right forearm obtained. No bony, articular, or soft tissue abnormalities.
--- NOTE | 2023-11-12 20:03 | XRAY ---
Indication: Pain following fall. Comparison: None 3 view right wrist obtained. No bony, articular, or soft tissue abnormalities.
--- NOTE | 2023-11-12 20:03 | XRAY ---
Indication: Pain following fall. Comparison: None 2 view right humerus obtained and interpreted with right shoulder exam of the same day. No bony, articular, or soft tissue abnormalities.
== END 2023-11-12 16:52 | disposition home or self-care (01) ==
LOC: ED 15:18
DX: Z04.3 Encounter for examination and observation following other accident (principal); M79.601 Pain in right arm; E11.22 Type 2 diabetes mellitus with diabetic chronic kidney disease; I12.9 Hypertensive chronic kidney disease with stage 1 through stage 4 chronic kidney disease, or unspecified chronic kidney disease; N18.9 Chronic kidney disease, unspecified; Z79.85 Long-term (current) use of injectable non-insulin antidiabetic drugs; Z79.899 Other long term (current) drug therapy
CPT/HCPCS: 73030; 73060; 73080; 73090; 73110; 99282

== ENCOUNTER 2024-03-16 10:32 | Emergency (ER) | payer MEDICARE ==
[2024-03-16 10:45] VITALS: RESP 22; TEMP 97.5; O2SAT 98
--- NOTE | 2024-03-16 10:50 | ERPHSYRPT ---
- History of Present Illness Time Seen by Provider: 03/16/24 10:49 Source: patient, family Exam Limitations: no limitations Patient Subjective Stated Complaint: Pt states "I have had a headache, fever and body aches for a week." Triage Nursing Assessment: Pt presented alert and oriented X 3, skin pwd Pt ambulates with an upright steady gait, able to speak in clear full sentences. Pt moaning on the bed in no apparent respiratory distress. Physician History: This is a morbidly obese 39-year-old white female patient arrives by private vehicle and is a patient of Dr. Jolley with a complaint of fever, headache and bodyaches for approximately 1 week. Symptoms began on 03/09/2024. Patient does not have much of a sore throat and has not been coughing. Patient has had a hysterectomy in the past. She has a history of depression, anxiety, gastroesophageal reflux disease, asthma bronchitis as well as migraine headaches and a history of chronic renal disease. Timing/Duration: week(s) (1) Cough Quality/Degree: no cough Possible Cause: no prior episodes Associated Symptoms: fever, headache, muscle aches, No chest pain/soreness, No cough, No sore throat Allergies/Adverse Reactions: latex Allergy (Verified 02/03/24 14:02) ibuprofen Adverse Reaction (Verified 02/03/24 14:02) don't take due to kidney issue tape Adverse Reaction (Uncoded 02/03/24 14:02) Home Medications: Omeprazole 20 mg PO DAILY 03/26/19 [History] PARoxetine HCL [Paroxetine HCl] 20 mg PO DAILY 03/26/19 [History] Albuterol 8 gm Mdi Hfa [Ventolin Hfa MDI] 1 puff IH Q4-6HPRN PRN 03/31/21 [History] Fluticasone/Vilanterol [Breo Ellipta 200-25 Mcg INH] 1 puff IH DAILY 03/31/21 [History] Aspirin 81 gm Chew [Baby Aspirin 81 mg Chew] 81 mg PO DAILY 02/19/23 [History] Semaglutide [Ozempic] 2 mg SQ UD 02/19/23 [History] armodafiniL [Armodafinil] 250 mg PO DAILY 10/01/23 [History] Hx Tetanus, Diphtheria Vaccination/Date Given: No Hx Influenza Vaccination/Date Given: No Hx Pneumococcal Vaccination/Date Given: No Immunizations Up to Date: No Travel Risk - International Travel Have you traveled outside of the country in past 3 weeks: No - Emerging Infectious Disease Are you exhibiting symptoms associated with any current EIDs: Yes Symptoms: Fever, Headaches/Body Aches/ - Review of Systems Constitutional: Fever (Fever at home but no fever here in the emergency department) Eyes: No Symptoms Ears, Nose, & Throat: No Symptoms Respiratory: No Symptoms Cardiac: No Symptoms Abdominal/Gastrointestinal: No Symptoms Genitourinary Symptoms: No Symptoms Musculoskeletal: Arthralgias, Myalgias Skin: No Symptoms Neurological: Headache Psychological: No Symptoms Endocrine: No Symptoms Hematologic/Lymphatic: No Symptoms Immunological/Allergic: No Symptoms All Other Systems: Reviewed and Negative - Past Medical History Pertinent Past Medical History: Yes Neurological History: Migraines, TIA ENT History: No Pertinent History Cardiac History: Coronary Artery Disease, Other Respiratory History: Asthma, Bronchitis Endocrine Medical History: Adrenal Insufficiency Musculoskeletal History: Other GI Medical History: No Pertinent History History: Renal Disease Psycho-Social History: Anxiety, Bipolar Female Reproductive Disorders: Menstrual Problems Other Medical History: L foot bone spures, and spina bifidia, hydrocephelis of spine and shunt,. pt has right kidney only - Past Surgical History Past Surgical History: Yes (shunt, tethered spine x3,kid) Neuro Surgical History: No Pertinent History Cardiac: Other Respiratory: No Pertinent History Gastrointestinal: Cholecystectomy Genitourinary: Kidney Surgery Musculoskeletal: No Pertinent History Female Surgical History: Hysterectomy, Section Other Surgical History: KIDNEY REMOVED LEFT SIDE, "tailbone untethered x2"shunt placed between shoulder blades. ureters reimplanted.surgery on heart valve Significant Family History: no pertinent family hx - Female History Hx Last Menstrual Period: hysterectomy Hx Now: No - Social History Smoking Status: Former smoker How long have you smoked: 12 Exposure to second hand smoke: Yes Drug Use: none Patient Lives Alone: Yes - Social Determinants of Health Will the patient participate in the screening: Yes Do you worry about a steady place to live?: No Do you have any problems with any of the following?: No known problems In the past 12 months,have you had to go without utilities?: No Transportation Issues: No Has anyone in your support network made you feel unsafe?: No Have you or anyone in your house had to go without enough: No - Nursing Vital Signs Nursing Vital Signs: Initial Vital Signs Temperature 97.5 F 03/16/24 10:41 Pulse Rate 89 03/16/24 10:41 Respiratory Rate 22 03/16/24 10:41 Blood Pressure 148/85 03/16/24 10:41 O2 Sat by Pulse Oximetry 98 03/16/24 10:41 Pain Scale Pain Intensity 4 - Physical Exam General Appearance: mild distress, alert, obese Eye Exam: PERRL/EOMI, eyes nml inspection Ears, Nose, Throat Exam: normal ENT inspection, moist mucous membranes Neck Exam: normal inspection, non-tender, supple, full range of motion Respiratory Exam: normal breath sounds, lungs clear, airway intact, No chest tenderness, No respiratory distress Cardiovascular Exam: regular rate/rhythm, normal heart sounds, normal peripheral pulses Gastrointestinal/Abdomen Exam: soft, normal bowel sounds, No tenderness Pelvic Exam: not done Rectal Exam: not done Back Exam: normal inspection, normal range of motion, No CVA tenderness, No vertebral tenderness Extremity Exam: normal inspection, normal range of motion, pelvis stable Neurologic Exam: alert, oriented x 3, cooperative, head waiter II-XII nml as tested, nml cerebellar function, nml station & gait, sensation nml Skin Exam: normal color, warm, dry Lymphatic Exam: No adenopathy SpO2 Interpretation: normal SpO2: 98 O2 Delivery: Room Air - Course Nursing assessment & vital signs reviewed: Yes Ordered Tests: Active Orders 24 hr Category Date Time Status UA W/RFX UR CULTURE Stat Lab 03/16/24 12:18 Completed Lab/Rad Data: Laboratory Results 03/16/24 03/16/24 03/16/24 Range/Units 12:18 11:06 11:06 Urine Color Yellow (Yellow) Urine Appearance Clear (Clear) Urine pH 7.0 (4.6-8.0) Ur Specific [place] 1.010 (1.005-1.030) Urine Protein Negative (Negative) Urine Glucose (UA) Negative (Negative) mg/dL Urine Ketones Negative (Negative) Urine Blood Negative (Negative) Urine Nitrite Negative (Negative) Urine Bilirubin Negative (Negative) Urine Urobilinogen 1.0 A (0.2) mg/dL Ur Leukocyte Esterase Negative (Negative) U Hyaline Cast (Auto) NONE SEEN (0-2) /LPF Urine Microscopic RBC 0-2 (0-5) /HPF Urine Microscopic WBC 0-2 (0-5) /HPF Ur Epithelial Cells Moderate A (None Seen) /HPF Urine Bacteria Rare A (None Seen) /HPF Urine Culture Reflexed NO (NO) Influenza Type A Ag NEGATIVE (NEGATIVE) Influenza Type B Ag NEGATIVE (NEGATIVE) RSV (PCR) NEGATIVE (NEGATIVE) SARS-CoV-2 (PCR) NEGATIVE (NEGATIVE) Group A Strep Antibody NOT DETECTED (NEGATIVE) - Progress Progress: unchanged Air Movement: good Progress Note: 03/16/24 11:43 My medical decision making and the assignment of low complexity to this patient's medical issue today is based on review of the patient's past medical history, review of the patient's medication list, reviewed patient drug allergy list, history present illness and physical findings on examination. The workup in this patient includes urinalysis, viral swabs, group A strep test. Differential diagnosis includes but is not limited to strep pharyngitis, viral illness, dehydration, urinary tract infection 03/16/24 12:40 I interpreted the patient's laboratory data results. Based on laboratory data results, the patient does not have any acute, emergent medical issue. Blood Culture(s) Obtained: No Antibiotics given: No Counseled pt/family regarding: lab results, diagnosis, need for follow-up Medical Desision Making - Diagnostic Testing Diagnostic test were ordered, analyzed, and reviewed by me: Yes - Risk of complications Low Risk: Low risk of morbidity from additional dx testing or treatment - Departure Departure Disposition: Home Clinical Impression: Viral syndrome Condition: Stable Critical Care Time: No Referrals: SANDRA JOLLEY [Primary Care Provider] - Follow up/PCP as directed Additional Instructions: Drink plenty of fluids. Use Tylenol 650 mg orally every 4 hours while awake to control aches and pains and fevers. Call your primary care provider today, 03/16/2024, to make arranges for follow-up appointment for further evaluation management
[2024-03-16 11:45] LABS: INFLUENZA A NEGATIVE (NEGATIVE); INFLUENZA B NEGATIVE (NEGATIVE); RESPIRATORY SYNCTIAL VIRUS NEGATIVE (NEGATIVE); SARS-CoV-2 Xpert Express NEGATIVE (NEGATIVE)
[2024-03-16 11:55] VITALS: PULSE 50
[2024-03-16 12:30] LABS: Appearance Clear (Clear); Bacteria Rare /HPF (None Seen); Bilirubin Negative (Negative); Blood Negative (Negative); Epithelial Cells Moderate /HPF (None Seen); Glucose, Urine Negative (Negative); Hyaline Casts NONE SEEN /LPF (0-2); Ketones Negative (Negative); Leukocyte Esterase Negative (Negative); Nitrite Negative (Negative); Protein,Urine Dip Negative (Negative); RBC 0-2 /HPF (0-5); WBC 0-2 /HPF (0-5)
[2024-03-16 12:52] VITALS: BP 156/66
== END 2024-03-16 12:56 | disposition home or self-care (01) ==
LOC: ED 10:32
DX: B34.9 Viral infection, unspecified (principal); R51.9 Headache, unspecified; R50.9 Fever, unspecified; M79.10 Myalgia, unspecified site; N18.9 Chronic kidney disease, unspecified; Z79.85 Long-term (current) use of injectable non-insulin antidiabetic drugs; Z79.899 Other long term (current) drug therapy
CPT/HCPCS: 0241U; 81001; 87651; 99283